=== PATIENT | male | born 1935 | race Caucasian/White ===

== ENCOUNTER 2017-01-19 09:19 | Inpatient (IN) | payer OTHER, BC ==
[~2017-01-19] VITALS: Ht 185.4 cm; Wt 99.3 kg
[~2017-01-19 09:19] MED LIST: ASPEC81 PO; DPKSR500 PO; LATA0.009 OPB; LISI40TA PO; MULT-506 PO; OLAN-111 PO; POLY335019 PO; PSYL55.43 PO; SIMV20TA2 PO; SYN100 PO; [UNRECOGNIZED DRUG - OTHER] NAE
[2017-01-19 10:05] LABS: BASO % 0.1 %; BASO ABS # 0.01 K/uL (0-0.2); COMPLETE YES; EOS % 0.6 %; HEMATOCRIT 53.7 % (42-52); IG% 0.1 %; LYMPH ABS # 1.62 K/uL (1.2-3.4); MEAN CELL VOLUME 95.7 fL (80-100); MEAN CORPUSCULAR HEMOGLOBIN 34.2 pg (25-34); MEAN CORPUSCULAR HGB CONC 35.8 g/dl (32-36); MEAN PLATELET VOLUME 9.9 fL (7.4-10.4); MONO % 9.6 %; NEUT % 71.6 %; PLATELET COUNT 142 K/uL (130-400); RED BLOOD COUNT 5.61 M/uL (4.7-6.1)
[2017-01-19 10:14] LABS: BUN/CREATININE RATIO 12.7 (10-20); CALCIUM 10.1 mg/dl (8.5-10.1); POTASSIUM 4.6 mmol/L (3.5-5.1)
[2017-01-19] MEDS ORDERED: SODIUM CHLORIDE 0.9% 500ML 500 ML IV STA (10:22)
--- NOTE | 2017-01-19 10:26 | DIAGNOSTIC IMAGING REPORT ---
HEAD CT NONCONTRAST CT DOSE: 1285.03 mGy.cm HISTORY: Headache. TECHNIQUE: Multiaxial CT images of the head were performed without the use of intravenous contrast. Automated exposure control was utilized for this study. Comparison: Head CT 04/23/2007. Findings: Mild motion artifact. The calvarium and skull base are intact. There is no mass, hematoma, midline shift, acute infarct. White matter hypodensity is nonspecific but suggestive of microvascular ischemic change. The ventricles and sulci demonstrate mild age-related involutional changes. Impression: No acute intracranial abnormality. Atrophy and microvascular ischemic changes. Electronically signed by: Erik Juares M.D. 01/19/2017 10:25 AM Dictated Date/Time: 01/19/2017 10:21 AM
--- NOTE | 2017-01-19 10:31 | DIAGNOSTIC IMAGING REPORT ---
SINUS CT CT DOSE: HISTORY: Headache. eval for sinusitis TECHNIQUE: Multiaxial CT images of the paranasal sinuses were performed and reformatted in the coronal plane without the use of contrast. COMPARISON: Head CT 04/23/2007. FINDINGS: Mild mucosal thickening within the right frontal sinus and ethmoid air cells. The sphenoid sinuses, maxillary sinuses, and mastoid air cells are clear. There is S-shaped deviation of the nasal septum. No fluid levels within the paranasal sinuses. The bilateral ostiomeatal units are patent. The orbits are unremarkable. IMPRESSION: Mild chronic sinus disease as described above. No fluid levels within the paranasal sinuses. Electronically signed by: Erik Juares M.D. 01/19/2017 10:30 AM Dictated Date/Time: 01/19/2017 10:21 AM
[2017-01-19 10:46] LABS: THYROID STIMULATING HORMONE 1.33 uIu/ml (0.300-4.500)
[2017-01-19 10:49] LABS: PARTIAL THROMBOPLASTIN RATIO 1.1; PROTHROMBIN TIME (PATIENT) 10.7 SECONDS (9.0-12.0)
[2017-01-19 10:57] LABS: URINE APPEARANCE CLEAR (CLEAR); URINE BILIRUBIN NEG (NEG); URINE COLOR YELLOW; URINE EPITHELIAL CELL AUTO 0-5 /lpf (0-5); URINE NITRITE NEG (NEG); URINE PH 8.5 (4.5-7.5); URINE SPECIFIC GRAVITY 1.012 (1.000-1.030); UROBILINOGEN NEG (NEG)
[2017-01-19 11:03] LABS: MANUAL MICROSCOPIC REQUIRED? NO; REVIEW REQ? NO
[2017-01-19 11:04] LABS: SULFASALICYLIC ACID POS (NEG)
[2017-01-19] MEDS ORDERED: ONDANSETRON INJ 2 MG/ML 2 ML VIAL IV STA (11:08)
[2017-01-19] MEDS ORDERED: MoRPHine SULFATE 2 MG/ML CARP IV STA (11:08)
[2017-01-19] MEDS ORDERED: ASPI81TA28 PO (11:10)
--- NOTE | 2017-01-19 11:33 | DIAGNOSTIC IMAGING REPORT ---
CHEST ONE VIEW PORTABLE CLINICAL HISTORY: Shortness of breath. COMPARISON STUDY: Chest radiograph July 30, 2014. FINDINGS: The patient is rotated. There is no pneumothorax. Hazy left basilar opacity is again noted. There are old left rib fractures. Mild cardiomegaly is noted without evidence of pulmonary edema. IMPRESSION: 1. Mild left basilar opacity which is likely chronic. Pneumonia would be difficult to exclude but is considered less likely. 2. Mild right lower lung opacity which favors atelectasis. Electronically signed by: Deng Ayala M.D. 01/19/2017 11:32 AM Dictated Date/Time: 01/19/2017 11:30 AM
[2017-01-19] MEDS ORDERED: DIVA500T3 PO (11:56)
[2017-01-19] MEDS ORDERED: FLUT0.15 NAE (11:58)
[2017-01-19] MEDS ORDERED: LATA0.009 OPB (12:00)
[2017-01-19] MEDS ORDERED: PSYL58.611 PO (12:02)
[2017-01-19] MEDS ORDERED: METR0.7527 TOP (12:08)
[2017-01-19] MEDS ORDERED: LEVO100T7 PO (12:11)
[2017-01-19] MEDS ORDERED: KETOROLAC TROMETHAMINE 15 MG/ML VIAL IM PRN (12:15)
[2017-01-19] MEDS ORDERED: ONDANSETRON INJ 2 MG/ML 2 ML VIAL IV PRN (12:15)
[2017-01-19] MEDS ORDERED: ASPCH81X PO (12:16)
[2017-01-19] MEDS ORDERED: POLYETHYLENE (MIRALAX) 17 GM PACK PO PRN (12:30)
[2017-01-19] MEDS ORDERED: LISINOPRIL 40 MG TAB PO STA (12:35)
--- NOTE | 2017-01-19 12:59 | History and Physical ---
History & Physical Date & Time of Service: January 19, 2017 at 12:17 Chief Complaint: headache Primary Care Physician: Anthony Ace D.O. History of Present Illness Source: patient, spouse, clinic records, hospital records This is an 81 year old male with PMH of HTN, HL, chronic bifascicular block, hypothyroidism, bipolar disorder, and other problems listed below who presents to the ED for headache. Patient states 2-3 days ago he started having tooth pain in left lower molar where he had a prior root canal. Pain was exacerbated with chewing so PO intake has been limited to liquids. Then yesterday afternoon he developed headache described as severe sinus pressure in the left temporal and left maxillary regions. He states Tylenol initially helped but overnight Tylenol was no longer controlling the pain and he was unable to sleep. He rates headache 8/10 despite 2 mg IV morphine given 30 minutes prior to exam. Overnight patient was subjectively warm and cold, "on edge", and shaky. Pt reports "not much" SOB, only that he cannot catch his breath at times due to pain. Patient admits to pollen allergy and states over past 1 week has rhinorrhea, postnasal drip, increased throat clearing. He states urine was more frequent than usual overnight but denies dysuria. Pt has been generally weak and tired. states patient has chronic shuffling gait and ambulates unassisted. Patient denies vision change, itchy watery eyes, focal weakness or numbness, sore throat, ear ache, change in chronic left ear hearing loss, cough , chest pain, abdominal pain, nausea, vomiting, diarrhea, edema, abnormal bleeding. 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 (10) RBBB Status: Chronic (11) Secondary polycythemia Status: Chronic Surgical Problems: (1) S/P TURP (status post transurethral resection of prostate) Status: Chronic Family History Diabetes mellitus Heart disease Hypertension Lung disease Social History Smoking Status: Never Smoker Alcohol Use: none Marital Status: Housing status: lives with significant other Occupational Status: retired Immunizations History of Influenza Vaccine: Yes Influenza Vaccine Date: Jun 23, 2006 History of Tetanus Vaccine?: Unknown History of Pneumococcal: Unknown History of Hepatitis B Vaccine: No Multi-Drug Resistant Organisms History of MDRO: No Allergies Coded Allergies: Rofecoxib (Verified Allergy, Mild, ITCHING, 01/19/17) Clonazepam (Verified Allergy, Unknown, 01/19/17) Ethanol (Verified Allergy, Unknown, 01/19/17) Imipramine (Verified Allergy, Unknown, 01/19/17) Risperidone (Verified Allergy, Unknown, 01/19/17) Thioridazine (Verified Allergy, Unknown, 01/19/17) Valproic Acid (Verified Adverse Reaction, Severe, unknown, 01/19/17) Home Medications Scheduled Aspirin (Aspirin Chewable), 81 MG PO DAILY Divalproex Sodium (Depakote Er), 1 TAB PO BID Fluticasone Propionate (Nasal) (Flonase Allergy Relief), 2 SPRAYS HEYDI DAILY Latanoprost (Xalatan 0.005% Oph Nel), 1 DROPS OPB DAILY Levothyroxine Sodium (Levothyroxine Sodium), 1 TAB PO DAILY Lisinopril (Zestril), 40 MG PO DAILY Multivitamin (Multivitamin), 1 TAB PO DAILY Olanzapine (Zyprexa), 5 MG PO HS Psyllium (Metamucil Smooth Texture), 1 DOSE PO HS Simvastatin (Zocor), 20 MG PO HS Scheduled PRN Polyethylene Glycol 3350 (Miralax), 17 GM PO QPM PRN for Constipation Review of Systems Ten systems reviewed and negative except as listed in HPI. Physical Exam Vital Signs Date Time Temp Pulse Resp B/P Pulse Ox O2 Delivery O2 Flow Rate FiO2 01/19/17 10:49 72 22 187/92 95 Room Air 01/19/17 10:42 79 01/19/17 09:21 36.8 94 20 184/102 96 Room Air General Appearance: WD/WN, + pertinent finding (alert cooperative 81 year old male, lying in bed, appears mildly uncomfortable due to headache, at bedside) Head: normocephalic, atraumatic Eyes: normal inspection, PERRL, EOMI ENT: TMs normal, pharynx normal, + pertinent finding (chronic decreased hearing on the left. no nasal drainage. +left maxillary sinus tenderness. + left posterior mandibular molar tender with mild periodontal inflammation. no fluctuant area. ) Neck: supple, trachea midline Respiratory/Chest: lungs clear, normal breath sounds, no respiratory distress, no accessory muscle use Cardiovascular: regular rate, rhythm, no murmur Abdomen/GI: normal bowel sounds, non tender, soft Extremities/Musculoskelatal: no calf tenderness, no pedal edema Neurologic/Psych: alert, normal mood/affect, oriented x 3, + pertinent finding (mild tremor of upper extremities. strength 5/5 all extremities) Skin: normal color, warm/dry Diagnostics Laboratory Results Results Past 24 Hours Test 01/19/17 09:40 01/19/17 10:31 01/19/17 10:40 Range/Units White Blood Count 9.00 4.8-10.8 K/uL Red Blood Count 5.61 4.7-6.1 M/uL Hemoglobin 19.2 14.0-18.0 g/dL Hematocrit 53.7 42-52 % Mean Corpuscular Volume 95.7 80-100 fL Mean Corpuscular Hemoglobin 34.2 25-34 pg Mean Corpuscular Hemoglobin Concent 35.8 32-36 g/dl Platelet Count 142 130-400 K/uL Mean Platelet Volume 9.9 7.4-10.4 fL Neutrophils (%) (Auto) 71.6 % Lymphocytes (%) (Auto) 18.0 % Monocytes (%) (Auto) 9.6 % Eosinophils (%) (Auto) 0.6 % Basophils (%) (Auto) 0.1 % Neutrophils # (Auto) 6.45 1.4-6.5 K/uL Lymphocytes # (Auto) 1.62 1.2-3.4 K/uL Monocytes # (Auto) 0.86 0.11-0.59 K/uL Eosinophils # (Auto) 0.05 0-0.5 K/uL Basophils # (Auto) 0.01 0-0.2 K/uL RDW Standard Deviation 44.2 36.4-46.3 fL RDW Coefficient of Variation 12.7 11.5-14.5 % Immature Granulocyte % (Auto) 0.1 % Immature Granulocyte # (Auto) 0.01 0.00-0.02 K/uL Sodium Level 131 136-145 mmol/L Potassium Level 4.6 3.5-5.1 mmol/L Chloride Level 94 98-107 mmol/L Carbon Dioxide Level 32 21-32 mmol/L Anion Gap 5.0 3-11 mmol/L Blood Urea Nitrogen 13 7-18 mg/dl Creatinine 1.00 0.60-1.40 mg/dl Est Creatinine Clear Calc Drug Dose 71.8 ml/min Estimated GFR () 80.9 Estimated GFR (Non- 69.8 BUN/Creatinine Ratio 12.7 10-20 Random Glucose 203 70-99 mg/dl Calcium Level 10.1 8.5-10.1 mg/dl Total Bilirubin 0.6 0.2-1 mg/dl Direct Bilirubin 0.2 0-0.2 mg/dl Aspartate Amino Transf (AST/SGOT) 17 15-37 U/L Alanine Aminotransferase (ALT/SGPT) 37 12-78 U/L Alkaline Phosphatase 58 45-117 U/L Troponin I 0.063 0-0.045 ng/ml Total Protein 8.4 6.4-8.2 gm/dl Albumin 4.3 3.4-5.0 gm/dl Amylase Level 90 25-115 U/L Thyroid Stimulating Hormone (TSH) 1.330 0.300-4.500 uIu/ml Free Thyroxine 0.96 0.80-1.60 ng/dl Valproic Acid (Depakene) Level 52 50-100 mcg/ml Prothrombin Time 10.7 9.0-12.0 SECONDS Prothromb Time International Ratio 1.0 0.9-1.1 Activated Partial Thromboplast Time 28.1 21.0-31.0 SECONDS Partial Thromboplastin Ratio 1.1 Urine Color YELLOW Urine Appearance CLEAR CLEAR Urine pH 8.5 4.5-7.5 Urine Specific [place] 1.012 1.000-1.030 Urine Protein 1+ NEG Urine Glucose (UA) 1+ NEG Urine Ketones NEG NEG Urine Occult Blood TRACE NEG Urine Nitrite NEG NEG Urine Bilirubin NEG NEG Urine Urobilinogen NEG NEG Urine Leukocyte Esterase TRACE NEG Urine WBC (Auto) 1-5 0-5 /hpf Urine RBC (Auto) 0-4 0-4 /hpf Urine Hyaline Casts (Auto) 1-5 0-5 /lpf Urine Epithelial Cells (Auto) 0-5 0-5 /lpf Urine Bacteria (Auto) NEG NEG Diagnostic Radiology SINUS CT CT DOSE: HISTORY: Headache. eval for sinusitis TECHNIQUE: Multiaxial CT images of the paranasal sinuses were performed and reformatted in the coronal plane without the use of contrast. COMPARISON: Head CT 04/23/2007. FINDINGS: Mild mucosal thickening within the right frontal sinus and ethmoid air cells. The sphenoid sinuses, maxillary sinuses, and mastoid air cells are clear. There is S-shaped deviation of the nasal septum. No fluid levels within the paranasal sinuses. The bilateral ostiomeatal units are patent. The orbits are unremarkable. IMPRESSION: Mild chronic sinus disease as described above. No fluid levels within the paranasal sinuses. HEAD CT NONCONTRAST CT DOSE: 1285.03 mGy.cm HISTORY: Headache. TECHNIQUE: Multiaxial CT images of the head were performed without the use of intravenous contrast. Automated exposure control was utilized for this study. Comparison: Head CT 04/23/2007. Findings: Mild motion artifact. The calvarium and skull base are intact. There is no mass, hematoma, midline shift, acute infarct. White matter hypodensity is nonspecific but suggestive of microvascular ischemic change. The ventricles and sulci demonstrate mild age-related involutional changes. Impression: No acute intracranial abnormality. Atrophy and microvascular ischemic changes. CHEST ONE VIEW PORTABLE CLINICAL HISTORY: Shortness of breath. COMPARISON STUDY: Chest radiograph July 30, 2014. FINDINGS: The patient is rotated. There is no pneumothorax. Hazy left basilar opacity is again noted. There are old left rib fractures. Mild cardiomegaly is noted without evidence of pulmonary edema. IMPRESSION: 1. Mild left basilar opacity which is likely chronic. Pneumonia would be difficult to exclude but is considered less likely. 2. Mild right lower lung opacity which favors atelectasis. EKG sinus rhythm with sinus arrhythmia and 1st degree AV block, rate 69 bpm, RBBB, LAFB, bifascicular block, possible LVH. no significant change from prior EKG in [facility] from May 06 2016. Impression Assessment and Plan HEADACHE Likely due to dental infection CT head- no acute findings CT sinuses- chronic sinusitis No sign of sepsis Start IV Unasyn Pain control with PRN Toradol Mechanical soft diet to advance as tolerated F/u with dentist after discharge MILDLY ABNORMAL TROPONIN Denies chest pain EKG shows chronic RBBB, LAFB, bifascicular block Likely due to elevated BP Recheck troponin at 1500 HYPERTENSION BP elevated in ER Likely due to missed lisinopril this morning, pain, and anxiety Give missed dose of lisinopril 40 mg now Continue home lisinopril 40 mg daily MILD HYPONATREMIA Na is 131; no recent labs for comparison; was 134 in 2013 Likely hypovolemic Gentle NSS Recheck PRP in am HYPERGLYCEMIA Random glucose 200 in ER Check A1c Monitor BSG AC HS DYSLIPIDEMIA Continue statin HYPOTHYROIDISM TSH is WNL Continue levothyroxine BIPOLAR DISORDER Stable, continue home medications CODE STATUS Full code per my discussion with the patient DVT PROPHYLAXIS Lovenox SQ DISPOSITION care services manager consulted for discharge planning PT and OT evaluations Lives at home with Patient seen in collaboration with Dr. Peraza. Please see his addendum. Attending Addendum; The patient was seen and examined Complains of Headache and left facial pain No Chest pain,palpitation or SOB No abdominal pain,nausea and or vomiting O/E Hemodynamically stable HEENT -unremarkable ,some sinus tenderness on left Chest-clear Heart-regular Abdomen-benign Labs and Imaging studies were reviewed Agree with the assessment and plan Troponin went up to 0.06 to 0.1-transferred to Tele ,may need Heparin IV if goes up further Dr Clement Peraza VTE Prophylaxis VTE Risk Assessment Done? Y/N: Yes Risk Level: Moderate
[2017-01-19 13:09] LABS: ESTIMATED AVERAGE GLUCOSE 126 mg/dl; HA1C FLAG Normal (Normal)
[2017-01-19 13:30] VITALS: BP 172/58; PULSE 89; TEMP 36.7; Ht 185.4 cm; Wt 99.3 kg
[2017-01-19 13:37] VITALS: BP 172/58; PULSE 89; TEMP 36.7; O2SAT 94
[2017-01-19] MEDS ORDERED: IV FLUIDS COMPLETED PRN (13:45)
[2017-01-19] MEDS: SODIUM CHLORIDE 0.9% 1000ML 1,000 ML IV SCH (13:50)
[2017-01-19] MEDS: AMPICILLIN/SULBACTAM SOD INJ 1,500 MG in SODIUM CHLORIDE 0.9% 100ML 100 ML IV SCH ×2 (14:00→20:25)
[2017-01-19] MEDS ORDERED: NURSING VERBAL MED ORDER ONE (14:45)
[2017-01-19] MEDS ORDERED: KETOROLAC TROMETHAMINE 15 MG/ML VIAL IV. PRN (15:00)
[2017-01-19 15:33] VITALS: BP 169/76; PULSE 80; TEMP 37; O2SAT 95
[2017-01-19] MEDS: MoRPHine SULFATE 2 MG/ML CARP IV PRN ×2 (16:51→21:06)
--- NOTE | 2017-01-19 16:59 | EMERGENCY ROOM VISIT NOTE ---
History Report prepared by Tg: Markel Hall Under the Supervision of: Dr. Juan C Johnson M.D. First contact with patient: 09:37 Chief Complaint: HEADACHE Stated Complaint: SEVERE HEADACHE,STROKE SYMPTOMS History of Present Illness The patient is a 81 year old male who presents to the Emergency Room with complaints of a headache starting yesterday evening around 4-5 pm. He reports the pain to be located on the left side of the head, frontal area, and facial. He describes it as a sharp pain which is relieved with a Tylenol but the pressure has been persistent. He feels like it is a sinus headache. He has had similar headaches in the past but not for a number of years. He does have environmental allergies that generally give him sinus symptoms. He took 500 mg Tylenol 3 times. The first 2 times he had some relief but did not have any relief this morning. He had nausea after taking the Tylenol but denies vomiting. He also complains of sinus congestion and shortness of breath. He reports feeling hot and cold yesterday but denies any fevers. He normally has a slight tremor which worsened this morning. He reports some generalized weakness. He denies chest pain, numbness or tingling, focal weakness, or any other complaints. As per patient and his , the patient had a similar headache about 10 years ago. The patient's is unsure if he was diagnosed with a stroke or not at the time. He started having tooth pain 2 days ago. The patient reports one molar with a root canal that has been more tender than normal. He feels like it might be giving him pain in his face. He has seasonal allergies. He takes baby aspirin but denies any other blood thinners. The patient is no longer on lithium. He is on Depakote and olanzapine. Source of History: patient, spouse/significant other Onset: yesterday evening around 4-5 pm Position: head Quality: pressure, sharp Timing: constant Modifying Factors (Relieving): tylenol Associated Symptoms: + SOB, + nausea, + weakness, No chest pain, No fevers, No numbness, No vomiting Review of Systems See HPI for pertinent positives & negatives. A total of 10 systems reviewed and were otherwise negative. 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 Surgical Problems: (1) S/P TURP (status post transurethral resection of prostate) Family History Diabetes mellitus Heart disease Hypertension Lung disease Social History Smoking Status: Never Smoker Marital Status: Housing Status: lives with significant other Occupation Status: retired Current/Historical Medications Scheduled Aspirin (Aspirin Chewable), 81 MG PO DAILY Divalproex Sodium (Depakote Er), 1 TAB PO BID Fluticasone Propionate (Nasal) (Flonase Allergy Relief), 2 SPRAYS HEYDI DAILY Latanoprost (Xalatan 0.005% Oph Nel), 1 DROPS OPB DAILY Levothyroxine Sodium (Levothyroxine Sodium), 1 TAB PO DAILY Lisinopril (Zestril), 40 MG PO DAILY Multivitamin (Multivitamin), 1 TAB PO DAILY Olanzapine (Zyprexa), 5 MG PO HS Psyllium (Metamucil Smooth Texture), 1 DOSE PO HS Simvastatin (Zocor), 20 MG PO HS Scheduled PRN Polyethylene Glycol 3350 (Miralax), 17 GM PO QPM PRN for Constipation Allergies Coded Allergies: Rofecoxib (Verified Allergy, Mild, ITCHING, 01/19/17) Clonazepam (Verified Allergy, Unknown, 01/19/17) Ethanol (Verified Allergy, Unknown, 01/19/17) Imipramine (Verified Allergy, Unknown, 01/19/17) Risperidone (Verified Allergy, Unknown, 01/19/17) Thioridazine (Verified Allergy, Unknown, 01/19/17) Valproic Acid (Verified Adverse Reaction, Severe, unknown, 01/19/17) Physical Exam Vital Signs Date Time Temp Pulse Resp B/P Pulse Ox O2 Delivery O2 Flow Rate FiO2 01/19/17 12:10 81 18 173/92 95 Room Air 01/19/17 10:49 72 22 187/92 95 Room Air 01/19/17 10:42 79 01/19/17 09:21 36.8 94 20 184/102 96 Room Air Physical Exam Constitutional: Vital signs reviewed. Eyes: Pupils are equal round reactive to light. Conjunctiva are noninjected. ENT: Pharynx is clear without erythema or exudate. Mucous membranes are moist. Neck supple without meningeal signs. Some maxillary sinus tenderness with inflammation of the nasal turbinates, no percussion tenderness to the maxillary teeth. Respiratory: Clear to auscultation bilaterally. Breath sounds are equal bilaterally. Cardiovascular: Regular rate and rhythm. No rubs or gallops. GI: Soft, nondistended and nontender. Bowel sounds are present. Musculoskeletal: No peripheral edema. No lower extremity tenderness. Integumentary: No cyanosis. Neurological: The patient is awake and alert. Cranial nerves II-XII are intact. Hard of hearing. Motor is 5 out of 5 all extremities. Sensation is intact to light touch all extremities. Normal speech. No pronator drift. No limb ataxia. Resting tremor. Psychiatric: Normal affect. Medical Decision & Procedures ER Provider Diagnostic Interpretation: X-ray results as stated below per interpretation by me and the radiologist: CHEST ONE VIEW PORTABLE CLINICAL HISTORY: Shortness of breath. COMPARISON STUDY: Chest radiograph July 30, 2014. FINDINGS: The patient is rotated. There is no pneumothorax. Hazy left basilar opacity is again noted. There are old left rib fractures. Mild cardiomegaly is noted without evidence of pulmonary edema. IMPRESSION: 1. Mild left basilar opacity which is likely chronic. Pneumonia would be difficult to exclude but is considered less likely. 2. Mild right lower lung opacity which favors atelectasis. Electronically signed by: Deng Ayala M.D. 01/19/2017 11:32 AM Dictated Date/Time: 01/19/2017 11:[address] results as stated below per my review and radiologist interpretation. HEAD CT NONCONTRAST CT DOSE: 1285.03 mGy.cm HISTORY: Headache. TECHNIQUE: Multiaxial CT images of the head were performed without the use of intravenous contrast. Automated exposure control was utilized for this study. Comparison: Head CT 04/23/2007. Findings: Mild motion artifact. The calvarium and skull base are intact. There is no mass, hematoma, midline shift, acute infarct. White matter hypodensity is nonspecific but suggestive of microvascular ischemic change. The ventricles and sulci demonstrate mild age-related involutional changes. Impression: No acute intracranial abnormality. Atrophy and microvascular ischemic changes. Electronically signed by: Erik Juares M.D. 01/19/2017 10:25 AM Dictated Date/Time: 01/19/2017 10:[address] DOSE: HISTORY: Headache. eval for sinusitis TECHNIQUE: Multiaxial CT images of the paranasal sinuses were performed and reformatted in the coronal plane without the use of contrast. COMPARISON: Head CT 04/23/2007. FINDINGS: Mild mucosal thickening within the right frontal sinus and ethmoid air cells. The sphenoid sinuses, maxillary sinuses, and mastoid air cells are clear. There is S-shaped deviation of the nasal septum. No fluid levels within the paranasal sinuses. The bilateral ostiomeatal units are patent. The orbits are unremarkable. IMPRESSION: Mild chronic sinus disease as described above. No fluid levels within the paranasal sinuses. Electronically signed by: Erik Jaures M.D. 01/19/2017 10:30 AM Dictated Date/Time: 01/19/2017 10:21 AM Laboratory Results 01/19/17 09:40 Red Blood Count 5.61, Mean Corpuscular Volume 95.7, Mean Corpuscular Hemoglobin 34.2, Mean Corpuscular Hemoglobin Concent 35.8, Mean Platelet Volume 9.9, Neutrophils (%) (Auto) 71.6, Lymphocytes (%) (Auto) 18.0, Monocytes (%) (Auto) 9.6, Eosinophils (%) (Auto) 0.6, Basophils (%) (Auto) 0.1, Neutrophils # (Auto) 6.45, Lymphocytes # (Auto) 1.62, Monocytes # (Auto) 0.86, Eosinophils # (Auto) 0.05, Basophils # (Auto) 0.01 01/19/17 09:40 Test 01/19/17 09:40 01/19/17 10:31 01/19/17 10:40 White Blood Count 9.00 K/uL (4.8-10.8) Red Blood Count 5.61 M/uL (4.7-6.1) Hemoglobin 19.2 g/dL (14.0-18.0) Hematocrit 53.7 % (42-52) Mean Corpuscular Volume 95.7 fL (80-100) Mean Corpuscular Hemoglobin 34.2 pg (25-34) Mean Corpuscular Hemoglobin Concent 35.8 g/dl (32-36) Platelet Count 142 K/uL (130-400) Mean Platelet Volume 9.9 fL (7.4-10.4) Neutrophils (%) (Auto) 71.6 % Lymphocytes (%) (Auto) 18.0 % Monocytes (%) (Auto) 9.6 % Eosinophils (%) (Auto) 0.6 % Basophils (%) (Auto) 0.1 % Neutrophils # (Auto) 6.45 K/uL (1.4-6.5) Lymphocytes # (Auto) 1.62 K/uL (1.2-3.4) Monocytes # (Auto) 0.86 K/uL (0.11-0.59) Eosinophils # (Auto) 0.05 K/uL (0-0.5) Basophils # (Auto) 0.01 K/uL (0-0.2) RDW Standard Deviation 44.2 fL (36.4-46.3) RDW Coefficient of Variation 12.7 % (11.5-14.5) Immature Granulocyte % (Auto) 0.1 % Immature Granulocyte # (Auto) 0.01 K/uL (0.00-0.02) Anion Gap 5.0 mmol/L (3-11) Est Creatinine Clear Calc Drug Dose 71.8 ml/min Estimated GFR () 80.9 Estimated GFR (Non- 69.8 BUN/Creatinine Ratio 12.7 (10-20) Estimated Average Glucose 126 mg/dl Hemoglobin A1c 6.0 % (4.5-5.6) Calcium Level 10.1 mg/dl (8.5-10.1) Total Bilirubin 0.6 mg/dl (0.2-1) Direct Bilirubin 0.2 mg/dl (0-0.2) Aspartate Amino Transf (AST/SGOT) 17 U/L (15-37) Alanine Aminotransferase (ALT/SGPT) 37 U/L (12-78) Alkaline Phosphatase 58 U/L (45-117) Total Protein 8.4 gm/dl (6.4-8.2) Albumin 4.3 gm/dl (3.4-5.0) Amylase Level 90 U/L (25-115) Thyroid Stimulating Hormone (TSH) 1.330 uIu/ml (0.300-4.500) Free Thyroxine 0.96 ng/dl (0.80-1.60) Valproic Acid (Depakene) Level 52 mcg/ml (50-100) Prothrombin Time 10.7 SECONDS (9.0-12.0) Prothromb Time International Ratio 1.0 (0.9-1.1) Activated Partial Thromboplast Time 28.1 SECONDS (21.0-31.0) Partial Thromboplastin Ratio 1.1 Urine Color YELLOW Urine Appearance CLEAR (CLEAR) Urine pH 8.5 (4.5-7.5) Urine Specific [place] 1.012 (1.000-1.030) Urine Protein 1+ (NEG) Urine Glucose (UA) 1+ (NEG) Urine Ketones NEG (NEG) Urine Occult Blood TRACE (NEG) Urine Nitrite NEG (NEG) Urine Bilirubin NEG (NEG) Urine Urobilinogen NEG (NEG) Urine Leukocyte Esterase TRACE (NEG) Urine WBC (Auto) 1-5 /hpf (0-5) Urine RBC (Auto) 0-4 /hpf (0-4) Urine Hyaline Casts (Auto) 1-5 /lpf (0-5) Urine Epithelial Cells (Auto) 0-5 /lpf (0-5) Urine Bacteria (Auto) NEG (NEG) Laboratory results as reviewed by me. Medications Administered Medications (Trade) Dose Ordered Sig/Arjun Route Start Time Stop Time Status Last Admin Dose Admin Morphine Sulfate (MoRPHine SULFATE INJ) 2 mg NOW STAT IV 01/19/17 11:08 01/19/17 11:10 DC 01/19/17 11:15 2 MG Ondansetron HCl (Zofran Inj) 2 mg NOW STAT IV 01/19/17 11:08 01/19/17 11:10 DC 01/19/17 11:15 2 MG ECG Indication: SOB/dyspnea Rate (beats per minute): 69 Rhythm: sinus rhythm Findings: 1st degree AV block, RBBB, other (left anterior fascicular block; no ST elevations) Comparison ECG Date: July 30, 2014 Change: no significant change ED Course 0937: The patient was evaluated in room B04B. A complete history and physical exam was performed. 1108: Zofran Inj 2 mg IV, Morphine Sulfate 2 mg IV 1110: I discussed test results with the patient and his . Upon further questioning, the patient reports that he noticed some tenseness in his chest overnight but currently denies any chest discomfort. The patient and his verbalized agreement of the treatment plan. He will be evaluated for further management and care. 1115: I discussed the patient's case with Dr. Perzaa, from [facility]. Medical Decision This is an 81-year-old male who presents with a headache. Differential diagnosis includes sinusitis, allergic rhinitis, dental abscess, intracranial mass, intracranial hemorrhage.I did perform a limited focused review of portions of the patient's old chart on the electronic medical record. The patient has had no recent pertinent visits to this hospital. I did evaluate the patient as noted above. The patient is presenting with sinus symptoms and his states he has been shaky and generally weak today. He has a history of sinus issues but has not had a sinus headache for 10 years. He is neurologically intact. IV access was established. The patient was placed on a continuous director of cardiac cath lab. I did order a CT of the head and sinuses. I did review the images myself as well as the radiology report as described above. There there is no evidence of acute sinusitis or abscess or intracranial hemorrhage. I did order and personally review the patient's 12- lead EKG and chest x-ray as described above. I did order and review the patient 's blood work as noted in the electronic medical record. His troponin is slightly elevated. I did reevaluate the patient. He is still having a headache. He does state that he has noticed some twinges in his chest recently but he didn't really think much of it because his headache was bothering him more. I did discuss the test results with the patient. I did recommend hospitalization for repeat cardiac enzymes and further evaluation of his headache. I did treat him with morphine and Zofran IV for his pain. I did discuss the case with the hospitalist and case sealer. Consults Time Called: 1114 Consulting Physician: Dr. Peraza, from [facility] Returned Call: 1115 I discussed the patient's case with Dr. Peraza, from [facility]. Impression Primary Impression: Acute headache Additional Impressions: Hyponatremia Elevated troponin Generalized weakness Hyperglycemia Scribe Attestation The scribe's documentation has been prepared under my direct and personally reviewed by me in its entirety. I confirm that the note above accurately reflects all work, treatment, procedures, and medical decision making performed by me. Departure Information Dispostion Being Evaluated By Hospitalist Referrals Anthony Ace D.O. (PCP) Patient Instructions [facility] Problem Qualifiers Primary Impression: Acute headache Headache type: unspecified
[2017-01-19 19:15] VITALS: BP 178/91; PULSE 80; TEMP 36.9; O2SAT 94
[2017-01-19] MEDS: CLONIDINE HCL 0.1 MG TAB PO PRN (20:25)
[2017-01-19] MEDS: ENOXAPARIN 40 MG/0.4 ML SYR SQ SCH (20:27)
[2017-01-19] MEDS: SIMVASTATIN 20 MG TAB PO SCH (20:27)
[2017-01-19] MEDS: OLANZAPINE 5 MG TAB PO SCH (20:27)
[2017-01-19] MEDS: DIVALPROEX 500 MG EXTENDED RELEASE TAB PO SCH (20:28)
[2017-01-19] MEDS: PSYLLIUM 58.6% PWD PACK S\\F PO SCH (21:07)
[2017-01-19 23:59] VITALS: BP 171/91; PULSE 92; TEMP 36.8; O2SAT 97
[2017-01-20] MEDS: SODIUM CHLORIDE 0.9% 1000ML 1,000 ML IV SCH ×2 (01:03→12:28)
[2017-01-20] MEDS: MoRPHine SULFATE 2 MG/ML CARP IV PRN ×2 (01:04→21:17)
[2017-01-20] MEDS: AMPICILLIN/SULBACTAM SOD INJ 1,500 MG in SODIUM CHLORIDE 0.9% 100ML 100 ML IV SCH ×4 (02:24→19:41)
[2017-01-20 05:14] VITALS: BP 164/77; PULSE 86; TEMP 36.6; O2SAT 92
[2017-01-20] MEDS: CLONIDINE HCL 0.1 MG TAB PO PRN ×2 (05:25→23:41)
[2017-01-20] MEDS: LEVOTHYROXINE 100 MCG TAB PO SCH (05:25)
[2017-01-20 06:43] LABS: BUN/CREATININE RATIO 14.9 (10-20); CALCIUM 8.9 mg/dl (8.5-10.1); CREATININE 0.83 mg/dl (0.60-1.40); POTASSIUM 4.6 mmol/L (3.5-5.1)
[2017-01-20] MEDS: MULTIVITAMIN TAB PO SCH (07:32)
[2017-01-20] MEDS: FLUTICASONE PROPIONATE NA SPR 16 GM BTL NAE SCH (07:32)
[2017-01-20] MEDS: LATANOPROST 0.005% OP SOLN 2.5 ML BTL OPB SCH (07:32)
[2017-01-20] MEDS: DIVALPROEX 500 MG EXTENDED RELEASE TAB PO SCH ×2 (07:33→20:42)
[2017-01-20] MEDS: ASPIRIN 81 MG ECTAB PO SCH (07:33)
[2017-01-20] MEDS: LISINOPRIL 40 MG TAB PO SCH (07:33)
[2017-01-20] MEDS: ACETAMINOPHEN 325 MG TAB PO PRN (07:37)
[2017-01-20 08:05] VITALS: BP 144/86; PULSE 92; TEMP 36.8; O2SAT 92
[2017-01-20 11:39] VITALS: BP 140/61; PULSE 65; TEMP 36.8; O2SAT 91
--- NOTE | 2017-01-20 11:41 | CARDIOLOGY CONSULTATION ---
DATE OF CONSULTATION: 01/20/2017 REFERRING PHYSICIAN: Dr. Pratibha Brown. REASON FOR CONSULTATION: Elevated troponin. CHIEF COMPLAINT ON ADMISSION: Headache. HISTORY OF PRESENT ILLNESS: Mr. Ferreira is an 81-year-old gentleman presented to the Emergency Department with 2-3 days of left-sided tooth pain in the area where he had a prior root canal. The pain became quite severe, limiting his p.o. intake. On the day prior to admission the pain radiated up to his head and frontal sinus region. He described a left temporal as well as left frontal pressure. Tylenol initially helped, however, was no longer controlling the pain. He came to the Emergency Department where he received intravenous morphine. He rested comfortably last night. This morning he notes mild pressure in his head and dental region. Denies chest pain or unusual shortness of breath. Blood pressure elevated on presentation associated with significant discomfort. Denies orthopnea, PND, lower extremity edema. No falls or injuries recently. Offers no other complaints at this time. REVIEW OF SYSTEMS: The pertinent positive noted above, a comprehensive 10-system review is otherwise negative. PAST MEDICAL HISTORY: 1. Chronic conduction disease with bifascicular block. 2. History of atypical chest discomfort normal stress testing. 3. Dyslipidemia. 4. Hypertension. 5. Secondary polycythemia. 6. BPH. 7. Bipolar disorder. 8. Allergic rhinitis. 9. Hypothyroidism. PAST SURGICAL HISTORY: 1. TURP. 2. Root canal. FAMILY HISTORY: Negative for premature CAD or sudden cardiac . SOCIAL HISTORY: Lifelong nonsmoker, denies alcohol or illicit drug use. He is and lives with his . ALLERGIES: 1. CLONAZEPAM. 2. DEPAKOTE. 3. MELLARIL. 4. PSEUDOEPHEDRINE 5. ALL ANTIHISTAMINES. 6. RISPERDAL 7. ROFECOXIB. 8. THIORIDAZINE. CURRENT OUTPATIENT MEDICATIONS: 1. Aspirin 81 mg daily. 2. Depakote ER 500 mg in the morning, 500 in the evening. 3. Flonase 2 sprays daily. 4. Xalatan daily. 5. Synthroid 100 mcg daily. 6. Lisinopril 40 mg daily. 7. Multivitamin daily. 8. Simvastatin 20 mg daily. 9. Metamucil daily. 10. Zyprexa 5 mg at bedtime. ECG ON ADMISSION: Sinus rhythm, first-degree AV block, right bundle-branch block, left anterior fascicular block. CHEST X-RAY: Atelectasis, no congestive heart failure. LABORATORY DATA: White blood cell count 9.00, hemoglobin is 19.2, platelet count is 142. Sodium 131, potassium 4.6, CO2 is 25, BUN is 12, creatinine is 0.83. INR is 1.0. Valproic acid 52. Initial troponin 0.063, peak troponin 0.125 with a repeat troponin of 0.106. Telemetry demonstrates sinus rhythm, right bundle-branch block. CT of the head: No acute intracranial abnormality. CT of the sinuses: Chronic disease, no fluid levels. PHYSICAL EXAMINATION: VITAL SIGNS: Temperature is 36 centigrade, pulse 86 beats per minute and regular, respiratory rate is 22, blood pressure is 144/86, SaO2 of 92% on 2 liters. GENERAL: NAD, awake, alert and oriented x3, mild slurred speech. THROAT: His mucous membranes are moist. No scleral icterus. Conjunctivae pink. NECK: Supple. There is no JVD. No HJR. HEART: Regular with a normal S1 and S2, no murmur, rub, or gallop. LUNGS: Clear without rales, rhonchi or wheeze. ABDOMEN: Soft, nontender. No rebound or guarding. Normal bowel sounds. EXTREMITIES: Warm and dry without clubbing, cyanosis, or edema. Posterior tibial pulses are 2/4 bilaterally. NEUROLOGIC: Demonstrates mild slurred speech, no facial asymmetry, the patient moves all extremities freely. FINAL IMPRESSION: 1. An 81-year-old male admitted with headache and dental pain. Mildly elevated troponin is not indicative of acute coronary syndrome. There are no ischemic ECG changes nor anginal symptoms. 2. Accelerated hypertension -- improved with pain control. 3. Dyslipidemia. 4. Bifascicular block without evidence of significant bradycardia or dysrhythmia on telemetry, previous Holter monitors unremarkable. 5. Polycythemia with elevated hemoglobin. PLAN AND RECOMMENDATIONS: Resting 2D transthoracic echo will be reviewed when available. If there are no regional wall motion abnormalities, no further cardiac testing will be indicated at this time. We will continue to follow blood pressure on current antihypertensive medication including lisinopril. Pain control as per internal medicine. Consider adding low dose diuretic therapy, HCTZ 12.5 mg daily. Other medications including aspirin and simvastatin will be continued as previously ordered. Thank you for allowing me to take part in the care of your patient. ANTHONY
[2017-01-20 16:10] VITALS: BP_SYST 131; BP_SYST 142; BP_DIAS 51; BP_DIAS 83; PULSE 67; PULSE 83; TEMP 37; O2SAT 92; O2SAT 93
--- NOTE | 2017-01-20 16:25 | ECHOCARDIOGRAM REPORT ---
*NOTICE TO RECEIVING CONSTITUTION PARTY AGENCY This information is strictly Confidential and protected under [place] law. [place] law prohibits you from making any further disclosure of this information unless further disclosure is expressly permitted by the written consent of the person to whom it pertains or is authorized by law. A general authorization for the release of medical or other information is not sufficient for this purpose. Hospital accepts no responsibility if the information is made available to any other person, INCLUDING THE PATIENT. Interpretation Summary * Name: TAI COHEN Study Date: 01/20/2017 09:19 AM BP: 144/86 mmHg * Patient Location: C.2E\S\E204\S\1 HR: 73 * : 1935 (M/d/yyy) Gender: Male Height: 73 in * Age: 81 yrs Ethnicity: [place] Weight: 227 lb * Ordering Physician: Kendy Arreaga * Referring Physician: Self, Referred * Performed By: Josefa Banuelos RCS * * Reason For Study: ELEVATED TROPONIN / STROKE SYMPTIONS / HEADACHE * BSA: 2.3 m2 * The study was technically adequate. * There is no comparison study available. * -- Conclusions -- * Left ventricular systolic function is normal. * Ejection Fraction = 60-65%. * There is mild concentric left ventricular hypertrophy. * Grade I diastolic dysfunction, (abnormal relaxation pattern). * Focal calcification of the anterior mitral valve leaflet. * Significant mitral regurgitation is absent. * There is no mitral valve stenosis. Procedure Details * A complete two-dimensional transthoracic echocardiogram was performed (2D, M-mode, Doppler and color flow Doppler). * The study was technically difficult. * There were technical limitations due to patient'spoor positioning * A saline contrast injection was performed to assess for cardiac shunting. * The injection was performed through an intravenous line in the right arm. * The attending nurse who injected the saline contrast was MENDY WALKER RN. * A total of 10 cc of agitated saline was given. * A contrast injection of Definity was performed to improve assessment of LV function. * Contrast was injected into an intravenous site in the right arm. * One vial of Definity ultrasound contrast was diluted in normal saline to a total volume of 10 ml. A total of '2' ml of solution was administered during imaging. * Lot # [id number] of Definity utilized for procedure. * Expiration date DEC 28. Left Ventricle * The left ventricle is normal in size. * There is no thrombus. * There is mild concentric left ventricular hypertrophy. * The basal septum is thickened and angulated consistent with sigmoid septum. * Ejection Fraction = 60-65%. * Left ventricular systolic function is normal. * The left ventricular wall motion is normal. Right Ventricle * The right ventricle is normal size. * The right ventricular systolic function is normal as assessed by tricuspid annular plane systolic excursion (TAPSE) (normal >1.5 cm). Atria * The left atrial size is normal. * Right atrial size is normal. * There is no evidence of atrial septal defect, but resolution does not allow assessment for a patent foramen ovale. Mitral Valve * The mitral valve is normal. * Focal calcification of the anterior mitral valve leaflet. * There is no mitral valve stenosis. * Significant mitral regurgitation is absent. Tricuspid Valve * The tricuspid valve is normal. * There is no tricuspid stenosis. * There is trace tricuspid regurgitation. Aortic Valve * The aortic valve is trileaflet. * Aortic stenosis is absent. * There is no significant aortic regurgitation. Pulmonic Valve * The pulmonary valve is not well seen, but the Doppler examination is normal without significant regurgitation or stenosis. Great Vessels * The aortic root is normal size. Pericardium/Pleural * There is no pericardial effusion. Great Vessels * Normal inferior vena cava diameter and respiratory variation suggests normal central venous pressure. Left Ventricular Diastolic Function * Grade I diastolic dysfunction, (abnormal relaxation pattern). MMode 2D Measurements and Calculations IVSd 1.3 cm IVSs 2.1 cm LVIDd 5.0 cm LVIDs 3.0 cm LVPWd 1.3 cm LVPWs 1.7 cm IVS/LVPW 1.0 FS 40.6 % EDV(Teich) 120.4 ml ESV(Teich) 34.8 ml EF(Teich) 71.1 % EDV(cubed) 128.0 ml ESV(cubed) 26.8 ml EF(cubed) 79.1 % % IVS thick 62.0 % % LVPW thick 34.8 % LV mass(C)d 264.8 grams LV mass(C)dI 116.6 grams/m\S\2 LV mass(C)s 246.2 grams LV mass(C)sI 108.4 grams/m\S\2 SV(Teich) 85.7 ml SI(Teich) 37.7 ml/m\S\2 SV(cubed) 101.2 ml SI(cubed) 44.6 ml/m\S\2 Ao root diam 3.8 cm Ao root area 11.0 cm\S\2 ACS 2.0 cm LA dimension 3.4 cm LA/Ao 0.90 LVOT diam 1.8 cm LVOT area 2.5 cm\S\2 LVAd ap4 31.8 cm\S\2 LVLd ap4 8.8 cm EDV(MOD-sp4) 93.5 ml EDV(sp4-el) 97.0 ml LVAs ap4 18.3 cm\S\2 LVLs ap4 7.5 cm ESV(MOD-sp4) 37.1 ml ESV(sp4-el) 37.6 ml EF(MOD-sp4) 60.4 % EF(sp4-el) 61.2 % LVAd ap2 34.5 cm\S\2 LVLd ap2 8.6 cm EDV(MOD-sp2) 114.8 ml EDV(sp2-el) 118.3 ml LVAs ap2 19.8 cm\S\2 LVLs ap2 7.3 cm ESV(MOD-sp2) 44.2 ml ESV(sp2-el) 46.0 ml EF(MOD-sp2) 61.5 % EF(sp2-el) 61.1 % LVLd %diff -3.17 % EDV(MOD-bp) 102.2 ml LVLs %diff -3.72 % ESV(MOD-bp) 39.5 ml EF(MOD-bp) 61.3 % SV(MOD-sp4) 56.5 ml SI(MOD-sp4) 24.9 ml/m\S\2 SV(MOD-sp2) 70.6 ml SI(MOD-sp2) 31.1 ml/m\S\2 SV(MOD-bp) 62.6 ml SI(MOD-bp) 27.6 ml/m\S\2 SV(sp4-el) 59.4 ml SI(sp4-el) 26.2 ml/m\S\2 SV(sp2-el) 72.3 ml SI(sp2-el) 31.8 ml/m\S\2 Doppler Measurements and Calculations MV E max yuridia 82.0 cm/sec MV A max yuridia 119.7 cm/sec MV E/A 0.68 MV P1/2t max yuridia 83.7 cm/sec MV P1/2t 86.3 msec MVA(P1/2t) 2.5 cm\S\2 MV dec slope 284.0 cm/sec\S\2 Ao V2 max 131.0 cm/sec Ao max PG 6.9 mmHg Ao max PG (full) 0.53 mmHg SYLWIA(V,A) 2.4 cm\S\2 SYLWIA(V,D) 2.4 cm\S\2 LV V1 max PG 6.3 mmHg LV V1 max 125.8 cm/sec PA V2 max 104.8 cm/sec PA max PG 4.4 mmHg TR max yuridia 256.6 cm/sec
--- NOTE | 2017-01-20 18:08 | Progress Note ---
Medicine Progress Note Date & Time of Visit: January 20, 2017 at 17:54. Subjective Pt was seen and examined sitting in chair with no distress with in the room Pt said that his toothache improved he still having the sinus headache denies any chest pain, palpitation and sob Objective Last 8 Hrs Date Time Temp Pulse Resp B/P Pulse Ox O2 Delivery O2 Flow Rate FiO2 01/20/17 16:10 37.0 67 20 131/51 92 Room Air 01/20/17 16:10 83 93 01/20/17 16:00 Room Air 01/20/17 12:00 Room Air 01/20/17 11:39 36.8 65 16 140/61 91 Room Air Physical Exam: General- No acute distress Head- atraumatic Eyes- PERRL, EOMI ENT- oropharynx clear Neck- supple, no JVD Lungs- clear to auscultation, no wheezing Heart- regular rhythm; no murmur Abdomen- normal bowel sounds, soft Extremities-no calf tenderness Neuro- alert, oriented x 3; PERRL, EOMI; Skin- warm & dry Laboratory Results: Last 24 Hours Test 01/19/17 18:07 01/19/17 20:01 01/19/17 21:05 01/20/17 05:30 Bedside Glucose 110 mg/dl 170 mg/dl Troponin I 0.106 ng/ml Sodium Level 131 mmol/L Potassium Level 4.6 mmol/L Chloride Level 98 mmol/L Carbon Dioxide Level 25 mmol/L Anion Gap 8.0 mmol/L Blood Urea Nitrogen 12 mg/dl Creatinine 0.83 mg/dl Est Creatinine Clear Calc Drug Dose 86.5 ml/min Estimated GFR () 95.0 Estimated GFR (Non- 81.9 BUN/Creatinine Ratio 14.9 Random Glucose 135 mg/dl Calcium Level 8.9 mg/dl Test 01/20/17 06:29 01/20/17 11:33 01/20/17 16:06 Bedside Glucose 140 mg/dl 108 mg/dl 128 mg/dl Assessment & Plan HEADACHE CT head- no acute findings CT sinuses- chronic sinusitis No focal neuro deficits No sign of sepsis Pain control with PRN Toradol Mechanical soft diet to advance as tolerated DENTAL INFECTION symptoms improved continue Unasyn Pain control F/u with dentist after discharge MILDLY ABNORMAL TROPONIN Denies chest pain EKG shows chronic RBBB, LAFB, bifascicular block continue monitor in telemetry Cardiology on board Echo done * Left ventricular systolic function is normal. * Ejection Fraction = 60-65%. * There is mild concentric left ventricular hypertrophy. * Grade I diastolic dysfunction, (abnormal relaxation pattern). * Focal calcification of the anterior mitral valve leaflet. * Significant mitral regurgitation is absent. * There is no mitral valve stenosis. HYPERTENSION BP stable Continue lisinopril 40mg if BP increases, will add a low dose of HCTZ continue monitor BP MILD HYPONATREMIA Na is 131; no recent labs for comparison; was 134 in 2013 stable HYPERGLYCEMIA Hba1c 6 Advised pt to limit intake concentrated sugar DYSLIPIDEMIA Continue statin HYPOTHYROIDISM TSH is WNL Continue levothyroxine BIPOLAR DISORDER Stable, continue home medications CODE STATUS Full code per my discussion with the patient DVT PROPHYLAXIS Lovenox SQ DISPOSITION PT and OT Consultants: cardio Current Inpatient Medications: Current Inpatient Medications Medications (Trade) Dose Ordered Sig/Arjun Route Start Time Stop Time Status Last Admin Dose Admin Enoxaparin Sodium (Lovenox Inj) 40 mg Q24H SQ 01/19/17 21:00 02/18/17 20:59 01/19/17 20:27 40 MG Acetaminophen (Tylenol Tab) 650 mg Q4H PRN PO 01/19/17 12:15 02/18/17 12:14 01/20/17 07:37 650 MG Ondansetron HCl 4 mg 4 mg Q6H PRN IV 01/19/17 12:15 02/18/17 12:14 01/19/17 20:33 4 MG Ampicillin Sodium/ Sulbactam Sodium/ Sodium Chloride (Unasyn Inj/Nss 100ml) 104 ml @ 200 mls/hr Q6H IV 01/19/17 14:00 01/29/17 12:14 01/20/17 14:43 200 MLS/HR Aspirin (Ecotrin Tab) 81 mg QAM PO 01/20/17 08:00 02/19/17 07:59 01/20/17 07:33 81 MG Divalproex Sodium (Depakote Extended Rel Tab) 500 mg BID PO 01/19/17 20:00 02/18/17 20:59 01/20/17 07:33 500 MG Fluticasone Propionate (Flonase Nasal [place]) 2 sprays DAILY HEYDI 01/20/17 08:00 02/19/17 08:59 01/20/17 07:32 2 SPRAYS Latanoprost (Xalatan Oph Soln) 1 drops DAILY OPB 01/20/17 08:00 02/19/17 08:59 01/20/17 07:32 1 DROPS Levothyroxine Sodium (Synthroid Tab) 100 mcg DAILYBB PO 01/20/17 06:00 02/19/17 06:29 01/20/17 05:25 100 MCG Lisinopril (Zestril Tab) 40 mg DAILY PO 01/20/17 08:00 02/19/17 08:59 01/20/17 07:33 40 MG Multivitamins (Multivitamin Tab) 1 tab DAILY PO 01/20/17 08:00 02/19/17 08:59 01/20/17 07:32 1 TAB Olanzapine (Zyprexa Tab) 5 mg HS PO 01/19/17 21:00 02/18/17 20:59 01/19/17 20:27 5 MG Simvastatin (Zocor Tab) 20 mg HS PO 01/19/17 21:00 02/18/17 20:59 01/19/17 20:27 20 MG Polyethylene (Miralax Powder Packet) 17 gm QPM PRN PO 01/19/17 12:30 02/18/17 12:29 01/19/17 20:33 17 GM Psyllium Hydrophilic Mucilloid 1 pkt 1 pkt HS PO 01/19/17 21:00 02/18/17 20:59 01/19/17 21:07 1 PKT Sodium Chloride (Nss 1000ml) 1,000 ml @ 80 mls/hr [id number] IV 01/19/17 12:45 02/18/17 12:44 01/20/17 12:28 80 MLS/HR Miscellaneous (Iv Fluids Completed) 1 ea PRN PRN N/A 01/19/17 13:45 01/19/18 13:44 Morphine Sulfate (MoRPHine SULFATE INJ) 2 mg Q4H PRN IV 01/19/17 16:45 02/02/17 16:44 01/20/17 01:04 2 MG Clonidine HCl (Catapres Tab) 0.1 mg Q6 PRN PO 01/19/17 17:45 02/18/17 17:44 01/20/17 05:25 0.1 MG
[2017-01-20 20:00] VITALS: BP 157/90; PULSE 63; TEMP 36.7; O2SAT 93
[2017-01-20] MEDS: ENOXAPARIN 40 MG/0.4 ML SYR SQ SCH (20:41)
[2017-01-20] MEDS: PSYLLIUM 58.6% PWD PACK S\\F PO SCH (20:41)
[2017-01-20] MEDS: OLANZAPINE 5 MG TAB PO SCH (20:42)
[2017-01-20] MEDS: SIMVASTATIN 20 MG TAB PO SCH (20:42)
[2017-01-20 23:39] VITALS: BP 171/91; PULSE 103; TEMP 36.9; O2SAT 95
[2017-01-21] VITALS (10 sets, daily range): BP systolic 96–154; BP diastolic 60–81; PULSE 60–86; TEMP 36.5–36.9; O2SAT 90–94
[2017-01-21] MEDS: SODIUM CHLORIDE 0.9% 1000ML 1,000 ML IV SCH (01:43)
[2017-01-21] MEDS: AMPICILLIN/SULBACTAM SOD INJ 1,500 MG in SODIUM CHLORIDE 0.9% 100ML 100 ML IV SCH ×4 (01:43→19:27)
[2017-01-21] MEDS: MoRPHine SULFATE 2 MG/ML CARP IV PRN ×2 (03:42→14:43)
[2017-01-21] MEDS: LEVOTHYROXINE 100 MCG TAB PO SCH (05:51)
[2017-01-21 07:35] LABS: HEMATOCRIT 47.2 % (42-52); MEAN CELL VOLUME 94.8 fL (80-100); MEAN CORPUSCULAR HEMOGLOBIN 33.5 pg (25-34); MEAN CORPUSCULAR HGB CONC 35.4 g/dl (32-36); MEAN PLATELET VOLUME 9.6 fL (7.4-10.4); PLATELET COUNT 126 K/uL (130-400); RED BLOOD COUNT 4.98 M/uL (4.7-6.1); WHITE BLOOD COUNT 9.11 K/uL (4.8-10.8)
[2017-01-21 07:52] LABS: BUN/CREATININE RATIO 14.4 (10-20); CALCIUM 8.8 mg/dl (8.5-10.1); CREATININE 0.72 mg/dl (0.60-1.40); POTASSIUM 4.4 mmol/L (3.5-5.1)
[2017-01-21] MEDS: LATANOPROST 0.005% OP SOLN 2.5 ML BTL OPB SCH (09:08)
[2017-01-21] MEDS: FLUTICASONE PROPIONATE NA SPR 16 GM BTL NAE SCH (09:08)
[2017-01-21] MEDS: LISINOPRIL 40 MG TAB PO SCH (09:09)
[2017-01-21] MEDS: ASPIRIN 81 MG ECTAB PO SCH (09:09)
[2017-01-21] MEDS: DIVALPROEX 500 MG EXTENDED RELEASE TAB PO SCH ×2 (09:09→20:44)
[2017-01-21] MEDS: MULTIVITAMIN TAB PO SCH (09:09)
--- NOTE | 2017-01-21 19:28 | Progress Note ---
Medicine Progress Note Date & Time of Visit: January 21, 2017 at 18:18. Subjective Pt was seen and examined Sitting in chair with no distress Pt said that continue to tooth pain Morphine helps with the pain Denies any fever, palpitation and SOB Objective Last 8 Hrs Date Time Temp Pulse Resp B/P Pulse Ox O2 Delivery O2 Flow Rate FiO2 01/21/17 16:00 91 Room Air 01/21/17 15:04 36.5 75 20 96/60 92 01/21/17 14:23 68 90 01/21/17 12:00 91 Room Air 01/21/17 11:54 36.7 60 20 102/60 91 Physical Exam: General- No acute distress Head- atraumatic Eyes- PERRL, EOMI ENT- oropharynx clear, toothache (left side) Neck- supple, no JVD Lungs- No crackles, no wheezing Heart- regular rhythm; no murmur Abdomen- normal bowel sounds, soft Extremities-no calf tenderness Neuro- alert, oriented x 3; PERRL, EOMI; Skin- warm & dry Laboratory Results: Last 24 Hours Test 01/21/17 07:10 01/21/17 07:25 01/21/17 11:54 01/21/17 12:13 White Blood Count 9.11 K/uL Red Blood Count 4.98 M/uL Hemoglobin 16.7 g/dL Hematocrit 47.2 % Mean Corpuscular Volume 94.8 fL Mean Corpuscular Hemoglobin 33.5 pg Mean Corpuscular Hemoglobin Concent 35.4 g/dl RDW Standard Deviation 44.4 fL RDW Coefficient of Variation 12.9 % Platelet Count 126 K/uL Mean Platelet Volume 9.6 fL Sodium Level 133 mmol/L Potassium Level 4.4 mmol/L Chloride Level 100 mmol/L Carbon Dioxide Level 28 mmol/L Anion Gap 5.0 mmol/L Blood Urea Nitrogen 10 mg/dl Creatinine 0.72 mg/dl Est Creatinine Clear Calc Drug Dose 99.1 ml/min Estimated GFR () 100.7 Estimated GFR (Non- 86.9 BUN/Creatinine Ratio 14.4 Random Glucose 107 mg/dl Calcium Level 8.8 mg/dl Bedside Glucose 106 mg/dl 67 mg/dl 102 mg/dl Test 01/21/17 16:10 Bedside Glucose 97 mg/dl Assessment & Plan HEADACHE CT head- no acute findings CT sinuses- chronic sinusitis No focal neuro deficits No sign of sepsis Morphine help with the headache DENTAL INFECTION symptoms improved continue Unasyn Will change abx to po tomorrow will change morphine to PO narco Mechanical soft diet to advance as tolerated F/u with dentist after discharge MILDLY ABNORMAL TROPONIN Denies chest pain EKG shows chronic RBBB, LAFB, bifascicular block continue monitor in telemetry Cardiology on board Echo done * Left ventricular systolic function is normal. * Ejection Fraction = 60-65%. * There is mild concentric left ventricular hypertrophy. * Grade I diastolic dysfunction, (abnormal relaxation pattern). * Focal calcification of the anterior mitral valve leaflet. * Significant mitral regurgitation is absent. * There is no mitral valve stenosis. HYPERTENSION BP stable Continue lisinopril 40mg if BP increases, will add a low dose of HCTZ continue monitor BP Stable MILD HYPONATREMIA Na is 133 today; no recent labs for comparison; was 134 in 2013 stable UNSTEADY GAIT PT/OT eval will go to rehab for PT HYPERGLYCEMIA Hba1c 6 Advised pt to limit intake concentrated sugar DYSLIPIDEMIA Continue statin HYPOTHYROIDISM TSH is WNL Continue levothyroxine BIPOLAR DISORDER Stable, continue home medications CODE STATUS Full code per my discussion with the patient DVT PROPHYLAXIS Lovenox SQ DISPOSITION Will discharge tomorrow to rehab Consultants: cardio Current Inpatient Medications: Current Inpatient Medications Medications (Trade) Dose Ordered Sig/Arjun Route Start Time Stop Time Status Last Admin Dose Admin Enoxaparin Sodium (Lovenox Inj) 40 mg Q24H SQ 01/19/17 21:00 02/18/17 20:59 01/20/17 20:41 40 MG Acetaminophen (Tylenol Tab) 650 mg Q4H PRN PO 01/19/17 12:15 02/18/17 12:14 01/20/17 07:37 650 MG Ondansetron HCl 4 mg 4 mg Q6H PRN IV 01/19/17 12:15 02/18/17 12:14 01/19/17 20:33 4 MG Ampicillin Sodium/ Sulbactam Sodium/ Sodium Chloride (Unasyn Inj/Nss 100ml) 104 ml @ 200 mls/hr Q6H IV 01/19/17 14:00 01/29/17 12:14 01/21/17 13:48 200 MLS/HR Aspirin (Ecotrin Tab) 81 mg QAM PO 01/20/17 08:00 02/19/17 07:59 01/21/17 09:09 81 MG Divalproex Sodium (Depakote Extended Rel Tab) 500 mg BID PO 01/19/17 20:00 02/18/17 20:59 01/21/17 09:09 500 MG Fluticasone Propionate (Flonase Nasal [place]) 2 sprays DAILY HEYDI 01/20/17 08:00 02/19/17 08:59 01/21/17 09:08 2 SPRAYS Latanoprost (Xalatan Oph Soln) 1 drops DAILY OPB 01/20/17 08:00 02/19/17 08:59 01/21/17 09:08 1 DROPS Levothyroxine Sodium (Synthroid Tab) 100 mcg DAILYBB PO 01/20/17 06:00 02/19/17 06:29 01/21/17 05:51 100 MCG Lisinopril (Zestril Tab) 40 mg DAILY PO 01/20/17 08:00 02/19/17 08:59 01/21/17 09:09 40 MG Multivitamins (Multivitamin Tab) 1 tab DAILY PO 01/20/17 08:00 02/19/17 08:59 01/21/17 09:09 1 TAB Olanzapine (Zyprexa Tab) 5 mg HS PO 01/19/17 21:00 02/18/17 20:59 01/20/17 20:42 5 MG Simvastatin (Zocor Tab) 20 mg HS PO 01/19/17 21:00 02/18/17 20:59 01/20/17 20:42 20 MG Polyethylene (Miralax Powder Packet) 17 gm QPM PRN PO 01/19/17 12:30 02/18/17 12:29 01/19/17 20:33 17 GM Psyllium Hydrophilic Mucilloid (Metamucil Powder) 1 pkt HS PO 01/19/17 21:00 02/18/17 20:59 01/20/17 20:41 1 PKT Miscellaneous (Iv Fluids Completed) 1 ea PRN PRN N/A 01/19/17 13:45 01/19/18 13:44 Morphine Sulfate (MoRPHine SULFATE INJ) 2 mg Q4H PRN IV 01/19/17 16:45 02/02/17 16:44 01/21/17 14:43 2 MG Clonidine HCl (Catapres Tab) 0.1 mg Q6 PRN PO 01/19/17 17:45 02/18/17 17:44 01/20/17 23:41 0.1 MG
[2017-01-21] MEDS: OLANZAPINE 5 MG TAB PO SCH (20:44)
[2017-01-21] MEDS: ENOXAPARIN 40 MG/0.4 ML SYR SQ SCH (20:44)
[2017-01-21] MEDS: SIMVASTATIN 20 MG TAB PO SCH (20:44)
[2017-01-21] MEDS: PSYLLIUM 58.6% PWD PACK S\\F PO SCH (20:45)
[2017-01-21] MEDS: HYDROCODONE/ACETAMOPHEN 5/325MG TAB PO PRN (20:46)
[2017-01-22] VITALS (9 sets, daily range): BP systolic 113–166; BP diastolic 68–85; PULSE 64–87; TEMP 36.5–36.9; O2SAT 90–95
[2017-01-22] MEDS: ACETAMINOPHEN 325 MG TAB PO PRN (00:19)
[2017-01-22] MEDS: AMPICILLIN/SULBACTAM SOD INJ 1,500 MG in SODIUM CHLORIDE 0.9% 100ML 100 ML IV SCH ×4 (01:15→19:27)
[2017-01-22] MEDS: HYDROCODONE/ACETAMOPHEN 5/325MG TAB PO PRN ×2 (03:24→20:28)
[2017-01-22] MEDS: LEVOTHYROXINE 100 MCG TAB PO SCH (05:47)
[2017-01-22 07:41] LABS: HEMATOCRIT 51.8 % (42-52); MEAN CELL VOLUME 96.1 fL (80-100); MEAN CORPUSCULAR HEMOGLOBIN 33.8 pg (25-34); MEAN CORPUSCULAR HGB CONC 35.1 g/dl (32-36); MEAN PLATELET VOLUME 10.1 fL (7.4-10.4); PLATELET COUNT 136 K/uL (130-400); RED BLOOD COUNT 5.39 M/uL (4.7-6.1); WHITE BLOOD COUNT 7.75 K/uL (4.8-10.8)
[2017-01-22] MEDS: LATANOPROST 0.005% OP SOLN 2.5 ML BTL OPB SCH (07:46)
[2017-01-22] MEDS: LISINOPRIL 40 MG TAB PO SCH (07:47)
[2017-01-22] MEDS: DIVALPROEX 500 MG EXTENDED RELEASE TAB PO SCH ×2 (07:47→20:20)
[2017-01-22] MEDS: ASPIRIN 81 MG ECTAB PO SCH (07:47)
[2017-01-22] MEDS: MULTIVITAMIN TAB PO SCH (07:47)
[2017-01-22] MEDS: FLUTICASONE PROPIONATE NA SPR 16 GM BTL NAE SCH (07:47)
[2017-01-22 08:07] LABS: BUN/CREATININE RATIO 14.8 (10-20); CREATININE 0.8 mg/dl (0.60-1.40)
[2017-01-22 08:30] LABS: CALCIUM 10.2 mg/dl (8.5-10.1)
--- NOTE | 2017-01-22 15:43 | Progress Note ---
Medicine Progress Note Date & Time of Visit: January 22, 2017 at 15:22. Subjective Pt was seen and examined Lying in bed with no distress Pt said that he continue to have tenderness below the right TMJ area He said that the pain med help with it denies any chest pain, palpitation, dizziness and SOB Objective Last 8 Hrs Date Time Temp Pulse Resp B/P Pulse Ox O2 Delivery O2 Flow Rate FiO2 01/22/17 15:00 36.9 70 20 113/71 90 01/22/17 12:00 95 Room Air 01/22/17 11:29 36.5 77 20 123/68 92 01/22/17 08:00 95 Room Air 01/22/17 07:33 36.6 75 20 134/83 95 Room Air Physical Exam: General- No acute distress Head- atraumatic Eyes- PERRL, EOMI ENT- oropharynx clear, toothache (left side) Neck- supple, no JVD Lungs- No crackles, no wheezing Heart- regular rhythm; no murmur Abdomen- normal bowel sounds, soft Extremities-no calf tenderness Neuro- alert, oriented x 3; PERRL, EOMI; Skin- warm & dry Laboratory Results: Last 24 Hours Test 01/21/17 16:10 01/21/17 20:28 01/22/17 07:19 01/22/17 07:24 Bedside Glucose 97 mg/dl 109 mg/dl 85 mg/dl White Blood Count 7.75 K/uL Red Blood Count 5.39 M/uL Hemoglobin 18.2 g/dL Hematocrit 51.8 % Mean Corpuscular Volume 96.1 fL Mean Corpuscular Hemoglobin 33.8 pg Mean Corpuscular Hemoglobin Concent 35.1 g/dl RDW Standard Deviation 45.8 fL RDW Coefficient of Variation 13.1 % Platelet Count 136 K/uL Mean Platelet Volume 10.1 fL Sodium Level 139 mmol/L Potassium Level 4.0 mmol/L Chloride Level 102 mmol/L Carbon Dioxide Level 32 mmol/L Anion Gap 5.0 mmol/L Blood Urea Nitrogen 12 mg/dl Creatinine 0.80 mg/dl Est Creatinine Clear Calc Drug Dose 88.7 ml/min Estimated GFR () 96.4 Estimated GFR (Non- 83.2 BUN/Creatinine Ratio 14.8 Random Glucose 89 mg/dl Calcium Level 10.2 mg/dl Test 01/22/17 11:21 Bedside Glucose 96 mg/dl Assessment & Plan HEADACHE CT head- no acute findings CT sinuses- chronic sinusitis No focal neuro deficits Improved DENTAL INFECTION symptoms improved Received IV Unasyn Will change abx to amoxicillin 500mg Continue hydrocodone prn Mechanical soft diet to advance as tolerated F/u with Dr. Milton as an outpatient MILDLY ABNORMAL TROPONIN Denies chest pain EKG shows chronic RBBB, LAFB, bifascicular block case discussed with cardiology Stable Cardiology on board Echo done * Left ventricular systolic function is normal. * Ejection Fraction = 60-65%. * There is mild concentric left ventricular hypertrophy. * Grade I diastolic dysfunction, (abnormal relaxation pattern). * Focal calcification of the anterior mitral valve leaflet. * Significant mitral regurgitation is absent. * There is no mitral valve stenosis. HYPERTENSION BP stable Continue lisinopril 40mg if BP increases, will add a low dose of HCTZ continue monitor BP Stable MILD HYPONATREMIA Na is 139 today stable UNSTEADY GAIT PT/OT eval will go to rehab for PT HYPERGLYCEMIA Hba1c 6 Advised pt to limit intake concentrated sugar DYSLIPIDEMIA Continue statin HYPOTHYROIDISM TSH is WNL Continue levothyroxine BIPOLAR DISORDER Stable, continue home medications CODE STATUS Full code per my discussion with the patient DVT PROPHYLAXIS Lovenox SQ DISPOSITION Will discharge today to rehab Follow up with primary care physician once discharge to rehab Will need to schedule an appointment to see the dentist Dr. Milton [employer] manager will try to arrange for transport to [facility] Case discussed with Pt's and she was updated on pt care Consultants: cardio Current Inpatient Medications: Current Inpatient Medications Medications (Trade) Dose Ordered Sig/Arjun Route Start Time Stop Time Status Last Admin Dose Admin Enoxaparin Sodium (Lovenox Inj) 40 mg Q24H SQ 01/19/17 21:00 02/18/17 20:59 01/21/17 20:44 40 MG Acetaminophen (Tylenol Tab) 650 mg Q4H PRN PO 01/19/17 12:15 02/18/17 12:14 01/22/17 00:19 650 MG Ondansetron HCl 4 mg 4 mg Q6H PRN IV 01/19/17 12:15 02/18/17 12:14 01/19/17 20:33 4 MG Ampicillin Sodium/ Sulbactam Sodium/ Sodium Chloride (Unasyn Inj/Nss 100ml) 104 ml @ 200 mls/hr Q6H IV 01/19/17 14:00 01/29/17 12:14 01/22/17 14:34 200 MLS/HR Aspirin (Ecotrin Tab) 81 mg QAM PO 01/20/17 08:00 02/19/17 07:59 01/22/17 07:47 81 MG Divalproex Sodium (Depakote Extended Rel Tab) 500 mg BID PO 01/19/17 20:00 02/18/17 20:59 01/22/17 07:47 500 MG Fluticasone Propionate (Flonase Nasal [place]) 2 sprays DAILY HEYDI 01/20/17 08:00 02/19/17 08:59 01/22/17 07:47 2 SPRAYS Latanoprost (Xalatan Oph Soln) 1 drops DAILY OPB 01/20/17 08:00 02/19/17 08:59 01/22/17 07:46 1 DROPS Levothyroxine Sodium (Synthroid Tab) 100 mcg DAILYBB PO 01/20/17 06:00 02/19/17 06:29 01/22/17 05:47 100 MCG Lisinopril (Zestril Tab) 40 mg DAILY PO 01/20/17 08:00 02/19/17 08:59 01/22/17 07:47 40 MG Multivitamins (Multivitamin Tab) 1 tab DAILY PO 01/20/17 08:00 02/19/17 08:59 01/22/17 07:47 1 TAB Olanzapine (Zyprexa Tab) 5 mg HS PO 01/19/17 21:00 02/18/17 20:59 01/21/17 20:44 5 MG Simvastatin (Zocor Tab) 20 mg HS PO 01/19/17 21:00 02/18/17 20:59 01/21/17 20:44 20 MG Polyethylene (Miralax Powder Packet) 17 gm QPM PRN PO 01/19/17 12:30 02/18/17 12:29 01/19/17 20:33 17 GM Psyllium Hydrophilic Mucilloid (Metamucil Powder) 1 pkt HS PO 01/19/17 21:00 02/18/17 20:59 01/21/17 20:45 1 PKT Miscellaneous (Iv Fluids Completed) 1 ea PRN PRN N/A 01/19/17 13:45 01/19/18 13:44 Clonidine HCl (Catapres Tab) 0.1 mg Q6 PRN PO 01/19/17 17:45 02/18/17 17:44 01/20/17 23:41 0.1 MG Acetaminophen/ Hydrocodone Bitart ([place] 5/325 Tab) 1 tab Q6 PRN PO 01/21/17 19:30 02/04/17 19:29 01/22/17 03:24 1 TAB
[2017-01-22] MEDS ORDERED: AMX500 PO (15:54)
[2017-01-22] MEDS ORDERED: HYDR-5688 PO (15:54)
[2017-01-22] MEDS: SIMVASTATIN 20 MG TAB PO SCH (20:20)
[2017-01-22] MEDS: OLANZAPINE 5 MG TAB PO SCH (20:20)
[2017-01-22] MEDS: PSYLLIUM 58.6% PWD PACK S\\F PO SCH (20:20)
[2017-01-22] MEDS: ENOXAPARIN 40 MG/0.4 ML SYR SQ SCH (20:21)
[2017-01-23] MEDS: AMPICILLIN/SULBACTAM SOD INJ 1,500 MG in SODIUM CHLORIDE 0.9% 100ML 100 ML IV SCH ×2 (01:24→08:40)
[2017-01-23] MEDS: HYDROCODONE/ACETAMOPHEN 5/325MG TAB PO PRN (01:27)
[2017-01-23 02:56] VITALS: BP 150/71; PULSE 75; TEMP 36.9; O2SAT 91
[2017-01-23] MEDS: LEVOTHYROXINE 100 MCG TAB PO SCH (05:46)
[2017-01-23 07:32] VITALS: BP 162/83; PULSE 63; TEMP 36.5; O2SAT 93
[2017-01-23 08:00] VITALS: O2SAT 93
[2017-01-23] MEDS: DIVALPROEX 500 MG EXTENDED RELEASE TAB PO SCH (08:41)
[2017-01-23] MEDS: MULTIVITAMIN TAB PO SCH (08:41)
[2017-01-23] MEDS: LISINOPRIL 40 MG TAB PO SCH (08:41)
[2017-01-23] MEDS: FLUTICASONE PROPIONATE NA SPR 16 GM BTL NAE SCH (08:41)
[2017-01-23] MEDS: ASPIRIN 81 MG ECTAB PO SCH (08:41)
[2017-01-23] MEDS: LATANOPROST 0.005% OP SOLN 2.5 ML BTL OPB SCH (08:41)
--- NOTE | 2017-01-23 11:14 | Discharge Instructions ---
Discharge Instructions Date of Service January 22, 2017. Admission Reason for Admission: Headache, Stroke Symptoms Discharge Discharge Diagnosis / Problem: Headache, Elevated troponin, Dental infection, Unsteady gait Discharge Goals Goal(s): Decrease discomfort, Improve function, Improve disease control Activity Recommendations Activity Limitations: resume your previous activity (as tolerated) . Instructions / Follow-Up Instructions / Follow-Up Please schedule follow up appointment with your physician once discharge from rehab Please schedule an appointment to see the dentist Dr. Milton Complete the antibiotic course Fall precaution Continue PT/OT Current Hospital Diet Patient's current hospital diet: AHA Diet (Heart Healthy) Discharge Diet Recommended Diet: AHA Diet (Heart Healthy) Pending Studies Studies pending at discharge: no Laboratory Results Hemoglobin A1c Test 01/19/17 09:40 Range/Units Estimated Average Glucose 126 mg/dl Hemoglobin A1c 6.0 H 4.5-5.6 % Medical Emergencies . Who to Call and When: Medical Emergencies: If at any time you feel your situation is an emergency, please call 911 immediately. . Non-Emergent Contact Non-Emergency issues call your: Primary Care Provider Call Non-Emergent contact if: you have a fever, your pain is worsening, you have any medication questions . . "Provider Documentation" section prepared by Pratibha Brown. . VTE Core Measure Inpt VTE Proph given/why not?: Enoxaparin (Lovenox) [place] Drug Monitoring Program Search Results: patient reviewed within database
[2017-01-23] MEDS ORDERED: HYDR-5688 PO (11:16)
[2017-01-23 11:18] VITALS: BP 162/83; PULSE 63; TEMP 36.5; O2SAT 93
[2017-01-23] MEDS ORDERED: AMOX875T PO (11:25)
--- NOTE | 2017-01-23 11:40 | Progress Note ---
Medicine Progress Note Date & Time of Visit: January 23, 2017 at 11:33. Subjective Pt was seen and examined Sitting in bed comfortable with no distress eating his breakfast Pt said that he feels much better today He said that the dental pain is improved significantly denies any fever, palpitation, dizziness and SOB Objective Last 8 Hrs Date Time Temp Pulse Resp B/P Pulse Ox O2 Delivery O2 Flow Rate FiO2 01/23/17 11:18 36.5 63 16 93 Room Air 01/23/17 08:00 93 Room Air 01/23/17 07:32 36.5 63 16 162/83 93 01/23/17 04:12 Room Air Physical Exam: General- No acute distress Head- atraumatic Eyes- PERRL, EOMI ENT- oropharynx clear, toothache improved (left side) Neck- supple, no JVD Lungs- No crackles, no wheezing Heart- regular rhythm; no murmur Abdomen- normal bowel sounds, soft Extremities-no calf tenderness Neuro- alert, oriented x 3; PERRL, EOMI; Skin- warm & dry Laboratory Results: Last 24 Hours Test 01/22/17 16:10 01/22/17 20:34 01/23/17 07:50 Bedside Glucose 84 mg/dl 96 mg/dl 89 mg/dl Assessment & Plan HEADACHE CT head- no acute findings CT sinuses- chronic sinusitis No focal neuro deficits Improved DENTAL INFECTION symptoms improved Received IV Unasyn Will discharge on Augmentin 875mg BID for 5 days Continue hydrocodone prn Mechanical soft diet to advance as tolerated F/u with Dr. Milton as an outpatient MILDLY ABNORMAL TROPONIN Denies chest pain EKG shows chronic RBBB, LAFB, bifascicular block case discussed with cardiology Stable Cardiology on board Echo done * Left ventricular systolic function is normal. * Ejection Fraction = 60-65%. * There is mild concentric left ventricular hypertrophy. * Grade I diastolic dysfunction, (abnormal relaxation pattern). * Focal calcification of the anterior mitral valve leaflet. * Significant mitral regurgitation is absent. * There is no mitral valve stenosis. HYPERTENSION BP stable Continue lisinopril 40mg if BP increases, will add a low dose of HCTZ continue monitor BP Stable MILD HYPONATREMIA Na is 139 today stable UNSTEADY GAIT PT/OT eval will go to rehab for PT HYPERGLYCEMIA Hba1c 6 Advised pt to limit intake concentrated sugar DYSLIPIDEMIA Continue statin HYPOTHYROIDISM TSH is WNL Continue levothyroxine BIPOLAR DISORDER Stable, continue home medications CODE STATUS Full code per my discussion with the patient DVT PROPHYLAXIS Lovenox SQ DISPOSITION Will discharge today to rehab Follow up with primary care physician once discharge to rehab Will need to schedule an appointment to see the dentist Dr. Milton Consultants: cardio Current Inpatient Medications: Current Inpatient Medications Medications (Trade) Dose Ordered Sig/Arjun Route Start Time Stop Time Status Last Admin Dose Admin Enoxaparin Sodium (Lovenox Inj) 40 mg Q24H SQ 01/19/17 21:00 02/18/17 20:59 01/22/17 20:21 40 MG Acetaminophen (Tylenol Tab) 650 mg Q4H PRN PO 01/19/17 12:15 02/18/17 12:14 01/22/17 00:19 650 MG Ondansetron HCl 4 mg 4 mg Q6H PRN IV 01/19/17 12:15 02/18/17 12:14 01/19/17 20:33 4 MG Ampicillin Sodium/ Sulbactam Sodium/ Sodium Chloride (Unasyn Inj/Nss 100ml) 104 ml @ 200 mls/hr Q6H IV 01/19/17 14:00 01/29/17 12:14 01/23/17 08:40 200 MLS/HR Aspirin (Ecotrin Tab) 81 mg QAM PO 01/20/17 08:00 02/19/17 07:59 01/23/17 08:41 81 MG Divalproex Sodium (Depakote Extended Rel Tab) 500 mg BID PO 01/19/17 20:00 02/18/17 20:59 01/23/17 08:41 500 MG Fluticasone Propionate (Flonase Nasal [place]) 2 sprays DAILY HEYDI 01/20/17 08:00 02/19/17 08:59 01/23/17 08:41 2 SPRAYS Latanoprost (Xalatan Oph Soln) 1 drops DAILY OPB 01/20/17 08:00 02/19/17 08:59 01/23/17 08:41 1 DROPS Levothyroxine Sodium (Synthroid Tab) 100 mcg DAILYBB PO 01/20/17 06:00 02/19/17 06:29 01/23/17 05:46 100 MCG Lisinopril (Zestril Tab) 40 mg DAILY PO 01/20/17 08:00 02/19/17 08:59 01/23/17 08:41 40 MG Multivitamins (Multivitamin Tab) 1 tab DAILY PO 01/20/17 08:00 02/19/17 08:59 01/23/17 08:41 1 TAB Olanzapine (Zyprexa Tab) 5 mg HS PO 01/19/17 21:00 02/18/17 20:59 01/22/17 20:20 5 MG Simvastatin (Zocor Tab) 20 mg HS PO 01/19/17 21:00 02/18/17 20:59 01/22/17 20:20 20 MG Polyethylene (Miralax Powder Packet) 17 gm QPM PRN PO 01/19/17 12:30 02/18/17 12:29 01/19/17 20:33 17 GM Psyllium Hydrophilic Mucilloid (Metamucil Powder) 1 pkt HS PO 01/19/17 21:00 02/18/17 20:59 01/22/17 20:20 1 PKT Miscellaneous (Iv Fluids Completed) 1 ea PRN PRN N/A 01/19/17 13:45 01/19/18 13:44 Clonidine HCl (Catapres Tab) 0.1 mg Q6 PRN PO 01/19/17 17:45 02/18/17 17:44 01/20/17 23:41 0.1 MG Acetaminophen/ Hydrocodone Bitart ([place] 5/325 Tab) 1 tab Q6 PRN PO 01/21/17 19:30 02/04/17 19:29 01/23/17 01:27 1 TAB
[2017-01-23 12:45] VITALS: BP 135/76; PULSE 69; TEMP 36.4; O2SAT 94
--- NOTE | 2017-01-23 23:32 | Discharge Summary ---
Discharge Summary Date of Service January 23, 2017. Discharge Summary Admission Date: January 20, 2017 at 17:54 Discharge Date: January 23, 2017 Discharge Disposition: Rehab Principal Diagnosis: Dental Infection Secondary Diagnoses/Problems: Headache Elevated troponin Dental infection Unsteady gait Hyponatremia Hyperglycemia Hypertension Dyslipidemia Bipolar disorder Hypothyroidism Procedures: SINUS CT CT DOSE: HISTORY: Headache. eval for sinusitis TECHNIQUE: Multiaxial CT images of the paranasal sinuses were performed and reformatted in the coronal plane without the use of contrast. COMPARISON: Head CT 04/23/2007. FINDINGS: Mild mucosal thickening within the right frontal sinus and ethmoid air cells. The sphenoid sinuses, maxillary sinuses, and mastoid air cells are clear. There is S-shaped deviation of the nasal septum. No fluid levels within the paranasal sinuses. The bilateral ostiomeatal units are patent. The orbits are unremarkable. IMPRESSION: Mild chronic sinus disease as described above. No fluid levels within the paranasal sinuses. Electronically signed by: Erik Juares M.D. 01/19/2017 10:[address]AST CT DOSE: 1285.03 mGy.cm HISTORY: Headache. TECHNIQUE: Multiaxial CT images of the head were performed without the use of intravenous contrast. Automated exposure control was utilized for this study. Comparison: Head CT 04/23/2007. Findings: Mild motion artifact. The calvarium and skull base are intact. There is no mass, hematoma, midline shift, acute infarct. White matter hypodensity is nonspecific but suggestive of microvascular ischemic change. The ventricles and sulci demonstrate mild age-related involutional changes. Impression: No acute intracranial abnormality. Atrophy and microvascular ischemic changes. Electronically signed by: Erik Juares M.D. 01/19/2017 10:25 AM Dictated Date/Time: 01/19/2017 10:21 AM CHEST ONE VIEW PORTABLE CLINICAL HISTORY: Shortness of breath. COMPARISON STUDY: Chest radiograph July 30, 2014. FINDINGS: The patient is rotated. There is no pneumothorax. Hazy left basilar opacity is again noted. There are old left rib fractures. Mild cardiomegaly is noted without evidence of pulmonary edema. IMPRESSION: 1. Mild left basilar opacity which is likely chronic. Pneumonia would be difficult to exclude but is considered less likely. 2. Mild right lower lung opacity which favors atelectasis. Electronically signed by: Deng Ayala M.D. 01/19/2017 11:32 AM Dictated Date/Time: 01/19/2017 11:30 AM ECHO Interpretation Summary * Name: TAI COHEN Study Date: 01/20/2017 09:19 AM BP: 144/86 mmHg * Patient Location: [id number]\\[id number]\\E204\\S\\1 HR: 73 * : 1935 (M/d/yyyy) Gender: Male Height: 73 in * Age: 81 yrs Ethnicity: [place] Weight: 227 lb * Ordering Physician: Kendy Arreaga * Referring Physician: Self, Referred * Performed By: Josefa Banuelos RCS * * Reason For Study: ELEVATED TROPONIN / STROKE SYMPTIONS / HEADACHE * BSA: 2.3 m2 * The study was technically adequate. * There is no comparison study available. * -- Conclusions -- * Left ventricular systolic function is normal. * Ejection Fraction = 60-65%. * There is mild concentric left ventricular hypertrophy. * Grade I diastolic dysfunction, (abnormal relaxation pattern). * Focal calcification of the anterior mitral valve leaflet. * Significant mitral regurgitation is absent. * There is no mitral valve stenosis. Procedure Details * A complete two-dimensional transthoracic echocardiogram was performed (2D, M- mode, Doppler and color flow Doppler). * The study was technically difficult. * There were technical limitations due to patient'spoor positioning * A saline contrast injection was performed to assess for cardiac shunting. * The injection was performed through an intravenous line in the right arm. * The attending nurse who injected the saline contrast was MENDY WALKER RN. * A total of 10 cc of agitated saline was given. * A contrast injection of Definity was performed to improve assessment of LV function. * Contrast was injected into an intravenous site in the right arm. * One vial of Definity ultrasound contrast was diluted in normal saline to a total volume of 10 ml. A total of '2' ml of solution was administered during imaging. * Lot # [id number] of Definity utilized for procedure. * Expiration date DEC 28. Left Ventricle * The left ventricle is normal in size. * There is no thrombus. * There is mild concentric left ventricular hypertrophy. * The basal septum is thickened and angulated consistent with sigmoid septum. * Ejection Fraction = 60-65%. * Left ventricular systolic function is normal. * The left ventricular wall motion is normal. Right Ventricle * The right ventricle is normal size. * The right ventricular systolic function is normal as assessed by tricuspid annular plane systolic excursion (TAPSE) (normal >1.5 cm). Atria * The left atrial size is normal. * Right atrial size is normal. * There is no evidence of atrial septal defect, but resolution does not allow assessment for a patent foramen ovale. Mitral Valve * The mitral valve is normal. * Focal calcification of the anterior mitral valve leaflet. * There is no mitral valve stenosis. * Significant mitral regurgitation is absent. Tricuspid Valve * The tricuspid valve is normal. * There is no tricuspid stenosis. * There is trace tricuspid regurgitation. Aortic Valve * The aortic valve is trileaflet. * Aortic stenosis is absent. * There is no significant aortic regurgitation. Pulmonic Valve * The pulmonary valve is not well seen, but the Doppler examination is normal without significant regurgitation or stenosis. Great Vessels * The aortic root is normal size. Pericardium/Pleural * There is no pericardial effusion. Great Vessels * Normal inferior vena cava diameter and respiratory variation suggests normal central venous pressure. Left Ventricular Diastolic Function * Grade I diastolic dysfunction, (abnormal relaxation pattern). Consultations: cardio Medication Reconciliation New Medications: Hydrocodone/Acetaminophen 5MG/325MG ([place] 5MG/325MG) Tab 1 TAB PO Q12 PRN for moderate to severe pain for 4 Days, #8 TAB PRN PAIN. Please hold for drowsiness Changed Medications: Amoxicillin & Pot Clavulanate (Augmentin 875-125 mg) 1 Tab Tab 1 TAB PO BID for 5 Days, #10 TAB (Changed from: Amoxicillin 500 Mg Cap 1 Tab PO TID 5 Days #15 ) Continued Medications: Aspirin (Aspirin Chewable) 81 Mg Chew 81 MG PO DAILY, TAB Divalproex Sodium (Depakote Er) 500 Mg Tab 1 TAB PO BID for 30 Days, #60 TAB 2 Refills Fluticasone Propionate (Nasal) (Flonase Allergy Relief) 50 Mcg/Act Spr 2 SPRAYS HEYDI DAILY Latanoprost (Xalatan 0.005% Oph Nel) 0.005 % Nel 1 DROPS OPB DAILY for 90 Days, #7.5 ML 3 Refills Levothyroxine Sodium (Levothyroxine Sodium) 100 Mcg Tab 1 TAB PO DAILY for 90 Days, #90 TAB 3 Refills Lisinopril (Zestril) 40 Mg Tab 40 MG PO DAILY Take 40 mg by mouth daily at noon. Multivitamin (Multivitamin) Tab 1 TAB PO DAILY Olanzapine (Zyprexa) 5 Mg Tab 5 MG PO HS Polyethylene Glycol 3350 (Miralax) 1 Pow Pow 17 GM PO QPM PRN for Constipation DISSOLVE 1 HEAPING TABLESPOON IN 8 OUNCES OF WATER OR JUICE - ONE DOSE PER DAY NEEDED FOR SEVERE CONSTIPATION Psyllium (Metamucil Smooth Texture) 58.6 % Pow 1 DOSE PO HS TAKE 1 SCOOP MIXED IN 8 OUNCES OF WATER Simvastatin (Zocor) 20 Mg Tab 20 MG PO HS, 0 Refills Admission Information HPI (per Admitting provider): This is an 81 year old male with PMH of HTN, HL, chronic bifascicular block, hypothyroidism, bipolar disorder, and other problems listed below who presents to the ED for headache. Patient states 2-3 days ago he started having tooth pain in left lower molar where he had a prior root canal. Pain was exacerbated with chewing so PO intake has been limited to liquids. Then yesterday afternoon he developed headache described as severe sinus pressure in the left temporal and left maxillary regions. He states Tylenol initially helped but overnight Tylenol was no longer controlling the pain and he was unable to sleep. He rates headache 8/10 despite 2 mg IV morphine given 30 minutes prior to exam. Overnight patient was subjectively warm and cold, "on edge", and shaky. Pt reports "not much" SOB, only that he cannot catch his breath at times due to pain. Patient admits to pollen allergy and states over past 1 week has rhinorrhea, postnasal drip, increased throat clearing. He states urine was more frequent than usual overnight but denies dysuria. Pt has been generally weak and tired. states patient has chronic shuffling gait and ambulates unassisted. Patient denies vision change, itchy watery eyes, focal weakness or numbness, sore throat, ear ache, change in chronic left ear hearing loss, cough , chest pain, abdominal pain, nausea, vomiting, diarrhea, edema, abnormal bleeding. Physical Exam (per Admitting): General Appearance: WD/WN, + pertinent finding (alert cooperative 81 year old male, lying in bed, appears mildly uncomfortable due to headache, at bedside) Head: normocephalic, atraumatic Eyes: normal inspection, PERRL, EOMI ENT: TMs normal, pharynx normal, + pertinent finding (chronic decreased hearing on the left. no nasal drainage. +left maxillary sinus tenderness. + left posterior mandibular molar tender with mild periodontal inflammation. no fluctuant area. ) Neck: supple, trachea midline Respiratory/Chest: lungs clear, normal breath sounds, no respiratory distress, no accessory muscle use Cardiovascular: regular rate, rhythm, no murmur Abdomen/GI: normal bowel sounds, non tender, soft Extremities/Musculoskelatal: no calf tenderness, no pedal edema Neurologic/Psych: alert, normal mood/affect, oriented x 3, + pertinent finding (mild tremor of upper extremities. strength 5/5 all extremities) Skin: normal color, warm/dry Hospital Course HEADACHE CT head- no acute findings CT sinuses- chronic sinusitis No focal neuro deficits Improved DENTAL INFECTION symptoms improved Received IV Unasyn Will discharge on Augmentin 875mg BID for 5 days Continue hydrocodone prn Mechanical soft diet to advance as tolerated F/u with Dr. Milton as an outpatient MILDLY ABNORMAL TROPONIN Denies chest pain EKG shows chronic RBBB, LAFB, bifascicular block case discussed with cardiology Stable Cardiology on board Echo done * Left ventricular systolic function is normal. * Ejection Fraction = 60-65%. * There is mild concentric left ventricular hypertrophy. * Grade I diastolic dysfunction, (abnormal relaxation pattern). * Focal calcification of the anterior mitral valve leaflet. * Significant mitral regurgitation is absent. * There is no mitral valve stenosis. HYPERTENSION BP stable Continue lisinopril 40mg if BP increases, will add a low dose of HCTZ continue monitor BP Stable MILD HYPONATREMIA Na is 139 today stable UNSTEADY GAIT PT/OT eval will go to rehab for PT HYPERGLYCEMIA Hba1c 6 Advised pt to limit intake concentrated sugar DYSLIPIDEMIA Continue statin HYPOTHYROIDISM TSH is WNL Continue levothyroxine BIPOLAR DISORDER Stable, continue home medications CODE STATUS Full code per my discussion with the patient DVT PROPHYLAXIS Lovenox SQ DISPOSITION Will discharge today to rehab Follow up with primary care physician once discharge to rehab Will need to schedule an appointment to see the dentist Dr. Milton Case discussed with pt's over phone to update her about pt care Total time spent on discharge = 35 minutes This includes examination of the patient, discharge planning, medication reconciliation, and communication with other providers. Discharge Instructions DI: Medical v4 Discharge Instructions Date of Service January 22, 2017. Admission Reason for Admission: Headache, Stroke Symptoms Discharge Discharge Diagnosis / Problem: Headache, Elevated troponin, Dental infection, Unsteady gait Discharge Goals Goal(s): Decrease discomfort, Improve function, Improve disease control Activity Recommendations Activity Limitations: resume your previous activity (as tolerated) . Instructions / Follow-Up Instructions / Follow-Up Please schedule follow up appointment with your physician once discharge from rehab Please schedule an appointment to see the dentist Dr. Milton Complete the antibiotic course Fall precaution Continue PT/OT Current Hospital Diet Patient's current hospital diet: AHA Diet (Heart Healthy) Discharge Diet Recommended Diet: AHA Diet (Heart Healthy) Pending Studies Studies pending at discharge: no Laboratory Results Hemoglobin A1c Test 01/19/17 09:40 Range/Units Estimated Average Glucose 126 mg/dl Hemoglobin A1c 6.0 H 4.5-5.6 % Medical Emergencies . Who to Call and When: Medical Emergencies: If at any time you feel your situation is an emergency, please call 911 immediately. . Non-Emergent Contact Non-Emergency issues call your: Primary Care Provider Call Non-Emergent contact if: you have a fever, your pain is worsening, you have any medication questions . . "Provider Documentation" section prepared by Pratibha Brown. . VTE Core Measure Inpt VTE Proph given/why not?: Enoxaparin (Lovenox) [place] Drug Monitoring Program Search Results: patient reviewed within database Additional Copies To Delfina Dacosta
--- NOTE | 2017-01-31 07:29 | Medical Consult ---
Consultation Note Date of Service January 31, 2017. Consultation Note I received a notification to provide a consult. To my knowledge I was never consulted. I did however learn from Mr. Ferreira's that he was admitted, had a toothache, and on the Tuesday morning that she called me, he was being discharged to [facility]. I informed her, and her medical staff working that morning, that I was very happy to see him in the office the coming week or soon thereafter, for any oral surgery needs. It is my understanding that he did not have a fever, swelling or a white count. Thank you.
== END 2017-01-23 13:04 | DRG 158 ==
LOC: ENRESERVDT → ENRESERVTM → C.EDB 09:20 → C.4E 12:11 → C.2E 16:30 → C.4E 16:30 → C.2E 17:31 → OBSVTOIN 01-20 17:54 → C.MED 01-20 20:32
PROVIDERS: ADMIT Internal Medicine; ATTEND Internal Medicine
DX: K04.7 Periapical abscess without sinus (principal); E87.1 Hypo-osmolality and hyponatremia; D75.1 Secondary polycythemia; I44.0 Atrioventricular block, first degree; F31.9 Bipolar disorder, unspecified; N40.0 Benign prostatic hyperplasia without lower urinary tract symptoms; E78.5 Hyperlipidemia, unspecified; I10 Essential (primary) hypertension; E03.9 Hypothyroidism, unspecified; R73.9 Hyperglycemia, unspecified; I44.4 Left anterior fascicular block; Z79.82 Long term (current) use of aspirin

== ENCOUNTER → 2017-05-30 | Outpatient (CLI) | payer OTHER, BC ==
[~2017-05-30] MED LIST changes: +ASPCH81X PO; -ASPEC81 PO; +DIVA500T3 PO; -DPKSR500 PO; +FLUT0.15 NAE; +HYDR-5688 PO; +LEVO100T7 PO; -PSYL55.43 PO; +PSYL58.611 PO; -SYN100 PO; -[UNRECOGNIZED DRUG - OTHER] NAE
[2017-05-30 13:50] LABS: BLOOD UREA NITROGEN 15 mg/dl (7-18); BUN/CREATININE RATIO 16.1 (10-20); CALCIUM 10.1 mg/dl (8.5-10.1); CARBON DIOXIDE 29 mmol/L (21-32); CHLORIDE 98 mmol/L (98-107); GLUCOSE 121 mg/dl (70-99); POTASSIUM 4.3 mmol/L (3.5-5.1); SODIUM 133 mmol/L (136-145)
[2017-05-30 18:06] LABS: ESTIMATED AVERAGE GLUCOSE 123 mg/dl; HA1C FLAG Normal (Normal)
[2017-06-04 00:36] LABS: NORMETANEPHRINE PLASMA 146 pg/mL (<=148); TOTAL METANEPHRINE PLASMA 223 pg/mL (<=205)
== END | disposition home or self-care (01) ==
LOC: C.LAB1850 11:26
PROVIDERS: ATTEND Internal Medicine Endocrinology, Diabetes & Metabolism
DX: E03.9 Hypothyroidism, unspecified (principal); E83.52 Hypercalcemia; R73.03 Prediabetes; R61 Generalized hyperhidrosis; R41.3 Other amnesia

== ENCOUNTER → 2017-09-07 | Outpatient (CLI) | payer OTHER, BC ==
[2017-09-07 16:16] LABS: FOLLICLE STIMULAT HORMONE 3.37 IU/L; LUTEINIZING HORMONE 2.62 IU/L
== END | disposition home or self-care (01) ==
LOC: C.LAB1850 14:08
PROVIDERS: ATTEND Internal Medicine Endocrinology, Diabetes & Metabolism
DX: R61 Generalized hyperhidrosis (principal); E03.9 Hypothyroidism, unspecified

== ENCOUNTER 2018-09-11 11:08 | Inpatient (IN) ==
[2018-09-11] MEDS ORDERED: ACETAMINOPHEN 325 MG TAB PO STA (11:32)
[2018-09-11] MEDS ORDERED: TRAMADOL HCL 50 MG TABLET PO STA (11:32)
--- NOTE | 2018-09-11 12:24 | XRay Report ---
RIGHT HIP 2 VIEWS CLINICAL HISTORY: Right hip pain. FINDINGS: AP and frog-leg views of the right hip are compared to study dated 11/28/2011. The skeletal structures are osteopenic. No fracture is identified involving the right hip or the visualized right hemipelvis. Mild arthritic change and joint space narrowing is seen in the hip. Enthesophytes arise f rom the right anterior superior iliac spine. The overlying soft tissues are normal in appearance. The re is atherosclerotic calcification of the right femoral artery. Mild sclerotic change is noted in th e sacroiliac joints. IMPRESSION: No acute bony abnormality is identified in the right hip. Electronically signed by: Jose Alvarado M.D. 09/11/2018 12:22 PM
--- NOTE | 2018-09-11 12:27 | XRay Report ---
XR lumbar spine min 4V routine HISTORY: Pain right hip pain COMPARISON: None. FINDINGS: No evidence for compression deformity. No subluxation. Considerable degenerative disc bautista e throughout. Degenerative change of vertebral endplates throughout with considerable anterior osteop hytic change from L1 through L3. IMPRESSION: Significant degenerative change. No acute process. The above report was generated using voice recognition software. It may contain grammatical, syntax or spelling errors. Electronically signed by: Brandan Nunez M.D. 09/11/2018 12:26 PM
[2018-09-11] MEDS: LIDOCAINE 5% 1 PATCH TD SCH (14:01)
[2018-09-11 15:06] LABS: Albumin Level 3.4 gm/dl (3.4-5.0); BUN Creatinine Ratio 15.8 (10-20); Calcium 9.8 mg/dl (8.5-10.1); Creatinine Clr Calc Pharmacy 59.2 ml/min; Est GFR (Non-African American) 56.9; Potassium 4.4 mmol/L (3.5-5.1)
[2018-09-11 15:09] LABS: Albumin Globulin Ratio 0.8 (0.9-2); Basophils # (auto) 0.01 K/uL (0-0.2); Basophils % (auto) 0.1 %; Bilirubin,Total 0.8 mg/dl (0.2-1); Eosinophils # (auto) 0.05 K/uL (0-0.5); Eosinophils % (auto) 0.7 %; Globulin 4.3 gm/dl (2.5-4.0); Hematocrit (blood only) 50.2 % (42-52); Hemoglobin 17.4 g/dL (14.0-18.0); Immature Granulocytes # (auto) 0.02 K/uL (0.00-0.02); Immature Granulocytes % (auto) 0.3 %; Lymphocytes # (auto) 1.91 K/uL (1.2-3.4); Lymphocytes % (auto) 25.8 %; Mean Corpuscular Hgb Conc 34.7 g/dL (32-36); Mean Corpuscular Volume 96.2 fL (80-100); Mean Platelet Volume 10.2 fL (7.4-10.4); Monocytes # (auto) 0.89 K/uL (0.11-0.59); Neutrophils # (auto) 4.51 K/uL (1.4-6.5); Neutrophils % (auto) 61.1 %; Platelet Count 139 K/uL (130-400); Red Blood Count 5.22 M/uL (4.7-6.1); Total Protein 7.7 gm/dl (6.4-8.2); White Blood Count 7.39 K/uL (4.8-10.8)
--- NOTE | 2018-09-11 16:02 | History & Physical Report ---
Date of Service September 11, 2018 Assessment & Plan (1) Pain in right hip: (2) Ambulatory dysfunction: This is an 83-year-old male with a PMH of Parkinson's disease, bipolar disorder, HTN, HLD, hypothyroidism and other medical problems listed below who presents with right hip pain and difficulty ambulating x 2 weeks. -Hemodynamically stable -R hip XR without acute abnormalities -In setting of Parkinson's Disease, deconditioning -PT/OT evaluation -Possible discharge to [facility] -Pain control (3) Hyponatremia: Sodium of 129 initially in setting of dehydration -May be contributing to generalized weakness -No history of hyponatremia, per chart review -Gentle IV resuscitation, recheck BMP this evening at 2000 (4) HTN (hypertension): Normotensive -Continue home dose lisinopril (5) Parkinson's disease: Continue Sinemet TID (6) Bipolar disorder: Stable. Continue Depakote, Zyprexa (7) HLD (hyperlipidemia): Continue statin DVT Ppx: SQ heparin Code status: FULL pre discussion with patient, at bedside PCP: Malka Dispo: Admitted to [facility]. Discharge planning ordered for possible rehab placement. Patient seen in collaboration with . Please see addendum. History of Present Illness Chief Complaint: Difficulty ambulating, generalized weakness Primary Care Provider: Anthony Ace, This is an 83-year-old male with a PMH of Parkinson's disease, bipolar disorder , HTN, HLD, hypothyroidism and other medical problems listed below who presents with right hip pain and difficulty ambulating x 2 weeks. At baseline, patient ambulates with a walker and has some dysfunction due to Parkinson's disease. Per , patient has seemed generally weak and fatigued over the past few weeks , and sleep has been compromised in the setting of right hip pain. PO intake has decreased since patient is not able to easily ambulate. Denies any weakness or paresthesias in right lower extremity. No recent falls. does not feel like she can care for patient at home with current state of generalized weakness. Patient has required acute inpatient rehab at [facility] in the past which has significantly helped patient's ambulatory status. Hip pain has resolved with lidocaine patch on affected area. Denies any fever, chills, lightheadedness, headache, chest pain, palpitations, shortness of breath , abdominal pain, nausea, vomiting, dysuria, diarrhea or constipation. Takes all medications as scheduled. Follows with neurology for Parkinson's disease. Allergies Allergy/AdvReac Type Severity Reaction Status Date / Time rofecoxib Allergy Mild ITCHING Verified 09/11/18 11:12 clonazepam Allergy Unknown Verified 09/11/18 11:12 imipramine Allergy Unknown Verified 09/11/18 11:12 risperidone Allergy Unknown Verified 09/11/18 11:12 thioridazine Allergy Unknown Verified 09/11/18 11:12 valproic acid AdvReac Severe unknown Verified 09/11/18 11:12 Ethanol Allergy Unknown unk Uncoded 09/11/18 11:12 Home Medications Home Medications Medication Instructions Recorded Confirmed Type aspirin 81 mg PO QAM 09/11/18 09/11/18 History carbidopa-levodopa 1 tab PO TID 09/11/18 09/11/18 History clobetasol 1 applic TOPICAL DIRECTED PRN 09/11/18 09/11/18 History divalproex 500 mg PO AMPM 09/11/18 09/11/18 History fluticasone [Flonase Allergy 2 spray INTRANASAL DAILY 09/11/18 09/11/18 History Relief] latanoprost (PF) 1 drp OPHTHALMIC (EYE) HS 09/11/18 09/11/18 History levothyroxine 75 mcg PO QAM 09/11/18 09/11/18 History lisinopril 40 mg PO DAILY 09/11/18 09/11/18 History multivitamin with minerals 1 tab PO DAILY 09/11/18 09/11/18 History olanzapine 5 mg PO HS 09/11/18 09/11/18 History psyllium husk [Metamucil] 1 dose PO HS PRN 09/11/18 09/11/18 History simvastatin 20 mg PO PM 09/11/18 09/11/18 History Past Med/Surg History Medical History HLD (hyperlipidemia) (Chronic) HTN (hypertension) (Chronic) Bipolar disorder (Chronic) Parkinson's disease (Chronic) Allergic rhinitis (Chronic) BPH (benign prostatic hyperplasia) (Chronic) Secondary polycythemia (Chronic) RBBB (Chronic) 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) Dyslipidemia (Chronic) Incomplete bladder emptying (Chronic) Epilepsy Surgical History S/P TURP (status post transurethral resection of prostate) (Chronic) Family History Other CVA (cerebral vascular accident) Social History marital status: Current Living Situation: Spouse current occupational status: retired Other Information That Helps Us Care for You: No Feels Safe at Home: Yes Safety Concerns: Feels Safe At This Time Smoking Status: Never smoker Do You Dip or Chew Tobacco: No Second Hand Exposure: No Tobacco Cessation Education Requested by Patient: No Hx Alcohol Use: No Hx Substance Use: No Beliefs That Will Affect Care: None Preferred Language: Indonesian Communication Ability: Effective Reticle Printer Required: No Review of Systems All systems reviewed & are unremarkable except as noted in HPI & below Physical Exam 2 Vital Signs (Past 24 Hours): Last Vital Signs Temp 36.9 C 09/11/18 11:17 Pulse 61 09/11/18 12:50 Resp 20 09/11/18 12:50 BP 138/76 09/11/18 12:50 Pulse Ox 93 09/11/18 12:50 Physical Exam: General Appearance: WD/WN, no apparent distress, resting comfortably Head: normocephalic, atraumatic Eyes: normal inspection, PERRL, EOMI ENT: hearing grossly normal, pharynx normal (moist mucous membranes) Neck: supple, no JVD, no adenopathy Respiratory/Chest: lungs clear to auscultation. No wheezes, rales or rhonci. No respiratory distress or accessory muscle use Cardiovascular: regular rate, rhythm, no murmur, normal peripheral pulses Abdomen/GI: normal bowel sounds, soft, non-tender to palpation Extremities/Musculoskelatal: normal inspection, no calf tenderness, normal capillary refill, no pedal edema Neurologic/Psych: alert, normal mood/affect, oriented x 3 Skin: normal color, warm/dry Results & Data Laboratory Results Short CBC 09/11/18 Range/Units 11:20 WBC 7.39 (4.8-10.8) K/uL Hgb 17.4 (14.0-18.0) g/dL Hct 50.2 (42-52) % Plt Count 139 (130-400) K/uL BMP 09/11/18 11:20 Sodium 129 L Potassium 4.4 Chloride 93 L Carbon Dioxide 31 BUN 19 H Creatinine 1.17 Glucose 150 H Calcium 9.8 Liver Function 09/11/18 Range/Units 11:20 Total Bilirubin 0.8 (0.2-1) mg/dl AST 12 L (15-37) U/L ALT 22 (12-78) U/L Alkaline Phosphatase 51 (45-117) U/L Albumin 3.4 (3.4-5.0) gm/dl Diagnostic Findings R hip XR: IMPRESSION: No acute bony abnormality is identified in the right hip. Lumbar spine XR: IMPRESSION: Significant degenerative change. No acute process. Code Status & VTE Plan Code Status FULL VTE Prophylaxis Plan VTE Prophylaxis will be ordered: Yes Supervising Physician Co-Signing Physician Notes Attending addendum Patient was seen and examined in emergency room Has been complaining of right hip/flank pain for the last few days Patient complaining of ambulatory dysfunction secondary to pain He denies any chest pain, shortness of breath or palpitation On examination; No acute distress at rest Seems to be controlled with the lidocaine patch Hemodynamically stable Chest-decreased breath sounds both sides without any wheezing and or crackles Heart--S1-S2 regular Abdomen-benign, bowel sounds present Extremities-no edema Local examination of the right hip area-tender to palpate, no lump noted, movement of the right hip is painful TRANSPLANT COORDINATOR-alert and awake Labs and imaging studies noted As sodium of 129-likely secondary to low intake Will give intravenous fluid PT and OT evaluation for possible placement The pain in the right hip seems to be due to trochanteric bursitis I agree with assessment and plan as outlined above by Eliz Peraza
[2018-09-11] MEDS: CARBIDOPA/LEVODOPA 25/100MG TAB PO SCH ×2 (16:20→20:30)
[2018-09-11] MEDS: SODIUM CHLORIDE 0.9% 1000ML 1,000 ML IV SCH (16:23)
[2018-09-11] MEDS ORDERED: ONDANSETRON INJ 2 MG/ML 2 ML VIAL IV PRN (17:27)
[2018-09-11] MEDS ORDERED: CLOBETASOL PROPIONATE 0.05% OINT 15 GM TUBE EXT PRN (17:59)
[2018-09-11 18:02] LABS: Prothrombin Time 10.3 Seconds (9.0-12.0)
--- NOTE | 2018-09-11 19:38 | Emergency Department Note ---
Entered by Yolanda Charles acting as a scribe for History of Present Illness General Chief complaint: Hip Pain Stated complaint: TROUBLE AMBULATING Source: patient and family () Mode of arrival: EMS Limitations: no limitations History of Present Illness Provider complaint: Hip pain Onset (ago): week(s) 2 Location: pelvis (hip) and right Radiation: other (front of right leg) Pain Consistency: + intermittent Maximum Pain Intensity: 4 Quality: + other (pain) Relieved By: + other (heat therapy) Exacerbated By: + movement Associated symptoms: + other (Additional symptoms: difficulty sleeping secondary to pain. Denies: bowel/bladder incontinence); no cough The patient is an 83 year old male with a history of Parkinson's disease and bipolar disorder who presents to the Emergency Room with complaints of intermittent right hip pain starting 2 weeks ago. The patient reports that his pain radiates down the front of his right leg but not down the back of his leg, fluctuates between a 3 to 8/10 intensity, and worsens with movement. He states that his pain may be related to exercise because notes that he has been doing repetitive exercises since he was admitted to and discharged recently from [facility]. He notes that he believes he did too many repetitions one day and is worried that he may have pulled a muscle. The patient reports that he has taken Tylenol with no relief and tried heat therapy with some relief. He states that heat therapy last night, however, was ineffective. The patient denies bowel /bladder incontinence, in addition to any recent falls or a history of bone fractures. Per , the patient has not been sleeping secondary to his pain. She also claims that he has had trouble with his right hip in the past, although he has never had right hip surgery. She states the patient's PCP is Dr. Ace. Home Medications Home Medications Medication Instructions Recorded Confirmed Type aspirin 81 mg PO QAM 09/11/18 09/11/18 History carbidopa-levodopa 1 tab PO TID 09/11/18 09/11/18 History clobetasol 1 applic TOPICAL DIRECTED PRN 09/11/18 09/11/18 History divalproex 500 mg PO AMPM 09/11/18 09/11/18 History fluticasone [Flonase Allergy 2 spray INTRANASAL DAILY 09/11/18 09/11/18 History Relief] latanoprost (PF) 1 drp OPHTHALMIC (EYE) HS 09/11/18 09/11/18 History levothyroxine 75 mcg PO QAM 09/11/18 09/11/18 History lisinopril 40 mg PO DAILY 09/11/18 09/11/18 History multivitamin with minerals 1 tab PO DAILY 09/11/18 09/11/18 History olanzapine 5 mg PO HS 09/11/18 09/11/18 History psyllium husk [Metamucil] 1 dose PO HS PRN 09/11/18 09/11/18 History simvastatin 20 mg PO PM 09/11/18 09/11/18 History Allergies Allergy/AdvReac Type Severity Reaction Status Date / Time rofecoxib Allergy Mild ITCHING Verified 09/11/18 11:12 clonazepam Allergy Unknown Verified 09/11/18 11:12 imipramine Allergy Unknown Verified 09/11/18 11:12 risperidone Allergy Unknown Verified 09/11/18 11:12 thioridazine Allergy Unknown Verified 09/11/18 11:12 valproic acid AdvReac Severe unknown Verified 09/11/18 11:12 Ethanol Allergy Unknown unk Uncoded 09/11/18 11:12 Past Med/Surg History Medical History HLD (hyperlipidemia) (Chronic) HTN (hypertension) (Chronic) Bipolar disorder (Chronic) Parkinson's disease (Chronic) Allergic rhinitis (Chronic) BPH (benign prostatic hyperplasia) (Chronic) Secondary polycythemia (Chronic) RBBB (Chronic) 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) Dyslipidemia (Chronic) Incomplete bladder emptying (Chronic) Epilepsy Surgical History S/P TURP (status post transurethral resection of prostate) (Chronic) Family History Other CVA (cerebral vascular accident) Social History marital status: Current Living Situation: Spouse current occupational status: retired Other Information That Helps Us Care for You: No Feels Safe at Home: Yes Safety Concerns: Feels Safe At This Time Smoking Status: Never smoker Do You Dip or Chew Tobacco: No Second Hand Exposure: No Tobacco Cessation Education Requested by Patient: No Hx Alcohol Use: No Hx Substance Use: No Beliefs That Will Affect Care: None Communication Ability: Effective Review of Systems See HPI for pertinent positives & negatives. and A total of 10 systems reviewed and were otherwise negative Physical Exam Vital Signs Vital Signs - 24 hr 09/12/18 07:26 09/12/18 11:14 09/12/18 14:37 Temperature 36.3 C L 36.4 C L 36.3 C L Temperature Source Oral Oral Oral Pulse Rate [Right Finger] 65 65 67 Respiratory Rate 18 20 18 Blood Pressure [Left Arm] Blood Pressure [Right Arm] 157/81 H 153/78 H 174/91 H Blood Pressure Mean [Left Arm] Blood Pressure Mean [Right Arm] 106 103 118 Blood Pressure Position [Left Arm] Sitting Blood Pressure Position [Right Arm] Lying Lying Pulse Oximetry 94 93 94 Oxygen Delivery Method Room Air Room Air 09/12/18 16:10 09/13/18 00:00 Temperature 36.3 C L 36.5 C Temperature Source Oral Oral Pulse Rate [Right Finger] 61 76 Respiratory Rate 20 20 Blood Pressure [Left Arm] 159/96 H Blood Pressure [Right Arm] 149/75 H Blood Pressure Mean [Left Arm] 117 Blood Pressure Mean [Right Arm] 99 Blood Pressure Position [Left Arm] Blood Pressure Position [Right Arm] Pulse Oximetry 98 92 Oxygen Delivery Method Room Air Vital signs reviewed. General: elderly, generally well-appearing male, in no significant distress, hard of hearing. HEENT: No scleral icterus, PERRLA, neck supple. Atraumatic. Seborrheic to the face. Cardiovascular: Regular rate and rhythm, no extra sounds. Pulmonary: Clear to auscultation bilaterally, normal work of breathing. Abdomen: Soft, nontender, nondistended, positive bowel sounds. Musculoskeletal: Atraumatic, no peripheral edema. Tender over the bursa of the greater trochanter of the right hip, full range of motion of the right hip with no pain. Neurologic: Patient awake alert and oriented x 3, full strength in all 4 extremities. Parkinsonian-like flat affect. Answers most questions appropriately. Skin: Warm, dry, no rash Course 1127: Past medical records reviewed. The patient was evaluated in room C9, and a complete history and physical examination were performed. 1324: I checked on the patient and updated him on his results. I ordered an ambulatory for the patient and if that goes well, he will be discharged. 1449: I reviewed the patient's case with Renzo Martinez PA-C to Dr. Peraza [facility]. Peraza will evaluate the patient for further management. Consultations Consultation #1: I reviewed the patient's case with Renzo Martinez PA-C to Dr. Peraza - Renzo Seymour. Dr. Peraza will evaluate the patient for further management. Time: 14:49 Administered Medications Acetaminophen (Tylenol) 650 mg PO Q4H PRN PRN Reason: Pain or Fever Stop: 10/11/18 17:26 Last Admin: 09/12/18 06:01 Dose: 650 mg Admin: 09/11/18 20:37 Dose: 650 mg Aspirin (Ecotrin) 81 mg PO QAM [facility] Stop: 10/12/18 08:59 Last Admin: 09/12/18 07:39 Dose: 81 mg Carbidopa/Levodopa (Sinemet 25/100 Mg) 1 tab PO TID [facility] Stop: 10/11/18 15:59 Last Admin: 09/12/18 20:17 Dose: 1 tab Admin: 09/12/18 13:39 Dose: 1 tab Admin: 09/12/18 07:38 Dose: 1 tab Admin: 09/11/18 20:30 Dose: 1 tab Admin: 09/11/18 16:20 Dose: 1 tab Divalproex Sodium (Depakote Extended Release) 500 mg PO BID [facility] Stop: 10/11/18 20:59 Last Admin: 09/12/18 20:17 Dose: 500 mg Admin: 09/12/18 07:37 Dose: 500 mg Admin: 09/11/18 20:29 Dose: 500 mg Fluticasone Propionate (Flonase) 2 sprays HEYDI DAILY [facility] Stop: 10/12/18 08:59 Last Admin: 09/12/18 07:36 Dose: 2 sprays Heparin Sodium (Porcine) (Heparin Sodium (Porcine)) 5,000 units SQ Q8 [facility] Stop: 10/11/18 21:59 Last Admin: 09/13/18 05:59 Dose: 5,000 units Admin: 09/12/18 20:53 Dose: 5,000 units Admin: 09/12/18 13:39 Dose: 5,000 units Admin: 09/12/18 06:01 Dose: 5,000 units Admin: 09/11/18 20:37 Dose: 5,000 units Levothyroxine Sodium (Synthroid) 75 mcg PO DAILYBB [facility] Stop: 10/12/18 06:29 Last Admin: 09/13/18 05:59 Dose: 75 mcg Admin: 09/12/18 06:02 Dose: 75 mcg Lidocaine (Lidoderm 5%) 1 patch TD QAM [facility] Stop: 10/11/18 13:59 Last Admin: 09/12/18 07:40 Dose: 1 patch Admin: 09/11/18 14:01 Dose: 1 patch Lisinopril (Zestril) 40 mg PO DAILY [facility] Stop: 10/12/18 08:59 Last Admin: 09/12/18 07:38 Dose: 40 mg Menthol (Nice) 1 isai BUCCAL Q1H PRN PRN Reason: Cough Stop: 10/11/18 21:05 Last Admin: 09/11/18 21:43 Dose: 1 isai Miscellaneous (Remove Lidoderm Patch) 1 ea N/A DAILY@2100 [facility] Stop: 10/11/18 20:59 Last Admin: 09/12/18 20:16 Dose: 1 ea Admin: 09/11/18 20:30 Dose: 1 ea Miscellaneous (Order Awaiting Action) 1 ea N/A QS [facility] Stop: 10/12/18 00:00 Last Admin: 09/13/18 00:28 Dose: Not Given Admin: 09/12/18 17:45 Dose: Not Given Admin: 09/12/18 06:59 Dose: Not Given Admin: 09/11/18 22:11 Dose: Not Given Multivitamins/Minerals (Multivitamin W/ Minerals) 1 tab PO DAILY [facility] Stop: 10/12/18 08:59 Last Admin: 09/12/18 07:38 Dose: 1 tab Olanzapine (Zyprexa) 5 mg PO HS [facility] Stop: 10/11/18 20:59 Last Admin: 09/12/18 20:17 Dose: 5 mg Admin: 09/11/18 20:30 Dose: 5 mg Polyethylene Glycol (Miralax Powder Packet) 17 gm PO DAILY PRN PRN Reason: Constipation Stop: 10/11/18 17:26 Last Admin: 09/12/18 14:28 Dose: 17 gm Psyllium Hydrophilic Mucilloid (Metamucil) 1 pkt PO DAILY PRN PRN Reason: Constipation Stop: 10/11/18 17:44 Last Admin: 09/12/18 14:28 Dose: 1 pkt Simvastatin (Zocor) 20 mg PO PM [facility] Stop: 10/11/18 20:59 Last Admin: 09/12/18 20:17 Dose: 20 mg Admin: 09/11/18 20:29 Dose: 20 mg Tramadol HCl (Ultram) 50 mg PO Q6H PRN PRN Reason: Pain Stop: 10/11/18 20:58 Last Admin: 09/13/18 01:11 Dose: 50 mg Admin: 09/12/18 18:33 Dose: 50 mg Admin: 09/12/18 12:47 Dose: 50 mg Admin: 09/12/18 00:19 Dose: 50 mg Discontinued Medications Acetaminophen (Tylenol) 650 mg PO NOW STA Stop: 09/11/18 11:33 Last Admin: 09/11/18 11:43 Dose: 650 mg Sodium Chloride (Nss 1000ml) 1,000 mls @ 100 mls/hr IV .Q10H [facility] Stop: 09/12/18 12:01 Last Infusion: 09/12/18 11:51 Dose: 0 mls/hr Admin: 09/12/18 02:57 Dose: 100 mls/hr Infusion: 09/12/18 02:23 Dose: 100 mls/hr Admin: 09/11/18 16:23 Dose: 100 mls/hr Tramadol HCl (Ultram) 50 mg PO NOW STA Stop: 09/11/18 11:33 Last Admin: 09/11/18 11:42 Dose: 50 mg Medical Decision Making Differential Diagnosis Differential diagnosis: Etiologies such as fracture, dislocation, neurovascular compromise, compartment syndrome, soft tissue injury, as well as others were entertained. Medical Records Attestation: I reviewed the patient's medical records. Home Medications Current Medication List: was personally reviewed by me Laboratory Data Attestation: I reviewed the patient's lab results. Result diagrams: 09/12/18 05:43 09/12/18 05:43 Lab Results 09/11/18 09/11/18 09/11/18 Range/Units 11:20 11:20 11:20 WBC 7.39 (4.8-10.8) K/uL RBC 5.22 (4.7-6.1) M/uL Hgb 17.4 (14.0-18.0) g/dL Hct 50.2 (42-52) % MCV 96.2 (80-100) fL MCH 33.3 (25-34) pg MCHC 34.7 (32-36) g/dL RDW Std Deviation 45.0 (36.4-46.3) fL RDW Coeff of Dada 13.0 (11.5-14.5) % Plt Count 139 (130-400) K/uL MPV 10.2 (7.4-10.4) fL Immature Gran % (Auto) 0.3 % Neut % (Auto) 61.1 % Lymph % (Auto) 25.8 % Nelson % (Auto) 12.0 % Eos % (Auto) 0.7 % Baso % (Auto) 0.1 % Immature Gran # (Auto) 0.02 (0.00-0.02) K/uL Neut # (Auto) 4.51 (1.4-6.5) K/uL Lymph # (Auto) 1.91 (1.2-3.4) K/uL Nelson # (Auto) 0.89 H (0.11-0.59) K/uL Eos # (Auto) 0.05 (0-0.5) K/uL Baso # (Auto) 0.01 (0-0.2) K/uL PT 10.3 (9.0-12.0) Seconds INR 1.0 (0.9-1.1) Sodium 129 L (136-145) mmol/L Potassium 4.4 (3.5-5.1) mmol/L Chloride 93 L (98-107) mmol/L Carbon Dioxide 31 (21-32) mmol/L Anion Gap 5.0 (3-11) BUN 19 H (7-18) mg/dl Creatinine 1.17 (0.6-1.4) mg/dl Est Cr Clr Drug Dosing 59.2 ml/min Est GFR ( Amer) 66.0 Est GFR (Non-Af Amer) 56.9 BUN/Creatinine Ratio 15.8 (10-20) Glucose 150 H (70-99) mg/dl Calcium 9.8 (8.5-10.1) mg/dl Total Bilirubin 0.8 (0.2-1) mg/dl AST 12 L (15-37) U/L ALT 22 (12-78) U/L Alkaline Phosphatase 51 (45-117) U/L Total Protein 7.7 (6.4-8.2) gm/dl Albumin 3.4 (3.4-5.0) gm/dl Globulin 4.3 H (2.5-4.0) gm/dl Albumin/Globulin Ratio 0.8 L (0.9-2) 09/11/18 09/12/18 09/12/18 Range/Units 19:48 05:43 05:43 WBC 6.07 (4.8-10.8) K/uL RBC 5.31 (4.7-6.1) M/uL Hgb 17.8 (14.0-18.0) g/dL Hct 50.4 (42-52) % MCV 94.9 (80-100) fL MCH 33.5 (25-34) pg MCHC 35.3 (32-36) g/dL RDW Std Deviation 44.1 (36.4-46.3) fL RDW Coeff of Dada 12.7 (11.5-14.5) % Plt Count 149 (130-400) K/uL MPV 9.5 (7.4-10.4) fL Immature Gran % (Auto) % Neut % (Auto) % Lymph % (Auto) % Nelson % (Auto) % Eos % (Auto) % Baso % (Auto) % Immature Gran # (Auto) (0.00-0.02) K/uL Neut # (Auto) (1.4-6.5) K/uL Lymph # (Auto) (1.2-3.4) K/uL Nelson # (Auto) (0.11-0.59) K/uL Eos # (Auto) (0-0.5) K/uL Baso # (Auto) (0-0.2) K/uL PT (9.0-12.0) Seconds INR (0.9-1.1) Sodium 131 L 133 L (136-145) mmol/L Potassium 4.4 4.5 (3.5-5.1) mmol/L Chloride 96 L 99 (98-107) mmol/L Carbon Dioxide 29 30 (21-32) mmol/L Anion Gap 7.0 5.0 (3-11) BUN 19 H 17 (7-18) mg/dl Creatinine 1.16 0.94 (0.6-1.4) mg/dl Est Cr Clr Drug Dosing 59.7 72.8 ml/min Est GFR ( Amer) 66.7 85.9 Est GFR (Non-Af Amer) 57.5 74.2 BUN/Creatinine Ratio 16.4 17.6 (10-20) Glucose 137 H 97 (70-99) mg/dl Calcium 8.8 8.8 (8.5-10.1) mg/dl Total Bilirubin (0.2-1) mg/dl AST (15-37) U/L ALT (12-78) U/L Alkaline Phosphatase (45-117) U/L Total Protein (6.4-8.2) gm/dl Albumin (3.4-5.0) gm/dl Globulin (2.5-4.0) gm/dl Albumin/Globulin Ratio (0.9-2) Imaging Data Radiologist's Impression: Radiology results as stated below per my review and the radiologist's interpretation: XR lumbar spine min 4V routine HISTORY: Pain right hip pain COMPARISON: None. FINDINGS: No evidence for compression deformity. No subluxation. Considerable degenerative disc change throughout. Degenerative change of vertebral endplates throughout with considerable anterior osteophytic change from L1 through L3. IMPRESSION: Significant degenerative change. No acute process. The above report was generated using voice recognition software. It may contain grammatical, syntax or spelling errors. Electronically signed by: Brandan Nunez M.D. 09/11/2018 12:26 PM RIGHT HIP 2 VIEWS CLINICAL HISTORY: Right hip pain. FINDINGS: AP and frog-leg views of the right hip are compared to study dated . The skeletal structures are osteopenic. No fracture is identified involving the right hip or the visualized right hemipelvis. Mild arthritic change and joint space narrowing is seen in the hip. Enthesophytes arise from the right anterior superior iliac spine. The overlying soft tissues are normal in appearance. There is atherosclerotic calcification of the right femoral artery. Mild sclerotic change is noted in the sacroiliac joints. IMPRESSION: No acute bony abnormality is identified in the right hip. Electronically signed by: Jose Alvarado M.D. 09/11/2018 12:22 PM Blood Pressure Blood Pressure Findings: Normal blood pressure MDM Narrative This patient was evaluated and appeared to be in no significant distress. Physical examination is fairly unrevealing with the exception of the parkinsonian-like features. X-ray of the hip and lumbar spine were performed and reveal no evidence of acute fracture. Patient was reevaluated and appeared to require some assistance with position changes and ambulation. Patient's has expressed her concern with the safety at home as patient is not capable of caring for himself. She states they are extra support is out of town. Laboratory work was performed. There is no significant abnormality. Patient's case was discussed with the hospitalist service as the patient desires [facility] for inpatient rehabilitation however they do not have a bed currently. Patient's has reiterated the safety concerns for both she and her . Impression & Plan Pain in right hip, Parkinson's disease, Ambulatory dysfunction Discharge Plan Visit Data *Final* Discharge Date/Time: 09/11/18 17:09 Chief Complaint: Hip Pain Stated Complaint: TROUBLE AMBULATING ED Provider: Yahaira Gomes Discharge Problem: Pain in right hip, Parkinson's disease, Ambulatory dysfunction Patient Disposition: Admitted As Inpatient Discharge Instructions Interventions: ED Discharge Assessment Last Done: 09/11/18 17:09 The scribe's documentation has been prepared under my direction and personally reviewed by me in its entirety. I confirm that the note above accurately reflects all work, treatment, procedures, and medical decision making performed by me.
[2018-09-11 20:14] LABS: BUN Creatinine Ratio 16.4 (10-20); Calcium 8.8 mg/dl (8.5-10.1); Creatinine Clr Calc Pharmacy 59.7 ml/min; Est GFR (African American) 66.7; Est GFR (Non-African American) 57.5; Potassium 4.4 mmol/L (3.5-5.1)
[2018-09-11] MEDS: DIVALPROEX EXTENDED RELEASE 500 MG TAB PO SCH (20:29)
[2018-09-11] MEDS: SIMVASTATIN 20 MG TAB PO SCH (20:29)
[2018-09-11] MEDS: OLANZapine 5 MG TABLET PO SCH (20:30)
[2018-09-11] MEDS: ACETAMINOPHEN 325 MG TAB PO PRN (20:37)
[2018-09-11] MEDS: HEPARIN SOD 5,000 UNIT/0.5 ML VIAL SQ SCH (20:37)
[2018-09-11] MEDS ORDERED: NURSING DECISION MEDICATION ONE (20:59)
[2018-09-11] MEDS ORDERED: LATANOPROST 0.005% OP SOLN 2.5 ML BTL OP SCH (21:00)
[2018-09-11] MEDS ORDERED: COUGH DROP (SUGAR FREE) LOZ 24 LOZ/1 BOX BUCCAL PRN (21:06)
[2018-09-12] MEDS: TRAMADOL HCL 50 MG TABLET PO PRN ×3 (00:19→18:33)
[2018-09-12] MEDS: SODIUM CHLORIDE 0.9% 1000ML 1,000 ML IV SCH (02:57)
[2018-09-12] MEDS: ACETAMINOPHEN 325 MG TAB PO PRN (06:01)
[2018-09-12] MEDS: HEPARIN SOD 5,000 UNIT/0.5 ML VIAL SQ SCH ×3 (06:01→20:53)
[2018-09-12] MEDS: LEVOTHYROXINE SODIUM 75 MCG TABLET PO SCH (06:02)
[2018-09-12 06:06] LABS: Hematocrit (blood only) 50.4 % (42-52); Hemoglobin 17.8 g/dL (14.0-18.0); Mean Corpuscular Hgb Conc 35.3 g/dL (32-36); Mean Corpuscular Volume 94.9 fL (80-100); Mean Platelet Volume 9.5 fL (7.4-10.4); Platelet Count 149 K/uL (130-400); RDW Coefficient of Variation 12.7 % (11.5-14.5); RDW Standard Deviation 44.1 fL (36.4-46.3); Red Blood Count 5.31 M/uL (4.7-6.1); White Blood Count 6.07 K/uL (4.8-10.8)
[2018-09-12 06:37] LABS: BUN Creatinine Ratio 17.6 (10-20); Calcium 8.8 mg/dl (8.5-10.1); Creatinine Clr Calc Pharmacy 72.8 ml/min; Est GFR (African American) 85.9; Est GFR (Non-African American) 74.2; Potassium 4.5 mmol/L (3.5-5.1)
[2018-09-12] MEDS: FLUTICASONE PROPIONATE NA SPR 16 GM BTL NAE SCH (07:36)
[2018-09-12] MEDS: DIVALPROEX EXTENDED RELEASE 500 MG TAB PO SCH ×2 (07:37→20:17)
[2018-09-12] MEDS: CEROVITE ADV FORMULA TAB PO SCH (07:38)
[2018-09-12] MEDS: CARBIDOPA/LEVODOPA 25/100MG TAB PO SCH ×3 (07:38→20:17)
[2018-09-12] MEDS: LISINOPRIL 40 MG TAB PO SCH (07:38)
[2018-09-12] MEDS: ASPIRIN 81 MG ECTAB PO SCH (07:39)
[2018-09-12] MEDS: LIDOCAINE 5% 1 PATCH TD SCH (07:40)
--- NOTE | 2018-09-12 12:02 | Hospitalist Progress Note ---
Date of Service September 12, 2018 Assessment & Plan (1) Pain in right hip: Likely has right greater trochanteric bursitis (2) Ambulatory dysfunction: This is an 83-year-old male with a PMH of Parkinson's disease, bipolar disorder, HTN, HLD, hypothyroidism and other medical problems listed below who presents with right hip pain and difficulty ambulating x 2 weeks. -Hemodynamically stable -R hip XR without acute abnormalities -In setting of Parkinson's Disease, deconditioning -PT/OT evaluation -and will likely need rehab -Possible discharge to [facility] -Pain is not controlled with pain patch local -Likely has right greater trochanteric bursitis -We will consult Orth O for possible local steroid injection (3) Hyponatremia: Sodium of 129 initially in setting of dehydration -May be contributing to generalized weakness -No history of hyponatremia, per chart review -Gentle IV resuscitation, recheck BMP this evening at 2000 -Sodium level has increased to 133 today (4) HTN (hypertension): Normotensive -Continue home dose lisinopril (5) Parkinson's disease: Continue Sinemet TID Tremors seems to be controlled Ambulatory dysfunction is secondary to parkinsonism (6) Bipolar disorder: Stable. Continue Depakote, Zyprexa (7) HLD (hyperlipidemia): Continue statin DVT Ppx: SQ heparin Code status: FULL pre discussion with patient, at bedside PCP: Malka Dispo: Admitted to [facility]. Discharge planning ordered for possible rehab placement. Patient will be transferred to medical floor Continue PT and OT Will likely need placement Subjective He is an 83-year-old old male with significant past medical history including Parkinson's disease, bipolar disorder, hypertension, chronic hyponatremia and recent diagnosis of right greater trochanteric bursitis with ambulatory dysfunction was admitted yesterday with increasing pain and increasing problem with ambulation. 09/12 Patient was seen and examined in telemetry unit Pain seems to be not reasonably controlled with pain patch May be better with local injection Denies any other symptoms except bilateral leg weakness Will get physical therapy and likely to need rehab on discharge Physical Exam 2 Vital Signs (Past 24 Hours): Last Vital Signs Temp 36.4 C L 09/12/18 11:14 Pulse 65 09/12/18 11:14 Resp 20 09/12/18 11:14 BP 153/78 H 09/12/18 11:14 Pulse Ox 93 09/12/18 11:14 Physical Exam: Lying in bed comfortably Constitutional: WD/WN, vitals as above Denies any acute distress Eyes: PERRL, conjunctivae normal, anicteric sclerae ENMT: external ear and nose normal, oropharynx normal Respiratory: normal respiratory effort Auscultation: + diminished lung sounds (Especially at the bases) Cardiovascular: Rate/Rhythm: regular rate and regular rhythm Heart Sounds: normal S1 and normal S2 Gastrointestinal (Abdomen): normal bowel sounds, soft, nontender, no hepatosplenomegaly Inspection/Auscultation: abdomen normal to inspection and normal bowel sounds Musculoskeletal: Hip: + limited ROM of hip (Due to pain in the right hip) and + joint line tenderness (Tenderness over right greater trochanter and adjoining areas) Neurologic: Alert, awake and oriented. Minimal dysarthria. Has parkinsonian tremors involving mainly upper extremities Results & Data Laboratory Results Short CBC 09/11/18 09/12/18 Range/Units 11:20 05:43 WBC 7.39 6.07 (4.8-10.8) K/uL Hgb 17.4 17.8 (14.0-18.0) g/dL Hct 50.2 50.4 (42-52) % Plt Count 139 149 (130-400) K/uL BMP 09/11/18 09/11/18 09/12/18 11:20 19:48 05:43 Sodium 129 L 131 L 133 L Potassium 4.4 4.4 4.5 Chloride 93 L 96 L 99 Carbon Dioxide 31 29 30 BUN 19 H 19 H 17 Creatinine 1.17 1.16 0.94 Glucose 150 H 137 H 97 Calcium 9.8 8.8 8.8 Liver Function 09/11/18 Range/Units 11:20 Total Bilirubin 0.8 (0.2-1) mg/dl AST 12 L (15-37) U/L ALT 22 (12-78) U/L Alkaline Phosphatase 51 (45-117) U/L Albumin 3.4 (3.4-5.0) gm/dl Medications Administered Current Inpatient Medications Acetaminophen (Tylenol) 650 mg PO Q4H PRN PRN Reason: Pain or Fever Stop: 10/11/18 17:26 Last Admin: 09/12/18 06:01 Dose: 650 mg [facility]) [facility] Stop: 10/12/18 08:59 Last Admin: 09/12/18 07:39 Dose: 81 mg Carbidopa/Levodopa (Sinemet 25/100 Mg) 1 tab PO TID [facility] Stop: 10/11/18 15:59 Last Admin: 09/12/18 07:38 Dose: 1 tab Clobetasol Propionate (Clobetasol Propionate Oint) 1 appln EXT UD PRN PRN Reason: jock itch Stop: 10/11/18 17:58 Divalproex Sodium (Depakote Extended Release) 500 mg PO BID [facility] Stop: 10/11/18 20:59 Last Admin: 09/12/18 07:37 Dose: 500 mg Fluticasone Propionate (Flonase) 2 sprays HEYDI DAILY [facility] Stop: 10/12/18 08:59 Last Admin: 09/12/18 07:36 Dose: 2 sprays Heparin Sodium (Porcine) (Heparin Sodium (Porcine)) 5,000 units SQ Q8 [facility] Stop: 10/11/18 21:59 Last Admin: 09/12/18 06:01 Dose: 5,000 units Sodium Chloride (Nss 1000ml) 1,000 mls @ 100 mls/hr IV .Q10H [facility] Stop: 09/12/18 12:01 Last Infusion: 09/12/18 11:51 Dose: Infused Levothyroxine Sodium (Synthroid) 75 mcg PO DAILYBB [facility] Stop: 10/12/18 06:29 Last Admin: 09/12/18 06:02 Dose: 75 mcg Lidocaine (Lidoderm 5%) 1 patch TD QAM [facility] Stop: 10/11/18 13:59 Last Admin: 09/12/18 07:40 Dose: 1 patch Lisinopril (Zestril) 40 mg PO DAILY [facility] Stop: 10/12/18 08:59 Last Admin: 09/12/18 07:38 Dose: 40 mg Menthol (Nice) 1 isai BUCCAL Q1H PRN PRN Reason: Cough Stop: 10/11/18 21:05 Last Admin: 09/11/18 21:43 Dose: 1 isai Miscellaneous (Remove Lidoderm Patch) 1 ea N/A DAILY@2100 [facility] Stop: 10/11/18 20:59 Last Admin: 09/11/18 20:30 Dose: 1 ea Miscellaneous (Order Awaiting Action) 1 ea N/A QS [facility] Stop: 10/12/18 00:00 Last Admin: 09/12/18 06:59 Dose: Not Given Multivitamins/Minerals (Multivitamin W/ Minerals) 1 tab PO DAILY [facility] Stop: 10/12/18 08:59 Last Admin: 09/12/18 07:38 Dose: 1 tab Olanzapine (Zyprexa) 5 mg PO HS [facility] Stop: 10/11/18 20:59 Last Admin: 09/11/18 20:30 Dose: 5 mg Ondansetron HCl (Zofran) 4 mg IV Q6H PRN PRN Reason: Nausea Stop: 10/11/18 17:26 Polyethylene Glycol (Miralax Powder Packet) 17 gm PO DAILY PRN PRN Reason: Constipation Stop: 10/11/18 17:26 Psyllium Hydrophilic Mucilloid (Metamucil) 1 pkt PO DAILY PRN PRN Reason: Constipation Stop: 10/11/18 17:44 Simvastatin (Zocor) 20 mg PO PM [facility] Stop: 10/11/18 20:59 Last Admin: 09/11/18 20:29 Dose: 20 mg Tramadol HCl (Ultram) 50 mg PO Q6H PRN PRN Reason: Pain Stop: 10/11/18 20:58 Last Admin: 09/12/18 00:19 Dose: 50 mg
[2018-09-12] MEDS: POLYETHYLENE (MIRALAX) 17 GM PACK PO PRN (14:28)
[2018-09-12] MEDS: PSYLLIUM 58.6% POWDER PACKET PO PRN (14:28)
[2018-09-12] MEDS: OLANZapine 5 MG TABLET PO SCH (20:17)
[2018-09-12] MEDS: SIMVASTATIN 20 MG TAB PO SCH (20:17)
[2018-09-13] MEDS: TRAMADOL HCL 50 MG TABLET PO PRN ×2 (01:11→13:49)
[2018-09-13] MEDS: LEVOTHYROXINE SODIUM 75 MCG TABLET PO SCH (05:59)
[2018-09-13] MEDS: HEPARIN SOD 5,000 UNIT/0.5 ML VIAL SQ SCH ×2 (05:59→20:19)
[2018-09-13 06:26] LABS: Hematocrit (blood only) 50.7 % (42-52); Hemoglobin 17.8 g/dL (14.0-18.0); Mean Corpuscular Hgb Conc 35.1 g/dL (32-36); Mean Corpuscular Volume 93.7 fL (80-100); Mean Platelet Volume 9.4 fL (7.4-10.4); Platelet Count 144 K/uL (130-400); RDW Coefficient of Variation 12.8 % (11.5-14.5); RDW Standard Deviation 43.6 fL (36.4-46.3); Red Blood Count 5.41 M/uL (4.7-6.1)
[2018-09-13 06:53] LABS: BUN Creatinine Ratio 15.5 (10-20); Est GFR (African American) 84.9; Est GFR (Non-African American) 73.2; Potassium 4.7 mmol/L (3.5-5.1)
[2018-09-13] MEDS: LISINOPRIL 40 MG TAB PO SCH (08:22)
[2018-09-13] MEDS: FLUTICASONE PROPIONATE NA SPR 16 GM BTL NAE SCH (08:22)
[2018-09-13] MEDS: ASPIRIN 81 MG ECTAB PO SCH (08:22)
[2018-09-13] MEDS: CARBIDOPA/LEVODOPA 25/100MG TAB PO SCH ×3 (08:22→20:18)
[2018-09-13] MEDS: CEROVITE ADV FORMULA TAB PO SCH (08:22)
[2018-09-13] MEDS: DIVALPROEX EXTENDED RELEASE 500 MG TAB PO SCH ×2 (08:22→20:18)
[2018-09-13] MEDS: LIDOCAINE 5% 1 PATCH TD SCH ×2 (08:23→11:51)
[2018-09-13] MEDS ORDERED: MoRPHine SULFATE 4 MG/ML 1 ML CARP\\VIAL IV PRN (14:50)
--- NOTE | 2018-09-13 16:17 | Hospitalist Progress Note ---
Date of Service September 13, 2018 Assessment & Plan (1) Pain in right hip: (2) Ambulatory dysfunction: This is an 83-year-old male with a PMH of Parkinson's disease, bipolar disorder, HTN, HLD, hypothyroidism and other medical problems listed below who presents with right hip pain and difficulty ambulating x 2 weeks. Likely has right greater trochanteric bursitis -R hip XR without acute abnormalities Ortho consulted continue LIdoderm patch, PRN Tramadol PT/OT eval may need to transition to [facility] (3) Hyponatremia: Sodium of 129 initially in setting of dehydration given IV fluids Na 132 monitor (4) HTN (hypertension): slightly elevated likely due to pain -Continue home dose lisinopril (5) Parkinson's disease: Continue Sinemet TID Tremors seems to be controlled Ambulatory dysfunction is secondary to parkinsonism (6) Bipolar disorder: Stable. Continue Depakote, Zyprexa (7) HLD (hyperlipidemia): Continue statin DVT Ppx: SQ heparin Code status: FULL pre discussion with patient, at bedside PCP: Malka Dispo: Admitted to [facility]. Discharge planning ordered for possible rehab placement. PT OT eval in progress Subjective ff up for right hip pain seen sitting up in chair, comfortable states pain is improving, rates is at 2/10 denies radiation to the right leg, no numbness/paresthesias ambulated in the mims with PT today, denies worsening of pain no other symptoms Physical Exam 2 Vital Signs (Past 24 Hours): Last Vital Signs Temp 36.7 C 09/13/18 15:00 Pulse 72 09/13/18 15:00 Resp 20 09/13/18 15:00 BP 150/84 H 09/13/18 15:00 Pulse Ox 93 09/13/18 15:00 Physical Exam: General- oriented x 3, not in distress, speaks in sentences with no effort or accessory muscle use Eyes- anicteric Neck- no JVD Lungs- clear breath sounds bilaterally, no rales/wheezes Heart- normal rate, regular rhythm; no murmurs Abdomen- normal bowel sounds, nondistended, soft, nontender Extremities- right hip: no erythema/warmth/tenderness/edema back: no erythema/warmth/tenderness no pretibial edema, no calf tenderness Neuro- alert, oriented x 3; no gross focal neurologic deficits Skin- warm & dry Results & Data Laboratory Results Laboratory Results - last 24 hr 09/13/18 09/13/18 06:10 06:10 WBC 7.90 RBC 5.41 Hgb 17.8 Hct 50.7 MCV 93.7 MCH 32.9 MCHC 35.1 RDW Std Deviation 43.6 RDW Coeff of Dada 12.8 Plt Count 144 MPV 9.4 Sodium 132 L Potassium 4.7 Chloride 99 Carbon Dioxide 28 Anion Gap 5.0 BUN 15 Creatinine 0.95 Est Cr Clr Drug Dosing 72.0 Est GFR ( Amer) 84.9 Est GFR (Non-Af Amer) 73.2 BUN/Creatinine Ratio 15.5 Glucose 102 H Calcium 9.0
--- NOTE | 2018-09-13 17:05 | Consultation Report ---
DATE OF CONSULTATION: 09/13/2018 HISTORY: The patient is an 83-year-old white male with a several week history of right low back, hip pain radiating into his upper SI joint area. He denies having had a fall or particular injury to this area. X-rays revealed there to be evidence of some mild degenerative changes of his hip. No evidence of other abnormalities were noted. His clinical examination today is consistent with low-grade radiculopathy, SI joint dysfunction more than any type of hip bursitis. He has no pain or tenderness to his hip bursa. He has no pain with range of motion, internal and external rotation of his hip, hip flexion or extension. He is neurovascularly and neurologically intact to right lower extremity. His pain is really localized over sacroiliac joint. He relates his pain is better today than it has been in the last 2 days and he is doing better with it. At this point, I do not think any type of hip bursa injection is necessary as I think this is more consistent with a sacroiliac joint dysfunction. Would recommend to continue conservative management. If he does not have continued improvement, potentially the pain management, SI joint injection would be the next appropriate step. Agree with further assistance, please do not hesitate to let us know.
[2018-09-13] MEDS: SIMVASTATIN 20 MG TAB PO SCH (20:18)
[2018-09-13] MEDS: OLANZapine 5 MG TABLET PO SCH (20:18)
[2018-09-13] MEDS: POLYETHYLENE (MIRALAX) 17 GM PACK PO PRN (21:51)
[2018-09-13] MEDS: PSYLLIUM 58.6% POWDER PACKET PO PRN (22:19)
[2018-09-14] MEDS: TRAMADOL HCL 50 MG TABLET PO PRN ×3 (03:04→15:44)
[2018-09-14] MEDS: LEVOTHYROXINE SODIUM 75 MCG TABLET PO SCH (05:40)
[2018-09-14] MEDS: ACETAMINOPHEN 325 MG TAB PO PRN (07:18)
[2018-09-14] MEDS: DIVALPROEX EXTENDED RELEASE 500 MG TAB PO SCH ×2 (07:20→20:57)
[2018-09-14] MEDS: LISINOPRIL 40 MG TAB PO SCH (07:20)
[2018-09-14] MEDS: ASPIRIN 81 MG ECTAB PO SCH (07:20)
[2018-09-14] MEDS: CEROVITE ADV FORMULA TAB PO SCH (07:20)
[2018-09-14] MEDS: CARBIDOPA/LEVODOPA 25/100MG TAB PO SCH ×3 (07:21→20:56)
[2018-09-14] MEDS: FLUTICASONE PROPIONATE NA SPR 16 GM BTL NAE SCH (07:21)
[2018-09-14] MEDS: LIDOCAINE 5% 1 PATCH TD SCH (07:21)
[2018-09-14] MEDS: HEPARIN SOD 5,000 UNIT/0.5 ML VIAL SQ SCH ×2 (07:22→20:58)
--- NOTE | 2018-09-14 09:39 | Pain Management Consultation ---
Date of Consultation September 14, 2018 Assessment & Plan (1) Right lumbar radiculitis: * Recommending MRI of the lumbar spine to determine the etiology of the right lumbar radicular pain. Orders written. * Consider Medrol Dosepak. Will leave this up to the hospice discretion. * Recommend gabapentin 100 mg p.o. nightly today and if no side effects noted, recommend increasing to 10 mg p.o. 3 times daily. * Further recommendations based on findings in the MRI ordered. Patient may be a candidate for lumbar epidural steroid injections or lumbar transforaminal epidural injections based on findings on the MRI. These interventional procedures can be for performed as an outpatient and patient can be followed as outpatient [facility]. * In the meantime recommend continuing tramadol and Lidoderm patches. Present on Admission?: Yes (2) Ambulatory dysfunction: Present on Admission?: Yes (3) Parkinson's disease: Present on Admission?: Yes (4) BPH (benign prostatic hyperplasia): Present on Admission?: Yes History of Present Illness Attending Physician: Delia Peraza MD Mr. Juan C Ferreira is a 83-year-old male admitted to [facility] with amatory dysfunction and right-sided lateral flank/hip pain. He reports that without any known injury or inciting event, he started experiencing right lateral low back pain that radiates into the right lateral hip area and into anterior thigh up to the knee. He describes the pain is being constant aching sensation with sharp, stabbing and burning episodes. He rates his pain as being 4/10 when minimal and 10/10 when severe. Pain increases in intensity when he bears weight on the right lower extremity with attempts to ambulate more than several steps. When he is in supine position, or nonweightbearing position with the lower extremities, he appears to have less pain. He denies any bowel or bladder incontinence, leg weakness but reports feeling "unsteady" with his right leg over the last 2 weeks with ambulation. He denies any fevers, chills, night sweats, unexpected weight loss or constitutional symptoms associated with this pain. Denies any previous history of malignancy. He lives with his spouse and typically able to ambulate and navigate around the house without use of any assistive devices prior to recurrence of his pain. During this admission, he was treated with tramadol as needed for his pain and has used 2 doses yesterday. He also has Lidoderm patch placed over the right lateral hip/flank area with moderate efficacy. He has undergone x-ray imaging of his lumbar spine as well as his right hip. No acute pathology has been noted on imaging studies. Consultation was requested to consider SI joint injection. Allergies Allergy/AdvReac Type Severity Reaction Status Date / Time rofecoxib Allergy Mild ITCHING Verified 09/11/18 11:12 clonazepam Allergy Unknown Verified 09/11/18 11:12 imipramine Allergy Unknown Verified 09/11/18 11:12 risperidone Allergy Unknown Verified 09/11/18 11:12 thioridazine Allergy Unknown Verified 09/11/18 11:12 valproic acid AdvReac Severe unknown Verified 09/11/18 11:12 Ethanol Allergy Unknown unk Uncoded 09/11/18 11:12 Home Medications Home Medications Medication Instructions Recorded Confirmed Type aspirin 81 mg PO QAM 09/11/18 09/11/18 History carbidopa-levodopa 1 tab PO TID 09/11/18 09/11/18 History clobetasol 1 applic TOPICAL DIRECTED PRN 09/11/18 09/11/18 History divalproex 500 mg PO AMPM 09/11/18 09/11/18 History fluticasone [Flonase Allergy 2 spray INTRANASAL DAILY 09/11/18 09/11/18 History Relief] latanoprost (PF) 1 drp OPHTHALMIC (EYE) HS 09/11/18 09/11/18 History levothyroxine 75 mcg PO QAM 09/11/18 09/11/18 History lisinopril 40 mg PO DAILY 09/11/18 09/11/18 History multivitamin with minerals 1 tab PO DAILY 09/11/18 09/11/18 History olanzapine 5 mg PO HS 09/11/18 09/11/18 History psyllium husk [Metamucil] 1 dose PO HS PRN 09/11/18 09/11/18 History simvastatin 20 mg PO PM 09/11/18 09/11/18 History Patient History Medical History HLD (hyperlipidemia) (Chronic) HTN (hypertension) (Chronic) Bipolar disorder (Chronic) Parkinson's disease (Chronic) Allergic rhinitis (Chronic) BPH (benign prostatic hyperplasia) (Chronic) Secondary polycythemia (Chronic) RBBB (Chronic) 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) Dyslipidemia (Chronic) Incomplete bladder emptying (Chronic) Epilepsy Surgical History S/P TURP (status post transurethral resection of prostate) (Chronic) Family History Other CVA (cerebral vascular accident) Social History marital status: Current Living Situation: Spouse current occupational status: retired Other Information That Helps Us Care for You: No Feels Safe at Home: Yes Safety Concerns: Feels Safe At This Time Smoking Status: Never smoker Do You Dip or Chew Tobacco: No Second Hand Exposure: No Tobacco Cessation Education Requested by Patient: No Hx Alcohol Use: No Hx Substance Use: No Beliefs That Will Affect Care: None Communication Ability: Effective Review of Systems Constitutional: no fever, no chills, no sweats, no malaise and no weight loss Eyes: no photophobia Respiratory: no cough, no dyspnea, no pain on inspiration and no pain with cough Cardiovascular: no chest pain, no dyspnea and no orthopnea Gastrointestinal: no abdominal pain and no fecal incontinence Musculoskeletal: + back pain and + radicular pain Integumentary: no rash and no lesions Neurologic: as per Subjective / HPI; no gait abnormality, no localized weakness , no numbness and no paresthesia Psychiatric: no depression and no anxiety Hematologic / Lymphatic: no easy bleeding, no easy bruising, no coagulopathy, no night sweats and no unexplained weight loss Physical Exam 2 Vital Signs (Past 24 Hours): Last Vital Signs Temp 36.7 C 09/14/18 07:49 Pulse 90 09/14/18 09:15 Resp 20 09/14/18 07:49 BP 158/102 H 09/14/18 09:15 Pulse Ox 97 09/14/18 07:49 Constitutional: WD/WN, vitals as above healthy appearing; no acute distress Musculoskeletal: Spine: no lumbar spinal tenderness, no paraspinal tenderness , no pain with anterior-posterior compression, no pain with lateral compression , no sciatic notch tenderness, no sacroiliac joint abnormality (Provocative testing SI joints unremarkable.) and no sacral tenderness Extremities: strength 5/5 throughout (Patient emesis guarding in the right side due to right lateral flank pain) Straight leg raising associate with pretibial pain and right posterior thigh pain. Symptoms occur at 10 degrees elevation of the right lower extremity and worsened with Achilles stretch. Skin: no rashes, warm and dry no rashes and no ulcers Neurologic: deep tendon reflexes 2+ bilaterally and plantar reflexes intact bilaterally Hyperesthesia right pretibial region over the anterior medial aspect as well as right anterior thigh. Psychiatric: A+Ox3, euthymic affect Results & Data Diagnostic Findings L/S Spine Xray: IMPRESSION: Significant degenerative change. No acute process. Rt HipXray: No acute pathology.
[2018-09-14] MEDS ORDERED: GADOBUTROL 65ML VIAL IV PRN (15:21)
--- NOTE | 2018-09-14 15:36 | Magnetic Resonance Report ---
MRI OF THE LUMBAR SPINE WITH AND WITHOUT CONTRAST CLINICAL HISTORY: Right lumbar radiculopathy. COMPARISON STUDY: Lumbar spine radiographs September 11, 2018. TECHNIQUE: Utilizing a 1.5 Dary magnet and dedicated coil, multiplanar, multiecho imaging of the peter ar spine was performed before and after uneventful IV administration of 10 mL of Gadavist. FINDINGS: For purposes of numbering on this exam, the L5-S1 disc space is assigned to axial image 27 of 30. The re is 3 mm of anterolisthesis of L4 and L5. Vertebral body heights are maintained. A few Schmorl's no adam are noted. Minimal dextroscoliosis is noted. There is no intracanalicular mass, fluid collection or pathologic enhancement. Conus terminates at the mid L1 level. Paravertebral soft tissues are unrem arkable. L1-2: The central canal and neural foramen are patent. There is facet arthrosis. L2-3: There is mild disc bulge with facet arthrosis and ligamentous hypertrophy. There is mild narrow ing of the central canal and lateral recesses. L3-4: There is minimal disc bulge with ligamentous hypertrophy and facet arthrosis. Central canal is patent. There is mild narrowing of the left neural foramen. L4-5: There is mild anterolisthesis. Severe facet arthrosis with ligamentous hypertrophy is noted. Th ere is mild narrowing of the central canal and lateral recesses. There is moderate bilateral neural f oraminal stenosis. L5-S1: Central canal and neural foramen are patent. There is facet arthrosis. IMPRESSION: 1. Mild multilevel degenerative disc disease. Moderate to severe multilevel facet arthrosis most pron ounced at L4-L5. 2. Mild central canal narrowing at L4-L5. No severe central canal stenosis. 3. Moderate multilevel neural foraminal stenosis. 4. No compression fracture. Electronically signed by: Deng Ayala M.D. 09/14/2018 3:35 PM
[2018-09-14] MEDS ORDERED: AMLODIPINE BESYLATE 5 MG TAB PO PRN (16:27)
[2018-09-14] MEDS ORDERED: methylPREDNISolone 4 MG TAB, 6 DAY TAPER PO SCH (16:30)
[2018-09-14] MEDS: GABAPENTIN 100 MG CAP PO SCH (18:14)
[2018-09-14] MEDS: methylPREDNISolone 4 MG TAB PO SCH ×2 (18:15→20:52)
--- NOTE | 2018-09-14 18:26 | Hospitalist Progress Note ---
Date of Service September 14, 2018 Assessment & Plan (1) Pain in right hip: Likely secondary to lumbar radiculopathy (2) Ambulatory dysfunction: This is an 83-year-old male with a PMH of Parkinson's disease, bipolar disorder, HTN, HLD, hypothyroidism and other medical problems listed below who presents with right hip pain and difficulty ambulating x 2 weeks. Likely has right greater trochanteric bursitis -R hip XR without acute abnormalities Ortho consulted continue LIdoderm patch, PRN Tramadol PT/OT eval Pain management consulted Lumbar spine MRI showing: IMPRESSION: 1. Mild multilevel degenerative disc disease. Moderate to severe multilevel facet arthrosis most pronounced at L4-L5. 2. Mild central canal narrowing at L4-L5. No severe central canal stenosis. 3. Moderate multilevel neural foraminal stenosis. 4. No compression fracture. --We will start Medrol Dosepak and gabapentin Monitor for response Continue PT and OT (3) Hyponatremia: Sodium of 129 initially in setting of dehydration given IV fluids Na 132 monitor (4) HTN (hypertension): elevated likely due to pain Denies headache, dizziness, chest pain, shortness of breath -Add amlodipine as needed for now -Continue home dose lisinopril Monitor BP closely (5) Parkinson's disease: Continue Sinemet TID Tremors seems to be controlled Ambulatory dysfunction is secondary to parkinsonism (6) Bipolar disorder: Stable. Continue Depakote, Zyprexa (7) HLD (hyperlipidemia): Continue statin DVT Ppx: SQ heparin Code status: FULL pre discussion with patient, at bedside PCP: Malka Dispo: Admitted to [facility]. Discharge planning ordered for possible rehab placement. PT OT eval in progress Subjective Follow-up for back and right hip pain Patient just came back from MRI Seen resting in bed, sleeping but easily awakened States he has constant low back more on the right side radiating to his right anterior thigh today Denies paresthesias or numbness Denies dizziness, shortness of breath, chest pain, palpitations No other symptoms Physical Exam 2 Vital Signs (Past 24 Hours): Last Vital Signs Temp 36.5 C 09/14/18 15:00 Pulse 82 09/14/18 15:00 Resp 20 09/14/18 15:00 BP 164/96 H 09/14/18 15:00 Pulse Ox 93 09/14/18 15:00 Physical Exam: General- oriented x 3, not in distress, speaks in sentences with no effort or accessory muscle use Eyes- anicteric Neck- no JVD Lungs- clear breath sounds bilaterally Heart- normal rate, regular rhythm; no murmurs Abdomen- normal bowel sounds, nondistended, soft, nontender Extremities- no pretibial edema, no calf tenderness Neuro- alert, oriented x 3; no gross focal neurologic deficits Skin- warm & dry Results & Data Diagnostic Findings MRI OF THE LUMBAR SPINE WITH AND WITHOUT CONTRAST CLINICAL HISTORY: Right lumbar radiculopathy. COMPARISON STUDY: Lumbar spine radiographs September 11, 2018. TECHNIQUE: Utilizing a 1.5 Dary magnet and dedicated coil, multiplanar, multiecho imaging of the lumbar spine was performed before and after uneventful IV administration of 10 mL of Gadavist. FINDINGS: For purposes of numbering on this exam, the L5-S1 disc space is assigned to axial image 27 of 30. There is 3 mm of anterolisthesis of L4 and L5. Vertebral body heights are maintained. A few Schmorl's nodes are noted. Minimal dextroscoliosis is noted. There is no intracanalicular mass, fluid collection or pathologic enhancement. Conus terminates at the mid L1 level. Paravertebral soft tissues are unremarkable. L1-2: The central canal and neural foramen are patent. There is facet arthrosis. L2-3: There is mild disc bulge with facet arthrosis and ligamentous hypertrophy. There is mild narrowing of the central canal and lateral recesses. L3-4: There is minimal disc bulge with ligamentous hypertrophy and facet arthrosis. Central canal is patent. There is mild narrowing of the left neural foramen. L4-5: There is mild anterolisthesis. Severe facet arthrosis with ligamentous hypertrophy is noted. There is mild narrowing of the central canal and lateral recesses. There is moderate bilateral neural foraminal stenosis. L5-S1: Central canal and neural foramen are patent. There is facet arthrosis.
[2018-09-14] MEDS: SIMVASTATIN 20 MG TAB PO SCH (20:57)
[2018-09-14] MEDS: OLANZapine 5 MG TABLET PO SCH (20:57)
[2018-09-15] MEDS: TRAMADOL HCL 50 MG TABLET PO PRN (07:31)
[2018-09-15] MEDS: ASPIRIN 81 MG ECTAB PO SCH (07:31)
[2018-09-15] MEDS: CEROVITE ADV FORMULA TAB PO SCH (07:32)
[2018-09-15] MEDS: LISINOPRIL 40 MG TAB PO SCH (07:32)
[2018-09-15] MEDS: GABAPENTIN 100 MG CAP PO SCH (07:32)
[2018-09-15] MEDS: LEVOTHYROXINE SODIUM 75 MCG TABLET PO SCH (07:32)
[2018-09-15] MEDS: CARBIDOPA/LEVODOPA 25/100MG TAB PO SCH ×2 (07:32→12:57)
[2018-09-15] MEDS: LIDOCAINE 5% 1 PATCH TD SCH (07:33)
[2018-09-15] MEDS: DIVALPROEX EXTENDED RELEASE 500 MG TAB PO SCH (07:34)
[2018-09-15] MEDS: FLUTICASONE PROPIONATE NA SPR 16 GM BTL NAE SCH (07:34)
[2018-09-15] MEDS: HEPARIN SOD 5,000 UNIT/0.5 ML VIAL SQ SCH (07:40)
[2018-09-15] MEDS: methylPREDNISolone 4 MG TAB PO SCH ×2 (07:44→12:57)
--- NOTE | 2018-09-15 09:08 | Pain Management Progress Note ---
Date of Service September 15, 2018 Assessment & Plan (1) Right lumbar radiculitis: * Continue Medrol Dosepak, gabapentin current regimen of tramadol. * Patient may be discharged when appropriate will be follow-up at [facility] pain management clinic. Present on Admission?: Yes Subjective Mr. Ferreira reports improved pain this morning. Reports minimal pain at the present time but has not ambulated yet. Denies any new symptoms. Denies any side effects to the medications. Pain Assessment Pain Assessment Full Body Front + Back: 2 1. Right anterior thigh pain 2. Right proximal buttock/lateral buttock pain Physical Exam 2 Vital Signs (Past 24 Hours): Last Vital Signs Temp 36.5 C 09/15/18 07:52 Pulse 89 09/15/18 07:52 Resp 18 09/15/18 07:52 BP 125/88 09/15/18 07:52 Pulse Ox 90 09/15/18 07:52 Constitutional: no acute distress Musculoskeletal: Spine: no lumbar spinal tenderness, no paraspinal tenderness , no pain with anterior-posterior compression, no pain with lateral compression , no sciatic notch tenderness, no sacroiliac joint abnormality (Provocative testing SI joints unremarkable.) and no sacral tenderness Extremities: strength 5/5 throughout (Patient emesis guarding in the right side due to right lateral flank pain) Straight leg raising positive right side Skin: no rashes, warm and dry no rashes and no ulcers Neurologic: deep tendon reflexes 2+ bilaterally and plantar reflexes intact bilaterally Results & Data Diagnostic Findings MRI lumbar spine: FINDINGS: For purposes of numbering on this exam, the L5-S1 disc space is assigned to axial image 27 of 30. There is 3 mm of anterolisthesis of L4 and L5. Vertebral body heights are maintained. A few Schmorl's nodes are noted. Minimal dextroscoliosis is noted. There is no intracanalicular mass, fluid collection or pathologic enhancement. Conus terminates at the mid L1 level. Paravertebral soft tissues are unremarkable. L1-2: The central canal and neural foramen are patent. There is facet arthrosis. L2-3: There is mild disc bulge with facet arthrosis and ligamentous hypertrophy. There is mild narrowing of the central canal and lateral recesses. L3-4: There is minimal disc bulge with ligamentous hypertrophy and facet arthrosis. Central canal is patent. There is mild narrowing of the left neural foramen. L4-5: There is mild anterolisthesis. Severe facet arthrosis with ligamentous hypertrophy is noted. There is mild narrowing of the central canal and lateral recesses. There is moderate bilateral neural foraminal stenosis. L5-S1: Central canal and neural foramen are patent. There is facet arthrosis. IMPRESSION: 1. Mild multilevel degenerative disc disease. Moderate to severe multilevel facet arthrosis most pronounced at L4-L5. 2. Mild central canal narrowing at L4-L5. No severe central canal stenosis. 3. Moderate multilevel neural foraminal stenosis. 4. No compression fracture. Electronically signed by: Deng Ayala M.D. 09/14/2018 3:35 PM Dictated: 09/14/18 1527 Transcribed: 09/14/18 1527
--- NOTE | 2018-09-15 13:21 | Hospitalist Progress Note ---
Date of Service September 15, 2018 Assessment & Plan (1) Pain in right hip: Likely secondary to lumbar radiculopathy (2) Ambulatory dysfunction: This is an 83-year-old male with a PMH of Parkinson's disease, bipolar disorder, HTN, HLD, hypothyroidism and other medical problems listed below who presents with right hip pain and difficulty ambulating x 2 weeks. R hip XR without acute abnormalities Ortho consulted Dr. Lowe initially felt to be from SI joint dysfunction continued on Lidoderm patch, PRN Tramadol PT/OT eval recommend consult pain management for possible steroid injection Pain management consulted Dr. Mclean Lumbar spine MRI showing: IMPRESSION: 1. Mild multilevel degenerative disc disease. Moderate to severe multilevel facet arthrosis most pronounced at L4-L5. 2. Mild central canal narrowing at L4-L5. No severe central canal stenosis. 3. Moderate multilevel neural foraminal stenosis. 4. No compression fracture. -- pain felt to be from Lumbar Radiculopathy -- recommend Medrol Dosepak and gabapentin 100mg HS- uptitrate slowly as needed -- patient reports further improvement able to tolerate PT/OT -- plan: finish Medrol Dosepak continue Gabapentin 100mg HS Tramadol PRN PT/OT eval outpatient follow up with [facility] c/o Dr. Mclean in 1-2 weeks -- fall precautions (3) Hyponatremia: Sodium of 129 initially in setting of dehydration given IV fluids Na 132 monitor (4) HTN (hypertension): elevated likely due to pain Denies headache, dizziness, chest pain, shortness of breath given PRN Amlodipine improved -Continue home dose lisinopril Monitor BP closely (5) Parkinson's disease: Continue Sinemet TID (6) Bipolar disorder: Stable. Continue Depakote, Zyprexa (7) HLD (hyperlipidemia): Continue statin DVT Ppx: SQ heparin Code status: FULL pre discussion with patient, at bedside PCP: Malka Dispo: transfer to [facility] outpatient follow up with [facility] c/o Dr. Mclean in 1-2 weeks ff up with PCP 1 week after discharge from [facility] Subjective ff up for back/leg pain seen resting in bedside chair comfortable, in good spirits states he feels better overall able to sleep well last night pain is much better, mild to none no dizziness, chest pain, dyspnea, palpitations no other symptoms states he is ready for discharge to [facility] Physical Exam 2 Vital Signs (Past 24 Hours): Last Vital Signs Temp 36.5 C 09/15/18 07:52 Pulse 89 09/15/18 07:52 Resp 18 09/15/18 07:52 BP 125/88 09/15/18 07:52 Pulse Ox 99 09/15/18 13:00 Physical Exam: General- oriented x 3, not in distress, speaks in sentences with no effort or accessory muscle use Eyes- anicteric Neck- no JVD Lungs- clear breath sounds bilaterally Heart- normal rate, regular rhythm; no murmurs Abdomen- normal bowel sounds, nondistended, soft, nontender Extremities- Back/Hip/Leg- no edema/warmth/tenderness no pretibial edema, no calf tenderness Neuro- alert, oriented x 3; no gross focal neurologic deficits Skin- warm & dry
--- NOTE | 2018-09-15 13:46 | Discharge Summary ---
Date of Service September 15, 2018 Admission HPI Per Admitting Provider This is an 83-year-old male with a PMH of Parkinson's disease, bipolar disorder , HTN, HLD, hypothyroidism and other medical problems listed below who presents with right hip pain and difficulty ambulating x 2 weeks. At baseline, patient ambulates with a walker and has some dysfunction due to Parkinson's disease. Per , patient has seemed generally weak and fatigued over the past few weeks , and sleep has been compromised in the setting of right hip pain. PO intake has decreased since patient is not able to easily ambulate. Denies any weakness or paresthesias in right lower extremity. No recent falls. does not feel like she can care for patient at home with current state of generalized weakness. Patient has required acute inpatient rehab at [facility] in the past which has significantly helped patient's ambulatory status. Hip pain has resolved with lidocaine patch on affected area. Denies any fever, chills, lightheadedness, headache, chest pain, palpitations, shortness of breath , abdominal pain, nausea, vomiting, dysuria, diarrhea or constipation. Takes all medications as scheduled. Follows with neurology for Parkinson's disease. Admission Exam Per Admitting Provider Vital Signs (Past 24 Hours): Last Vital Signs Temp 36.9 C 09/11/18 11:17 Pulse 61 09/11/18 12:50 Resp 20 09/11/18 12:50 BP 138/76 09/11/18 12:50 Pulse Ox 93 09/11/18 12:50 Physical Exam: General Appearance: WD/WN, no apparent distress, resting comfortably Head: normocephalic, atraumatic Eyes: normal inspection, PERRL, EOMI ENT: hearing grossly normal, pharynx normal (moist mucous membranes) Neck: supple, no JVD, no adenopathy Respiratory/Chest: lungs clear to auscultation. No wheezes, rales or rhonci. No respiratory distress or accessory muscle use Cardiovascular: regular rate, rhythm, no murmur, normal peripheral pulses Abdomen/GI: normal bowel sounds, soft, non-tender to palpation Extremities/Musculoskelatal: normal inspection, no calf tenderness, normal capillary refill, no pedal edema Neurologic/Psych: alert, normal mood/affect, oriented x 3 Skin: normal color, warm/dry Principal Diagnosis LUMBAR RADICULOPATHY Discharge Exam Vital Signs (Past 24 Hours): Last Vital Signs Temp 36.5 C 09/15/18 07:52 Pulse 89 09/15/18 07:52 Resp 18 09/15/18 07:52 BP 125/88 09/15/18 07:52 Pulse Ox 99 09/15/18 13:00 Physical Exam: General- oriented x 3, not in distress, speaks in sentences with no effort or accessory muscle use Eyes- anicteric Neck- no JVD Lungs- clear breath sounds bilaterally Heart- normal rate, regular rhythm; no murmurs Abdomen- normal bowel sounds, nondistended, soft, nontender Extremities- Back/Hip/Leg- no edema/warmth/tenderness no pretibial edema, no calf tenderness Neuro- alert, oriented x 3; no gross focal neurologic deficits Skin- warm & dry Discharge Data Allergies Allergy/AdvReac Type Severity Reaction Status Date / Time rofecoxib Allergy Mild ITCHING Verified 09/11/18 11:12 clonazepam Allergy Unknown Verified 09/11/18 11:12 imipramine Allergy Unknown Verified 09/11/18 11:12 risperidone Allergy Unknown Verified 09/11/18 11:12 thioridazine Allergy Unknown Verified 09/11/18 11:12 valproic acid AdvReac Severe unknown Verified 09/11/18 11:12 Ethanol Allergy Unknown unk Uncoded 09/11/18 11:12 Consultations 09/12/18 11:51 Consult Orthopedic Surgery Routine 09/13/18 18:06 Consult Pain Management Routine 09/11/18 15:00 ED Decision to Admit Stat 09/11/18 17:27 Consult Case Management - Discharge Planning Routine Ordered Studies 09/14/18 10:13 MR lumbar spine wo/w con Routine MRI OF THE LUMBAR SPINE WITH AND WITHOUT CONTRAST CLINICAL HISTORY: Right lumbar radiculopathy. COMPARISON STUDY: Lumbar spine radiographs September 11, 2018. TECHNIQUE: Utilizing a 1.5 Dary magnet and dedicated coil, multiplanar, multiecho imaging of the lumbar spine was performed before and after uneventful IV administration of 10 mL of Gadavist. FINDINGS: For purposes of numbering on this exam, the L5-S1 disc space is assigned to axial image 27 of 30. There is 3 mm of anterolisthesis of L4 and L5. Vertebral body heights are maintained. A few Schmorl's nodes are noted. Minimal dextroscoliosis is noted. There is no intracanalicular mass, fluid collection or pathologic enhancement. Conus terminates at the mid L1 level. Paravertebral soft tissues are unremarkable. L1-2: The central canal and neural foramen are patent. There is facet arthrosis. L2-3: There is mild disc bulge with facet arthrosis and ligamentous hypertrophy. There is mild narrowing of the central canal and lateral recesses. L3-4: There is minimal disc bulge with ligamentous hypertrophy and facet arthrosis. Central canal is patent. There is mild narrowing of the left neural foramen. L4-5: There is mild anterolisthesis. Severe facet arthrosis with ligamentous hypertrophy is noted. There is mild narrowing of the central canal and lateral recesses. There is moderate bilateral neural foraminal stenosis. L5-S1: Central canal and neural foramen are patent. There is facet arthrosis. IMPRESSION: 1. Mild multilevel degenerative disc disease. Moderate to severe multilevel facet arthrosis most pronounced at L4-L5. 2. Mild central canal narrowing at L4-L5. No severe central canal stenosis. 3. Moderate multilevel neural foraminal stenosis. 4. No compression fracture. Electronically signed by: Deng Ayala M.D. 09/14/2018 3:35 PM RIGHT HIP 2 VIEWS CLINICAL HISTORY: Right hip pain. FINDINGS: AP and frog-leg views of the right hip are compared to study dated . The skeletal structures are osteopenic. No fracture is identified involving the right hip or the visualized right hemipelvis. Mild arthritic change and joint space narrowing is seen in the hip. Enthesophytes arise from the right anterior superior iliac spine. The overlying soft tissues are normal in appearance. There is atherosclerotic calcification of the right femoral artery. Mild sclerotic change is noted in the sacroiliac joints. IMPRESSION: No acute bony abnormality is identified in the right hip. Electronically signed by: Jose Alvarado M.D. 09/11/2018 12:22 PM XR lumbar spine min 4V routine HISTORY: Pain right hip pain COMPARISON: None. FINDINGS: No evidence for compression deformity. No subluxation. Considerable degenerative disc change throughout. Degenerative change of vertebral endplates throughout with considerable anterior osteophytic change from L1 through L3. IMPRESSION: Significant degenerative change. No acute process. The above report was generated using voice recognition software. It may contain grammatical, syntax or spelling errors. Electronically signed by: Brandan Nunez M.D. 09/11/2018 12:26 PM Hospital Course (1) Pain in right hip: Likely secondary to lumbar radiculopathy management noted below (2) Ambulatory dysfunction: This is an 83-year-old male with a PMH of Parkinson's disease, bipolar disorder, HTN, HLD, hypothyroidism and other medical problems listed below who presents with right hip pain and difficulty ambulating x 2 weeks. R hip XR without acute abnormalities Ortho consulted- Dr. Lowe initially felt to be from SI joint dysfunction continued on Lidoderm patch, PRN Tramadol PT/OT eval recommend consult pain management for possible steroid injection Pain management consulted- Dr. Bose Lumbar spine MRI showing: IMPRESSION: 1. Mild multilevel degenerative disc disease. Moderate to severe multilevel facet arthrosis most pronounced at L4-L5. 2. Mild central canal narrowing at L4-L5. No severe central canal stenosis. 3. Moderate multilevel neural foraminal stenosis. 4. No compression fracture. -- pain felt to be from Lumbar Radiculopathy -- recommend Medrol Dosepak and gabapentin 100mg HS- uptitrate slowly as needed -- patient reports further improvement able to tolerate PT/OT -- plan: finish Medrol Dosepak continue Gabapentin 100mg HS Tramadol PRN PT/OT eval outpatient follow up with [facility] c/o Dr. Bose in 1-2 weeks -- fall precautions (3) Hyponatremia: Sodium of 129 initially in setting of dehydration given IV fluids Na 132 monitor (4) HTN (hypertension): elevated likely due to pain Denies headache, dizziness, chest pain, shortness of breath given PRN Amlodipine improved -Continue home dose lisinopril Monitor BP closely (5) Parkinson's disease: Continue Sinemet TID (6) Bipolar disorder: Stable. Continue Depakote, Zyprexa (7) HLD (hyperlipidemia): Continue statin DVT Ppx: SQ heparin Code status: FULL pre discussion with patient, at bedside PCP: Malka Dispo: transfer to [facility] outpatient follow up with [facility] c/o Dr. Bose in 1-2 weeks ff up with PCP 1 week after discharge from [facility] Total Time Total Time Spent Total Time Spent (In Minutes): 40 minutes Discharge Plan Discharge Items Patient Disposition: Transfer Inpatient Rehab Fac Reason For Visit: R HIP PAIN,GENERALIZED WEAKNESS Discharge Diagnosis: LUMBAR RADICULOPATHY Discharge Goals: Decrease discomfort, Diagnostic testing and Therapeutic intervention Activity: As commented below Activity Comment: WITH ASSISTANCE, FALL PRECAUTIONS, ALWAYS USE ROLLING WALKER Lifting: Wait until after follow-up appointment Exercise/Sports: Wait until after follow-up appointment Driving/Machine Use Comment: NO DRIVING Non-emergency contact: Primary Care Provider Call non-emergency contact if: you have any medication questions, your symptoms worsen, your pain is not controlled, your pain is worsening, your pain is unusual for you, your pain is concerning for you and you have a fever Follow-up/Referrals: Fer Bose MD, FIPP [Physician] - Anthony Ace DO [Primary Care Provider] - Diet: Heart Healthy Addtl Provider Instructions: FOLLOW UP WITH PAIN MANAGEMENT SPECALIST DR. BOSE IN 1-2 WEEKS. FOLLOW UP WITH PCP DR. ACE 1 WEEK AFTER DISCHARGE FROM [facility]. PLEASE REFER TO ACCOMPANYING HOSPITAL DISCHARGE SUMMARY FOR FURTHER DETAILS. Prescriptions: New gabapentin 100 mg Capsule 100 mg PO HS 30 Days Qty: 30 RF: 0 tramadol 50 mg tablet 50 mg PO Q6H PRN (Reason: Pain) 7 Days Qty: 10 RF: 0 lidocaine 5 % Adhesive Patch,Medicated 1 patch Transdermal QAM 14 Days Qty: 14 RF: 0 Continue olanzapine 5 mg Tablet 5 mg PO HS RF: 0 aspirin 81 mg Tablet,Delayed Release (Dr/Ec) 81 mg PO QAM RF: 0 levothyroxine 75 mcg Tablet 75 mcg PO QAM RF: 0 simvastatin 20 mg Tablet 20 mg PO PM RF: 0 divalproex 500 mg Tablet Extended Release 24 Hr 500 mg PO AMPM RF: 0 clobetasol 0.05 % Ointment 1 applic TOPICAL DIRECTED PRN (Reason: jock itch) RF: 0 multivitamin with minerals Tablet 1 tab PO DAILY RF: 0 carbidopa-levodopa 25-100 mg Tablet 1 tab PO TID RF: 0 lisinopril 40 mg Tablet 40 mg PO DAILY RF: 0 fluticasone [Flonase Allergy Relief] 50 mcg/actuation [place],Suspension 2 spray INTRANASAL DAILY RF: 0 psyllium husk [Metamucil] 3.4 gram/5.4 gram Powder 1 dose PO HS PRN (Reason: Constipation) RF: 0 latanoprost (PF) 0.005 % Drops 1 drp OPHTHALMIC (EYE) HS RF: 0 Stand-Alone Forms: [facility] Discharge Orders: Discharge Order (Routine); Ordered 09/15/18 Ordered By: Robles Morataya Skilled Items Patient informed of condition?: Yes DNR: No Discharge Level of Care: Acute rehab Communicable Disease: No Discharge Prognosis: Improving Admission Data Admit Date/Time: 09/11/18 15:55 Attending Provider: Delia Peraza Admit Provider: Delia Peraza Primary Care Provider: Anthony Ace Other Providers: Delia Peraza ; Tone Dominguez ; Jose Liriano ; Sebastian Hurst ; Diandra Harris Thomas J ; Shonda Avina ; Mj Rust ; Brandan Woody ; Robles Yeager ; Oleg Benitez Jr ; Brandan Stewart ; Dieudonne Shah. ; Robles Hutchinson ; Guille Pedersen ; Mohan Man ; Orlando Fox ; Babak Villavicencio ; Kervin Bill ; Talat Henderson ; Julian Felix ; Shonda Leal ; Fredo Ashton ; Anthony Schmitt ; Abdulaziz Goldman ; Hitesh Ross ; Kendy Hurst Service: Telemetry
[2018-09-15] MEDS ORDERED: methylPREDNISolone 4 MG TAB PO SCH (21:00)
[2018-09-16] MEDS ORDERED: methylPREDNISolone 4 MG TAB PO SCH (07:00)
[2018-09-17] MEDS ORDERED: methylPREDNISolone 4 MG TAB PO SCH (07:00)
[2018-09-18] MEDS ORDERED: methylPREDNISolone 4 MG TAB PO SCH (07:00)
[2018-09-19] MEDS ORDERED: methylPREDNISolone 4 MG TAB PO SCH (07:00)
== END 2018-09-15 14:45 | DRG 552 ==
LOC: ED 11:08 → 2S 15:55 → 4E 09-12 13:07

== ENCOUNTER 2019-07-25 14:39 | Inpatient (IN) ==
--- NOTE | 2019-07-25 15:44 | XRay Report ---
XR chest 1V portable CLINICAL HISTORY: 84 years-old Male presenting with ams. TECHNIQUE: Portable upright AP view of the chest was obtained. COMPARISON: 01/19/2017. FINDINGS: Atherosclerosis of the aortic arch. Cardiac silhouette normal in size. Minimal left basilar opacity. Architectural distortion at the left lung base. No new focal opacity. No large effusion or pneumothor ax. Several posterior upper left ribs demonstrate chronic fracture deformities as on prior. Degenerat phuong changes of the spine. Upper abdomen normal. IMPRESSION: 1. 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 No acute cardiopulmonary dis ease. Electronically signed by: Kervin Maher M.D. 07/25/2019 3:43 PM
[2019-07-25 16:11] LABS: Basophils # (auto) 0.01 K/uL (0-0.2); Basophils % (auto) 0.1 %; Hemoglobin 18.5 g/dL (14.0-18.0); Immature Granulocytes # (auto) 0.01 K/uL (0.00-0.02); Immature Granulocytes % (auto) 0.1 %; Lymphocytes # (auto) 0.83 K/uL (1.2-3.4); Lymphocytes % (auto) 12.3 %; Mean Corpuscular Hemoglobin 33.9 pg (25-34); Mean Corpuscular Hgb Conc 34.3 g/dL (32-36); Mean Corpuscular Volume 99.1 fL (80-100); Mean Platelet Volume 10.2 fL (7.4-10.4); Monocytes # (auto) 0.72 K/uL (0.11-0.59); Monocytes % (auto) 10.7 %; Neutrophils # (auto) 5.18 K/uL (1.4-6.5); Neutrophils % (auto) 76.8 %; Platelet Count 117 K/uL (130-400); RDW Coefficient of Variation 13.2 % (11.5-14.5); RDW Standard Deviation 47.4 fL (36.4-46.3); Red Blood Count 5.45 M/uL (4.7-6.1); White Blood Count 6.75 K/uL (4.8-10.8)
--- NOTE | 2019-07-25 16:19 | CT Scan Report ---
CT head/brain wo con CLINICAL HISTORY: 84 years-old Male with ams. Acute confusion with altered mental status TECHNIQUE: Multiple axial CT images of the head were obtained without contrast. A dose lowering tech nique was utilized adhering to the principles of ALARA. CT DOSE: 614.27 mGy.cm COMPARISON: Head CT 01/19/2017 FINDINGS: No acute intracranial hemorrhage, midline shift, intracranial mass, hydrocephalus, territorial ischem ia or abnormal extra-axial collection. Age-related involutional changes with ex vacuo ventriculomegal y. Patchy white matter hypodensity suggest chronic microvascular ischemic disease. The calvarium is intact. Mild mucosal thickening of the ethmoid sinuses. The mastoid air cells and r emaining paranasal sinuses are clear. Soft tissues and orbits are unremarkable. IMPRESSION: No acute intracranial abnormality. The above report was generated using voice recognition software. It may contain grammatical, syntax o r spelling errors. Electronically signed by: Vipin Esparza M.D. 07/25/2019 4:18 PM
[2019-07-25 16:24] LABS: Partial Thromboplastin Time 25.9 Seconds (21.0-31.0); Prothrombin Time 10.3 Seconds (9.0-12.0)
[2019-07-25 16:29] LABS: Calcium 9.9 mg/dl (8.5-10.1); Creatinine Clr Calc Pharmacy 60.4 ml/min; Est GFR (African American) 69.1; Est GFR (Non-African American) 59.6; Potassium 5.2 mmol/L (3.5-5.1)
[2019-07-25 16:40] LABS: Influenza A virus by PCR Neg for Influ A (Neg); Influenza B virus by PCR Neg for Influ B (Neg)
[2019-07-25 16:54] LABS: Magnesium 2.3 mg/dl (1.8-2.4)
[2019-07-25 16:59] LABS: Appearance Urine Clear (Clear); Bacteria Urine Automated Negative (Negative); Bilirubin Urine Negative (Negative); Blood Urine Negative (Negative); Cast Urine Automated 0 /lpf (0-5); Color Urine Yellow; Glucose Urine UA Negative (Negative); Ketones Urine Negative (Negative); Leukocyte Esterase Urine Negative (Negative); Nitrite Urine Negative (Negative); RBC Urine Automated 0-4 /hpf (0-4); Specific Gravity Urine 1.017 (1.000-1.030); Urobilinogen Urine Negative (Negative); WBC Urine Automated 0 /hpf (0-5)
[2019-07-25 17:00] LABS: Protein Urine Trace (Negative)
[2019-07-25 17:01] LABS: Sulfosalicylic Acid Urine Positive (Negative)
--- NOTE | 2019-07-25 17:51 | History & Physical Report ---
Date of Service July 25, 2019 Assessment & Plan (1) Altered mental status: This is an 84-year-old male with a PMH of Parkinson's disease, bipolar disorder, hypertension, RBBB, LAFB, and other medical problems listed below who presents with worsening weakness and confusion since this morning. -Likely progression of Parkinson's disease with some dementia present. No evidence of delirium -No acute lab abnormalities, urinalysis normal, CT head without intracranial abnormality, CXR without acute cardiopulmonary abnormality -Monitor. Likely to need placement as does not feel she can adequately continue caring for patient at their home (2) Weakness: Worsening weakness in the setting of Parkinson's disease -No focal neurological deficits noted -Ambulates with walker at baseline, requires help from at home -PT/OT evaluation, likely need for rehab placement (3) Parkinson's disease: Continue carbidopa levodopa (4) Bipolar disorder: Depakote level pending -Plan to continue home Depakote dose twice daily (5) HTN (hypertension): Will hold Lisinopril tomorrow in setting of hyperkalemia of 5.2. Recently noted by PCP to have hyperkalemia so lisinopril dose was reduced -Hydralazine Q6H PRN for SBP >170 (6) HLD (hyperlipidemia): Continue statin DVT Ppx: SQ heparin Code status: FULL per discussion with patient and PCP: Malka Dispo: Admitted to med/surg. Discharge planning ordered. Patient seen in collaboration with Dr. Peraza. Please see addendum. History of Present Illness Chief Complaint: Confusion, weakness Primary Care Provider: Anthony Ace, DO This is an 84-year-old male with a PMH of Parkinson's disease, bipolar disorder, hypertension, RBBB, LAFB, and other medical problems listed below who presents with worsening weakness and confusion since this morning. Patient had difficulty getting out of bed this morning as well as transferring out of chair. Lives with who helps patient with ADLs but with her own health constraints, she does not feel that she is strong enough to to continue to help him. Also notes that patient was confused since this morning, not understanding where he was or why he was me to the hospital. Also endorses shaking of bilateral upper extremities, which is not his baseline with Parkinson's. Denies any pain. Denies any fever, chills, lightheadedness, visual changes, chest pain, palpitations, shortness of breath, nausea, vomiting, abdominal pain, dysuria, diarrhea or constipation. interested in placement for patient as well as therapy. Patient has benefited from admissions to [facility] in the past for help with ambulation. Ambulates with walker at baseline. Allergies Allergy/AdvReac Type Severity Reaction Status Date / Time rofecoxib Allergy Mild ITCHING Verified 06/08/19 10:56 clonazepam Allergy Unknown Unknown Verified 07/25/19 16:20 fluphenazine Allergy Unknown Unknown Verified 07/25/19 16:20 imipramine Allergy Unknown Unknown Verified 07/25/19 16:20 lovastatin Allergy Unknown Unknown Verified 07/25/19 16:20 risperidone Allergy Unknown Unknown Verified 07/25/19 16:20 thioridazine Allergy Unknown Unknown Verified 07/25/19 16:20 valproic acid AdvReac Severe unknown Verified 06/08/19 10:56 pseudoephedrine AdvReac Unknown Unknown Verified 07/25/19 16:20 Ethanol Allergy Unknown unk Uncoded 06/08/19 10:56 Home Medications Home Medications Medication Instructions Recorded Confirmed Type carbidopa-levodopa 1 tab PO TID 09/11/18 07/25/19 History divalproex 500 mg PO AMPM 09/11/18 07/25/19 History fluticasone propionate [Flonase 2 spray INTRANASAL DAILY 09/11/18 07/25/19 History Allergy Relief] latanoprost (PF) 1 drp OPB HS 09/11/18 07/25/19 History levothyroxine 75 mcg PO QAM 09/11/18 07/25/19 History olanzapine 5 mg PO HS 09/11/18 07/25/19 History lisinopril 20 mg PO DAILY 06/08/19 07/25/19 History acetaminophen 1,000 mg PO Q8H PRN 07/25/19 07/25/19 History aspirin [Aspir-81] 81 mg PO DAILY 07/25/19 07/25/19 History gabapentin 100 mg PO DAILY 07/25/19 07/25/19 History lidocaine 1 patch TOPICAL DAILY PRN 07/25/19 07/25/19 History multivitamin 1 tab PO DAILY 07/25/19 07/25/19 History polyethylene glycol 3350 [Miralax] 17 g PO DAILY PRN 07/25/19 07/25/19 History psyllium husk 0.4 g PO DAILY 07/25/19 07/25/19 History simvastatin 20 mg PO PM 07/25/19 07/25/19 History Past Med/Surg History Medical History (Updated 07/25/19 @ 20:06 by Eliz Mcintosh PA-C) 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) Bipolar disorder (Chronic) BPH (benign prostatic hyperplasia) Dyslipidemia HLD (hyperlipidemia) (Chronic) HTN (hypertension) (Chronic) LAFB (left anterior fascicular block) (Chronic) Parkinson's disease RBBB (Chronic) Secondary polycythemia Surgical History S/P TURP (status post transurethral resection of prostate) Family History Other Stroke Social History Preferred Language: Nepali Communication Ability: Effective Hearing Ability: Hard of Hearing Loss Prevention Manager Required: No Beliefs That Will Affect Care: None marital status: Current Living Situation: Spouse current occupational status: retired Other Information That Helps Us Care for You: Yes ( unable to care for pt) Feels Safe at Home: No Is there a partner from a previous relationship who is making you feel unsafe now?: No Any Concerns about Your Family Situation: Yes (needs placement. weak/near falls at home) Would You Like to Speak to Someone About Your Situation: Yes Safety Concerns: Afraid for Self Smoking Status: Never smoker Do You Dip or Chew Tobacco: No ; Second Hand Exposure: No ; Hx Alcohol Use: No Hx Substance Use: No Review of Systems Review of Systems: At least ten systems reviewed and negative except as noted in the HPI. Physical Exam Physical Exam: General Appearance: WD/WN, vitals as above, NAD, pleasant, chronically ill appearing Head: normocephalic, atraumatic Eyes: normal inspection, PERRL, conjunctivae normal, anicteric sclerae ENT: external ear and nose normal, oropharynx normal Neck: trachea midline, no thyromegaly normal visual inspection Respiratory: normal respiratory effort, lungs clear to auscultation, no wheeze, rales, rhonchi. Normal insp/exp effort, no accessory muscle use Cardiovascular: regular rate, rhythm, no murmur, normal peripheral pulses. Vessels: no JVD or carotid bruit Chest: normal inspection of chest Abdomen/GI: normal bowel sounds, soft, nontender, no hepatosplenomegaly Extremities/Musculoskelatal: no cyanosis or clubbing, extremities motor strength 5/5 Neurologic: PERRL, EOMI, accommodation nl, no face palsy, no dysarthria, CN's II-XI intact bilaterally and moves all extremities. + BUE tremors Psychiatric: A+O to person and place, not to time. Euthymic affect Skin: no rashes, normal color, warm/dry Results & Data Vital Signs (Past 12 Hours) Vital Signs Temp Pulse Pulse Resp BP BP Pulse Ox 07/25/19 16:36 82 18 152/82 H 96 07/25/19 15:54 97 07/25/19 14:48 36.7 C 82 18 144/78 H 95 Laboratory Results Short CBC 07/25/19 Range/Units 15:46 WBC 6.75 (4.8-10.8) K/uL Hgb 18.5 H (14.0-18.0) g/dL Hct 54.0 H (42-52) % Plt Count 117 L (130-400) K/uL BMP 07/25/19 15:46 Sodium 134 L Potassium 5.2 H Chloride 99 Carbon Dioxide 28 BUN 17 Creatinine 1.12 Glucose 103 H Calcium 9.9 Urine 07/25/19 Range/Units 16:30 Urine Color Yellow Urine Appearance Clear (Clear) Urine pH 8.0 H (4.5-7.5) Ur Specific [place] 1.017 (1.000-1.030) Urine Protein Trace H (Negative) Urine Glucose (UA) Negative (Negative) Diagnostic Findings CT head: IMPRESSION: No acute intracranial abnormality. CXR: IMPRESSION: 1. 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 No acute cardiopulmonary disease. Code Status & VTE Plan VTE Prophylaxis Plan VTE Prophylaxis will be ordered: Yes Supervising Physician Co-Signing Physician Notes Attending addendum The patient was seen and examined in the medical floor He has significant past medical history including Parkinson's disease He complains to have weak legs and increasing shakes and his is not been able to take care of him at home He denies any chest pain and/or palpitation, denies any abdominal pain nausea and/or vomiting On examination No apparent distress at rest Has resting tremor from Parkinson's disease Hemodynamically stable with blood pressure on the upper side Chest-decreased breath sounds but otherwise clear Heart-S1-S2, regular Abdomen-benign Extremities-no edema 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
--- NOTE | 2019-07-25 17:55 | Emergency Department Note ---
Entered by Nicky Abbott acting as a scribe for History of Present Illness General Chief complaint: Confusion Time Seen by Provider: 07/25/19 15:20 Source: patient Limitations: altered mental status History of Present Illness Onset (ago): day(s) (this morning) Location: head Pain Consistency: + other (episode) Quality: + other (confusion) Associated symptoms: + denies other symptoms (abdominal pain, any other pain); no chest pain and no shortness of breath The patient is an 84 year old male who presents to the Emergency Room with complaints of an episode of confusion starting this morning. The patient states that he has no idea why he is here. He notes that he is not in any pain, doesnt have chest pain, doesnt have abdominal pain, and doesnt have shortness of breath. He notes that he is unsure where his is. HPI and ROS are limited secondary to altered mental status. Home Medications Home Medications Medication Instructions Recorded Confirmed Type carbidopa-levodopa 1 tab PO TID 09/11/18 07/25/19 History divalproex 500 mg PO AMPM 09/11/18 07/25/19 History fluticasone propionate [Flonase 2 spray INTRANASAL DAILY 09/11/18 07/25/19 History Allergy Relief] latanoprost (PF) 1 drp OPB HS 09/11/18 07/25/19 History levothyroxine 75 mcg PO QAM 09/11/18 07/25/19 History olanzapine 5 mg PO HS 09/11/18 07/25/19 History lisinopril 20 mg PO DAILY 06/08/19 07/25/19 History aspirin [Aspir-81] 81 mg PO DAILY 07/25/19 07/25/19 History clobetasol 1 applic TOPICAL DAILY 07/25/19 07/25/19 History gabapentin 100 mg PO DAILY 07/25/19 07/25/19 History lidocaine 1 patch TOPICAL DAILY PRN 07/25/19 07/25/19 History multivitamin 1 tab PO DAILY 07/25/19 07/25/19 History polyethylene glycol 3350 [Miralax] 17 g PO DAILY 07/25/19 07/25/19 History psyllium husk 0 g PO DAILY 07/25/19 07/25/19 History simvastatin 20 mg PO PM 07/25/19 07/25/19 History tramadol 50 mg PO BID 07/25/19 07/25/19 History Allergies Allergy/AdvReac Type Severity Reaction Status Date / Time rofecoxib Allergy Mild ITCHING Verified 06/08/19 10:56 clonazepam Allergy Unknown Unknown Verified 07/25/19 16:20 fluphenazine Allergy Unknown Unknown Verified 07/25/19 16:20 imipramine Allergy Unknown Unknown Verified 07/25/19 16:20 lovastatin Allergy Unknown Unknown Verified 07/25/19 16:20 risperidone Allergy Unknown Unknown Verified 07/25/19 16:20 thioridazine Allergy Unknown Unknown Verified 07/25/19 16:20 valproic acid AdvReac Severe unknown Verified 06/08/19 10:56 pseudoephedrine AdvReac Unknown Unknown Verified 07/25/19 16:20 Ethanol Allergy Unknown unk Uncoded 06/08/19 10:56 Past Med/Surg History Medical History 1St degree AV block Allergic rhinitis Bipolar disorder BPH (benign prostatic hyperplasia) Dyslipidemia Epilepsy HLD (hyperlipidemia) HTN (hypertension) Incomplete bladder emptying LAFB (left anterior fascicular block) Parkinson's disease RBBB Secondary polycythemia Surgical History S/P TURP (status post transurethral resection of prostate) Family History Other Stroke Social History Preferred Language: Greek Communication Ability: Effective Hearing Ability: Hard of Hearing Hand Tacker Required: No Beliefs That Will Affect Care: None marital status: Current Living Situation: Spouse current occupational status: retired Feels Safe at Home: Yes Smoking Status: Never smoker Second Hand Exposure: No ; Hx Alcohol Use: No Hx Substance Use: No Review of Systems HPI and ROS are limited secondary to altered mental status Physical Exam Vital Signs Vital Signs - 24 hr 07/25/19 14:48 07/25/19 15:54 07/25/19 16:36 Temperature 36.7 C Temperature Source Oral Pulse Rate 82 Pulse Rate [Left Finger] 82 Respiratory Rate 18 18 Respiratory Effort / Characteristics Non-Labored Spontaneous Respiratory Depth Normal Blood Pressure 144/78 H Blood Pressure [Left Arm] 152/82 H Blood Pressure Mean 100 Blood Pressure Mean [Left Arm] 105 Pulse Oximetry 95 97 96 Oxygen Delivery Method Room Air Room Air Room Air Sepsis Recent Fever Within 48 Hours No Sepsis New/Unexplained Change in Mental Status No Sepsis Action Taken by Nursing No Action Required HENT: Exam performed. - Head: Normocephalic and atraumatic. - Right Ear: External ear normal. No mastoid tenderness. - Left Ear: External ear normal. No mastoid tenderness. - Mouth/Throat: The oropharynx is clear and moist. No trismus in the jaw. No dental abscesses or uvula swelling. No oropharyngeal exudate or tonsillar abscesses. EYES: Conjunctivae and EOM are normal. Pupils are equal, round, and reactive to light. Right eye exhibits no discharge. Left eye exhibits no discharge. No scleral icterus. NECK: Normal range of motion. Neck supple. No JVD present. No spinous process tenderness present. No carotid bruit present. No rigidity. No tracheal deviation and normal range of motion present. No Brudzinski's sign and no Kernig's sign noted. CV: Normal rate, regular rhythm, normal heart sounds and intact distal pulses. There is no peripheral edema. Palpable radial pulses bue. PULM/CHEST: Effort normal and breath sounds normal. No respiratory distress. No stridor. He has no wheezes. He has no rales. - Chest Wall: He exhibits no tenderness. ABD: The abdomen is soft. Bowel sounds are normal. He has no distension. No mass is present. There is no tenderness. There is no rebound, no guarding, no George's sign and no tenderness at McBurney's point. Rovsig negative. MUSC/SKEL: Normal range of motion. There is no peripheral edema, tenderness or deformity. LYMPH: No cervical adenopathy. NEURO: He is alert and oriented x1. He appears to have a masked face. SKIN: Skin is warm and dry. He is not diaphoretic. Course Course 152: The patient was evaluated in room A12B. A complete history and physical exam was performed. 1743: Vital signs stable. Labs and imaging are within normal limits. The patient's is at bedside and states she is having extreme difficulty taking care of the patient at home. She states she cannot care for him as she is ill and her daughter is very ill with cancer. She states that she needs to get to [place] to care for her daughter. She is interested in the patient being admitted for possible senior care placement. I spoke with Eliz Mcintosh [facility]. She will evaluate the patient for further management under Dr. Peraza's service. Medical Decision Making Medical Records Attestation: I reviewed the patient's medical records. Home Medications Current Medication List: was personally reviewed by me Laboratory Data Attestation: I reviewed the patient's lab results. Result diagrams: 07/25/19 15:46 07/25/19 15:46 Lab Results 07/25/19 07/25/19 07/25/19 Range/Units 15:46 15:46 15:46 WBC 6.75 (4.8-10.8) K/uL RBC 5.45 (4.7-6.1) M/uL Hgb 18.5 H (14.0-18.0) g/dL Hct 54.0 H (42-52) % MCV 99.1 (80-100) fL MCH 33.9 (25-34) pg MCHC 34.3 (32-36) g/dL RDW Std Deviation 47.4 H (36.4-46.3) fL RDW Coeff of Dada 13.2 (11.5-14.5) % Plt Count 117 L (130-400) K/uL MPV 10.2 (7.4-10.4) fL Immature Gran % (Auto) 0.1 % Neut % (Auto) 76.8 % Lymph % (Auto) 12.3 % Centre % (Auto) 10.7 % Eos % (Auto) 0.0 % Baso % (Auto) 0.1 % Immature Gran # (Auto) 0.01 (0.00-0.02) K/uL Neut # (Auto) 5.18 (1.4-6.5) K/uL Lymph # (Auto) 0.83 L (1.2-3.4) K/uL Centre # (Auto) 0.72 H (0.11-0.59) K/uL Eos # (Auto) 0.00 (0-0.5) K/uL Baso # (Auto) 0.01 (0-0.2) K/uL PT 10.3 (9.0-12.0) Seconds INR 1.0 (0.9-1.1) APTT 25.9 (21.0-31.0) Seconds PTT Ratio 1.0 Sodium 134 L (136-145) mmol/L Potassium 5.2 H (3.5-5.1) mmol/L Chloride 99 (98-107) mmol/L Carbon Dioxide 28 (21-32) mmol/L Anion Gap 7.0 (3-11) BUN 17 (7-18) mg/dl Creatinine 1.12 (0.6-1.4) mg/dl Est Cr Clr Drug Dosing 60.4 ml/min Est GFR ( Amer) 69.1 Est GFR (Non-Af Amer) 59.6 BUN/Creatinine Ratio 15.0 (10-20) Glucose 103 H (70-99) mg/dl POC Glucose (70-99) Calcium 9.9 (8.5-10.1) mg/dl Magnesium 2.3 (1.8-2.4) mg/dl Urine Color Urine Appearance (Clear) Urine pH (4.5-7.5) Ur Specific [place] (1.000-1.030) Urine Protein (Negative) Urine Glucose (UA) (Negative) Urine Ketones (Negative) Urine Blood (Negative) Urine Nitrite (Negative) Urine Bilirubin (Negative) Urine Urobilinogen (Negative) Ur Leukocyte Esterase (Negative) Urine WBC (Auto) (0-5) /hpf Urine RBC (Auto) (0-4) /hpf U Hyaline Cast (Auto) (0-5) /lpf U Epithel Cells (Auto) (0-5) /lpf Urine Bacteria (Auto) (Negative) Influenza Type A (PCR) (Neg) Influenza Type B (PCR) (Neg) 07/25/19 07/25/19 07/25/19 Range/Units 15:46 16:01 16:30 WBC (4.8-10.8) K/uL RBC (4.7-6.1) M/uL Hgb (14.0-18.0) g/dL Hct (42-52) % MCV (80-100) fL MCH (25-34) pg MCHC (32-36) g/dL RDW Std Deviation (36.4-46.3) fL RDW Coeff of Dada (11.5-14.5) % Plt Count (130-400) K/uL MPV (7.4-10.4) fL Immature Gran % (Auto) % Neut % (Auto) % Lymph % (Auto) % Centre % (Auto) % Eos % (Auto) % Baso % (Auto) % Immature Gran # (Auto) (0.00-0.02) K/uL Neut # (Auto) (1.4-6.5) K/uL Lymph # (Auto) (1.2-3.4) K/uL Centre # (Auto) (0.11-0.59) K/uL Eos # (Auto) (0-0.5) K/uL Baso # (Auto) (0-0.2) K/uL PT (9.0-12.0) Seconds INR (0.9-1.1) APTT (21.0-31.0) Seconds PTT Ratio Sodium (136-145) mmol/L Potassium (3.5-5.1) mmol/L Chloride (98-107) mmol/L Carbon Dioxide (21-32) mmol/L Anion Gap (3-11) BUN (7-18) mg/dl Creatinine (0.6-1.4) mg/dl Est Cr Clr Drug Dosing ml/min Est GFR ( Amer) Est GFR (Non-Af Amer) BUN/Creatinine Ratio (10-20) Glucose (70-99) mg/dl POC Glucose 102 H (70-99) Calcium (8.5-10.1) mg/dl Magnesium (1.8-2.4) mg/dl Urine Color Yellow Urine Appearance Clear (Clear) Urine pH 8.0 H (4.5-7.5) Ur Specific [place] 1.017 (1.000-1.030) Urine Protein Trace H (Negative) Urine Glucose (UA) Negative (Negative) Urine Ketones Negative (Negative) Urine Blood Negative (Negative) Urine Nitrite Negative (Negative) Urine Bilirubin Negative (Negative) Urine Urobilinogen Negative (Negative) Ur Leukocyte Esterase Negative (Negative) Urine WBC (Auto) 0 (0-5) /hpf Urine RBC (Auto) 0-4 (0-4) /hpf U Hyaline Cast (Auto) 0 (0-5) /lpf U Epithel Cells (Auto) 5-10 H (0-5) /lpf Urine Bacteria (Auto) Negative (Negative) Influenza Type A (PCR) Neg for Influ A (Neg) Influenza Type B (PCR) Neg for Influ B (Neg) Imaging Data Radiologist's Impression: Radiology results as stated below per my review and the radiologist's interpretation: XR chest 1V portable CLINICAL HISTORY: 84 years-old Male presenting with ams. TECHNIQUE: Portable upright AP view of the chest was obtained. COMPARISON: 01/19/2017. FINDINGS: Atherosclerosis of the aortic arch. Cardiac silhouette normal in size. Minimal left basilar opacity. Architectural distortion at the left lung base. No new focal opacity. No large effusion or pneumothorax. Several posterior upper left ribs demonstrate chronic fracture deformities as on prior. Degenerative changes of the spine. Upper abdomen normal. IMPRESSION: 1. 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 No acute cardiopulmonary disease. Electronically signed by: Kervin Maher M.D. 07/25/2019 3:[address] head/brain wo con CLINICAL HISTORY: 84 years-old Male with ams. Acute confusion with altered mental status TECHNIQUE: Multiple axial CT images of the head were obtained without contrast. A dose lowering technique was utilized adhering to the principles of ALARA. CT DOSE: 614.27 mGy.cm COMPARISON: Head CT 01/19/2017 FINDINGS: No acute intracranial hemorrhage, midline shift, intracranial mass, hydrocephalus, territorial ischemia or abnormal extra-axial collection. Age- related involutional changes with ex vacuo ventriculomegaly. Patchy white matter hypodensity suggest chronic microvascular ischemic disease. The calvarium is intact. Mild mucosal thickening of the ethmoid sinuses. The mastoid air cells and remaining paranasal sinuses are clear. Soft tissues and orbits are unremarkable. IMPRESSION: No acute intracranial abnormality. The above report was generated using voice recognition software. It may contain grammatical, syntax or spelling errors. Electronically signed by: Vipin Esparza M.D. 07/25/2019 4:18 PM ECG Data Attestation: I personally reviewed and interpreted this ECG as follows: Indication: + altered mental status Rate (beats per minute): 88 Rhythm: + sinus rhythm ECG Intervals/blocks: + First degree AV block ECG ST segments: no ST depression and no ST elevation ECG Findings: + Other (TX interval 264, QRS interval 142, QT-c interval 467, bifasicular block present); no PACs and no PVCs Blood Pressure Blood Pressure Findings: Elevated blood pressure Blood Pressure Disposition: Referred to patients primary care provider MDM Narrative Vital signs stable. Labs and imaging are within normal limits. The patient's is at bedside and states she is having extreme difficulty taking care of the patient at home. She states she cannot care for him as she is ill and her daughter is very ill with cancer. She states that she needs to get to [place] to care for her daughter. She is interested in the patient being admitted for possible senior care placement. I spoke with VERONICA Hart. She will evaluate the patient for further management under Dr. Peraza's service. Impression & Plan Altered mental status, Parkinson's disease dementia Discharge Plan Visit Data Chief Complaint: Confusion ED Provider: Esau Blake Discharge Problem: Altered mental status, Parkinson's disease dementia Patient Disposition: Being Evaluated by Hospitalist Forms Stand Alone Forms: My [facility] Prescriptions Prescriptions: No Action olanzapine 5 mg Tablet 5 mg PO HS RF: 0 levothyroxine 75 mcg Tablet 75 mcg PO QAM RF: 0 divalproex 500 mg Tablet Extended Release 24 Hr 500 mg PO AMPM RF: 0 carbidopa-levodopa 25-100 mg Tablet 1 tab PO TID RF: 0 fluticasone propionate [Flonase Allergy Relief] 50 mcg/actuation [place],Suspension 2 spray INTRANASAL DAILY RF: 0 latanoprost (PF) 0.005 % Drops 1 drp OPB HS RF: 0 lisinopril 20 mg Tablet 20 mg PO DAILY RF: 0 multivitamin Tablet 1 tab PO DAILY RF: 0 polyethylene glycol 3350 [Miralax] 17 gram Powder In Packet 17 g PO DAILY RF: 0 clobetasol 0.05 % Cream 1 applic TOPICAL DAILY RF: 0 aspirin [Aspir-81] 81 mg Tablet,Delayed Release (Dr/Ec) 81 mg PO DAILY RF: 0 tramadol 50 mg Tablet 50 mg PO BID RF: 0 simvastatin 40 mg Tablet 20 mg PO PM RF: 0 lidocaine 5 % Adhesive Patch,Medicated 1 patch TOPICAL DAILY PRN (Reason: Pain) RF: 0 gabapentin 100 mg capsule 100 mg PO DAILY RF: 0 psyllium husk 0.4 gram Capsule 0 g PO DAILY RF: 0 Referrals Referrals: Anthony Ace DO [Primary Care Provider] - Discharge Problem: Altered mental status Qualifiers: Altered mental status type: unspecified Qualified Code(s): R41.82 - Altered men buffy status, unspecified Parkinson's disease dementia Qualifiers: Dementia behavioral disturbance: without behavioral disturbance Qualified Code(s): G20 - Parkinson's disease The scribe's documentation has been prepared under my direction and personally reviewed by me in its entirety. I confirm that the note above accurately reflects all work, treatment, procedures, and medical decision making performed by me.
[2019-07-25] MEDS ORDERED: ACETAMINOPHEN 325 MG TAB PO PRN (19:10)
[2019-07-25] MEDS ORDERED: ONDANSETRON INJ 2 MG/ML 2 ML VIAL IV PRN (19:10)
[2019-07-25] MEDS ORDERED: LIDOCAINE 5% 1 PATCH TD PRN (19:26)
[2019-07-25] MEDS ORDERED: POLYETHYLENE (MIRALAX) 17 GM PACK PO PRN (19:26)
[2019-07-25] MEDS ORDERED: ACETAMINOPHEN 500 MG TAB PO PRN (19:26)
[2019-07-25] MEDS: DIVALPROEX EXTENDED RELEASE 500 MG TAB PO SCH (20:38)
[2019-07-25] MEDS: OLANZapine 5 MG TABLET PO SCH (20:39)
[2019-07-25] MEDS: CARBIDOPA/LEVODOPA 25/100MG TAB PO SCH (20:39)
[2019-07-25] MEDS: SIMVASTATIN 20 MG TAB PO SCH (20:39)
[2019-07-25] MEDS: LATANOPROST 0.005% OP SOLN 2.5 ML BTL OP SCH (20:39)
[2019-07-25] MEDS: HEPARIN SOD 5,000 UNIT/0.5 ML VIAL SQ SCH (21:02)
[2019-07-26] MEDS: HEPARIN SOD 5,000 UNIT/0.5 ML VIAL SQ SCH ×3 (05:19→20:05)
[2019-07-26] MEDS: LEVOTHYROXINE SODIUM 75 MCG TABLET PO SCH (05:19)
[2019-07-26 07:23] LABS: Hematocrit (blood only) 50.3 % (42-52); Hemoglobin 17.5 g/dL (14.0-18.0); Mean Corpuscular Hgb Conc 34.8 g/dL (32-36); Mean Corpuscular Volume 97.9 fL (80-100); Mean Platelet Volume 10.3 fL (7.4-10.4); Platelet Count 115 K/uL (130-400); RDW Coefficient of Variation 13.1 % (11.5-14.5); RDW Standard Deviation 47.4 fL (36.4-46.3); Red Blood Count 5.14 M/uL (4.7-6.1); White Blood Count 7.66 K/uL (4.8-10.8)
[2019-07-26 07:55] LABS: BUN Creatinine Ratio 16.4 (10-20); Calcium 9.1 mg/dl (8.5-10.1); Est GFR (African American) 90.8; Est GFR (Non-African American) 78.3; Potassium 4.3 mmol/L (3.5-5.1)
[2019-07-26] MEDS: GABAPENTIN 100 MG CAP PO SCH (08:39)
[2019-07-26] MEDS: PSYLLIUM 58.6% POWDER PACKET PO SCH (08:39)
[2019-07-26] MEDS: MULTIVITAMIN TAB PO SCH (08:39)
[2019-07-26] MEDS: CARBIDOPA/LEVODOPA 25/100MG TAB PO SCH ×3 (08:39→20:05)
[2019-07-26] MEDS: DIVALPROEX EXTENDED RELEASE 500 MG TAB PO SCH ×2 (08:39→20:05)
[2019-07-26] MEDS: ASPIRIN 81 MG ECTAB PO SCH (08:39)
[2019-07-26] MEDS: FLUTICASONE PROPIONATE NA SPR 16 GM BTL NAE SCH (08:39)
[2019-07-26] MEDS: POLYETHYLENE (MIRALAX) 17 GM PACK PO PRN (08:57)
--- NOTE | 2019-07-26 16:25 | Hospitalist Progress Note ---
Date of Service July 26, 2019 Assessment & Plan (1) Altered mental status: This is an 84-year-old male with a PMH of Parkinson's disease, bipolar disorder, hypertension, RBBB, LAFB, and other medical problems listed below who presents with worsening weakness and confusion on 07/25/19 -No acute lab abnormalities, urinalysis normal, CT head without intracranial abnormality, CXR without acute cardiopulmonary abnormality -mental status appears to be baseline as of 07/26/19 hospitalist evaluation (2) Weakness: Ambulatory dysfunction -possible worsening weakness in the setting of Parkinson's disease -07/26/19: Discussed with patient that his thinks he needs to have more physical therapy and that therapists and vocational case manager appear to assess that patient may benefit from physical rehabilitation or prison facility in regards to his known problems with mobility from Parkinson's. On my exam, patient cannot really sit up and lean forward for lung auscultation. He does try to pull himself up with his legs. He was able to do some walking today under guidance of physical/occupational therapist. (3) Parkinson's disease: -Continue carbidopa levodopa (4) Bipolar disorder: -07/25/19 Depakote levels 50 mcg/ml -continue home Depakote dose twice daily (5) HTN (hypertension): -lisinopril 20 mg daily home medication was held to avoid hypokalemia -resume as lisinopril 5 mg daily for now (6) HLD (hyperlipidemia): -Continue statin DVT Ppx: SQ heparin Code status: FULL per discussion with patient and PCP: Malka Díaz Patient appears to be answer questions appropriately throughout. The confusion for which patient's had brought the hospital for on 07/25/19 appears resolved. Discussed with patient that his thinks he needs to have more physical therapy and that therapists and vocational case manager appear to assess that patient may benefit from physical rehabilitation or prison facility in regards to his known problems with mobility from Parkinson's. On my exam, patient cannot really sit up and lean forward for lung auscultation. He does try to pull himself up with his legs. He was able to do some walking today under guidance of physical/occupational therapist. denies headache or shortness of breath or acute pain. Review of Systems Review of Systems: All systems reviewed & are unremarkable except as noted in HPI & below Physical Exam Constitutional: comfortable Eyes: PERRL, conjunctivae normal, anicteric sclerae EOM intact bilaterally Neck: normal visual inspection Respiratory: normal respiratory effort, lungs clear to auscultation Gastrointestinal (Abdomen): normal bowel sounds, soft, nontender, no hepatosplenomegaly Musculoskeletal: patient cannot really sit up and lean forward for lung auscultation. He does try to pull himself up with his legs Psychiatric: Orientation: alert and cooperative Results & Data Vital Signs (Past 12 Hours) Vital Signs Temp Pulse Resp BP Pulse Ox 07/26/19 16:15 36.7 C 68 19 112/70 91 07/26/19 11:53 36.8 C 75 20 138/76 92 07/26/19 07:48 36.5 C 77 18 153/75 H 91 (1) Altered mental status Altered mental status type: unspecified Qualified Code(s): R41.82 - Altered mental status, unspecified
[2019-07-26] MEDS: LISINOPRIL 5 MG TAB PO SCH (18:23)
[2019-07-26] MEDS: LATANOPROST 0.005% OP SOLN 2.5 ML BTL OP SCH (20:05)
[2019-07-26] MEDS: SIMVASTATIN 20 MG TAB PO SCH (20:05)
[2019-07-26] MEDS: OLANZapine 5 MG TABLET PO SCH (20:06)
[2019-07-27] MEDS: HEPARIN SOD 5,000 UNIT/0.5 ML VIAL SQ SCH ×2 (06:19→13:34)
[2019-07-27] MEDS: LEVOTHYROXINE SODIUM 75 MCG TABLET PO SCH (06:19)
[2019-07-27 07:06] LABS: Hematocrit (blood only) 48.4 % (42-52); Hemoglobin 16.9 g/dL (14.0-18.0); Mean Corpuscular Hemoglobin 34.1 pg (25-34); Mean Corpuscular Hgb Conc 34.9 g/dL (32-36); Mean Corpuscular Volume 97.8 fL (80-100); Mean Platelet Volume 9.8 fL (7.4-10.4); Platelet Count 115 K/uL (130-400); RDW Coefficient of Variation 13.3 % (11.5-14.5); RDW Standard Deviation 47.2 fL (36.4-46.3); Red Blood Count 4.95 M/uL (4.7-6.1); White Blood Count 6.39 K/uL (4.8-10.8)
[2019-07-27 07:31] LABS: BUN Creatinine Ratio 20.5 (10-20); Calcium 9.6 mg/dl (8.5-10.1); Creatinine Clr Calc Pharmacy 66.2 ml/min; Est GFR (African American) 78.2; Est GFR (Non-African American) 67.5; Potassium 4.5 mmol/L (3.5-5.1)
[2019-07-27] MEDS: DIVALPROEX EXTENDED RELEASE 500 MG TAB PO SCH (07:58)
[2019-07-27] MEDS: ASPIRIN 81 MG ECTAB PO SCH (07:58)
[2019-07-27] MEDS: MULTIVITAMIN TAB PO SCH (07:58)
[2019-07-27] MEDS: CARBIDOPA/LEVODOPA 25/100MG TAB PO SCH ×2 (07:58→13:34)
[2019-07-27] MEDS: GABAPENTIN 100 MG CAP PO SCH (07:59)
[2019-07-27] MEDS: LISINOPRIL 5 MG TAB PO SCH (07:59)
[2019-07-27] MEDS: FLUTICASONE PROPIONATE NA SPR 16 GM BTL NAE SCH (07:59)
[2019-07-27] MEDS: PSYLLIUM 58.6% POWDER PACKET PO SCH (07:59)
[2019-07-27] MEDS: POLYETHYLENE (MIRALAX) 17 GM PACK PO PRN (08:00)
[2019-07-27] MEDS ORDERED: ACETAMINOPHEN 325 MG TAB PO PRN (12:41)
--- NOTE | 2019-07-27 13:00 | Hospitalist Progress Note ---
Date of Service July 27, 2019 Assessment & Plan (1) Altered mental status: This is an 84-year-old male with a PMH of Parkinson's disease, bipolar disorder, hypertension, RBBB, LAFB, and other medical problems listed below who presents with worsening weakness and confusion on 07/25/19 -No acute lab abnormalities, urinalysis normal, CT head without intracranial abnormality, CXR without acute cardiopulmonary abnormality -mental status appears to be baseline as of 07/26/19 hospitalist evaluation (2) Weakness: Ambulatory dysfunction -possible worsening weakness in the setting of Parkinson's disease -07/26/19: Discussed with patient that his thinks he needs to have more physical therapy and that therapists and disease case manager appear to assess that patient may benefit from physical rehabilitation or long-term facility in regards to his known problems with mobility from Parkinson's. On my exam, patient cannot really sit up and lean forward for lung auscultation. He does try to pull himself up with his legs. He was able to do some walking today under guidance of physical/occupational therapist. -07/27/19: Discharge to [facility] Outpatient appointments 08/06/2019 3:00 PM Provider Anthony Ace DO Department General Internal Medicine [facility] 08/20/2019 1:00 PM Provider Anthony Ace DO Department General Internal Medicine [facility] 10/23/2019 1:00 PM Provider Jodee Banuelos DO Department Sleep Disorders, [facility] (3) Parkinson's disease: -Continue carbidopa levodopa (4) Bipolar disorder: -07/25/19 Depakote levels 50 mcg/ml -continue home Depakote dose twice daily (5) HTN (hypertension): -lisinopril 20 mg daily home medication was held to avoid hypokalemia -continue as lisinopril 5 mg daily and ongoing after hospial discharge (6) HLD (hyperlipidemia): -Continue statin DVT Ppx: SQ heparin while in hospital Code status: FULL per discussion with patient and Main diagnosis: Parkinson's disease, Bipolar disorder, Hypertension, Generalized weakness, Ambulatory dysfunction Subjective Patient does not have acute confusion. pleasant and cooperative. he has been able to move his extremities. he pulls up on the bed rails for posterior lung auscultation. denies problems with eating. no vomiting. no chest pain. no abdominal pain. Review of Systems Review of Systems: All systems reviewed & are unremarkable except as noted in HPI & below Physical Exam Constitutional: comfortable Eyes: PERRL, conjunctivae normal, anicteric sclerae EOM intact bilaterally Neck: normal visual inspection Respiratory: normal respiratory effort, lungs clear to auscultation Cardiovascular: Rate/Rhythm: regular rate and regular rhythm Gastrointestinal (Abdomen): normal bowel sounds, soft, nontender, no hepatosplenomegaly Musculoskeletal: Head/Neck/Chest: normocephalic and head atraumatic Neurologic: PERRL, EOMI, accommodation nl, no face palsy, no dysarthria moves all extremities Psychiatric: Orientation: alert and cooperative Results & Data Vital Signs (Past 12 Hours) Vital Signs Temp Pulse BP 07/27/19 08:04 36.5 C 58 L 97/56 L (1) Altered mental status Altered mental status type: unspecified Qualified Code(s): R41.82 - Altered mental status, unspecified
--- NOTE | 2019-07-27 13:03 | Discharge Summary ---
Date of Service July 27, 2019 Admission HPI Per Admitting Provider This is an 84-year-old male with a PMH of Parkinson's disease, bipolar disorder, hypertension, RBBB, LAFB, and other medical problems listed below who presents with worsening weakness and confusion since this morning. Patient had difficulty getting out of bed this morning as well as transferring out of chair. Lives with who helps patient with ADLs but with her own health constraints, she does not feel that she is strong enough to to continue to help him. Also notes that patient was confused since this morning, not understanding where he was or why he was me to the hospital. Also endorses shaking of b ilateral upper extremities, which is not his baseline with Parkinson's. Denies any pain. Denies any fever, chills, lightheadedness, visual changes, chest pain, palpitations, shortness of breath, nausea, vomiting, abdominal pain, dysuria, diarrhea or constipation. interested in placement for patient as well as therapy. Patient has benefited from admissions to [facility] in the past for help with ambulation. Ambulates with walker at baseline. Admission Exam Per Admitting Provider General Appearance: WD/WN, vitals as above, NAD, pleasant, chronically ill appearing Head: normocephalic, atraumatic Eyes: normal inspection, PERRL, conjunctivae normal, anicteric sclerae ENT: external ear and nose normal, oropharynx normal Neck: trachea midline, no thyromegaly normal visual inspection Respiratory: normal respiratory effort, lungs clear to auscultation, no wheeze, rales, rhonchi. Normal insp/exp effort, no accessory muscle use Cardiovascular: regular rate, rhythm, no murmur, normal peripheral pulses. Vessels: no JVD or carotid bruit Chest: normal inspection of chest Abdomen/GI: normal bowel sounds, soft, nontender, no hepatosplenomegaly Extremities/Musculoskelatal: no cyanosis or clubbing, extremities motor strength 5/5 Neurologic: PERRL, EOMI, accommodation nl, no face palsy, no dysarthria, CN's II-XI intact bilaterally and moves all extremities. + BUE tremors Psychiatric: A+O to person and place, not to time. Euthymic affect Skin: no rashes, normal color, warm/dry Principal Diagnosis Main diagnosis: Parkinson's disease, Bipolar disorder, Hypertension, Generalized weakness, Ambulatory dysfunction Discharge Exam Constitutional comfortable Eyes PERRL, conjunctivae normal, anicteric sclerae EOM intact bilaterally Neck normal visual inspection Respiratory normal respiratory effort, lungs clear to auscultation Cardiovascular Rate/Rhythm: regular rate and regular rhythm Gastrointestinal (Abdomen) normal bowel sounds, soft, nontender, no hepatosplenomegaly Musculoskeletal Head/Neck/Chest: normocephalic and head atraumatic Neurologic PERRL, EOMI, accommodation nl, no face palsy, no dysarthria moves all extremities Psychiatric Orientation: alert and cooperative Discharge Data Allergies Allergy/AdvReac Type Severity Reaction Status Date / Time rofecoxib Allergy Mild ITCHING Verified 06/08/19 10:56 clonazepam Allergy Unknown Unknown Verified 07/25/19 16:20 fluphenazine Allergy Unknown Unknown Verified 07/25/19 16:20 imipramine Allergy Unknown Unknown Verified 07/25/19 16:20 lovastatin Allergy Unknown Unknown Verified 07/25/19 16:20 risperidone Allergy Unknown Unknown Verified 07/25/19 16:20 thioridazine Allergy Unknown Unknown Verified 07/25/19 16:20 valproic acid AdvReac Severe unknown Verified 06/08/19 10:56 pseudoephedrine AdvReac Unknown Unknown Verified 07/25/19 16:20 Ethanol Allergy Unknown unk Uncoded 06/08/19 10:56 Consultations 07/25/19 17:46 ED Decision to Admit Stat 07/25/19 19:10 Consult Case Management - Discharge Planning Routine Ordered Studies 07/25/19 15:29 CT head/brain wo con Stat Hospital Course (1) Altered mental status: This is an 84-year-old male with a PMH of Parkinson's disease, bipolar disorder, hypertension, RBBB, LAFB, and other medical problems listed below who presents with worsening weakness and confusion on 07/25/19 -No acute lab abnormalities, urinalysis normal, CT head without intracranial abnormality, CXR without acute cardiopulmonary abnormality -mental status appears to be baseline as of 07/26/19 hospitalist evaluation (2) Weakness: Ambulatory dysfunction -possible worsening weakness in the setting of Parkinson's disease -07/26/19: Discussed with patient that his thinks he needs to have more physical therapy and that therapists and case making machine operator appear to assess that patient may benefit from physical rehabilitation or longterm facility in regards to his known problems with mobility from Parkinson's. On my exam, patient cannot really sit up and lean forward for lung auscultation. He does try to pull himself up with his legs. He was able to do some walking today under guidance of physical/occupational therapist. -07/27/19: Discharge to [facility] Outpatient appointments 08/06/2019 3:00 PM Provider Anthony Ace DO Department General Internal Medicine [facility] 08/20/2019 1:00 PM Provider Anthony Ace DO Department General Internal Medicine [facility] 10/23/2019 1:00 PM Provider Jodee Banuelos DO Department Sleep Disorders, [facility] (3) Parkinson's disease: -Continue carbidopa levodopa (4) Bipolar disorder: -07/25/19 Depakote levels 50 mcg/ml -continue home Depakote dose twice daily (5) HTN (hypertension): -lisinopril 20 mg daily home medication was held to avoid hypokalemia -continue as lisinopril 5 mg daily and ongoing after hospial discharge (6) HLD (hyperlipidemia): -Continue statin DVT Ppx: SQ heparin while in hospital Code status: FULL per discussion with patient and Main diagnosis: Parkinson's disease, Bipolar disorder, Hypertension, Generalized weakness, Ambulatory dysfunction Total Time Total Time Spent Total Time Spent (In Minutes): 40 minutes Total Time Includes: Examination of the Patient, Discharge Planning, Medication Reconciliation and Communication With Other Providers Discharge Plan Discharge Items Patient Disposition: Transfer Inpatient Rehab Fac Reason For Visit: AMS,NEED FOR PLACEMENT Discharge Diagnosis: Parkinson's disease, Bipolar disorder, Hypertension, Generalized weakness, Ambulatory dysfunction Condition on Discharge: Good Activity: Per Instructions section Non-emergency contact: Primary Care Provider Call non-emergency contact if: you have any medication questions Follow-up/Referrals: Anthony Ace DO [Primary Care Provider] - Diet: Heart Healthy Addtl Attending Provider Instructions: Discharge to [facility] Outpatient appointments 08/06/2019 3:00 PM Provider Anthony Ace DO Department General Internal Medicine [facility] 08/20/2019 1:00 PM Provider Anthony Ace DO Department General Internal Medicine [facility] 10/23/2019 1:00 PM Provider Jodee Banuelos DO Department Sleep Disorders, [facility] Pending Studies at Discharge: No Stand-Alone Forms: My [facility] Skilled Items Patient informed of condition?: Yes DNR: No Discharge Level of Care: Acute rehab Communicable Disease: No Discharge Prognosis: Stable Lines: None Urinary Catheter: No Medications and DC Order Prescriptions: New lisinopril [Zestril] 5 mg Tablet 5 mg PO QAM 30 Days Qty: 30 RF: 0 acetaminophen [Mapap (acetaminophen)] 325 mg Tablet 325 mg PO Q6H PRN (Reason: fever or pain) 5 Days Qty: 20 RF: 0 Continued olanzapine 5 mg Tablet 5 mg PO HS RF: 0 levothyroxine 75 mcg Tablet 75 mcg PO QAM RF: 0 divalproex 500 mg Tablet Extended Release 24 Hr 500 mg PO AMPM RF: 0 carbidopa-levodopa 25-100 mg Tablet 1 tab PO TID RF: 0 fluticasone propionate [Flonase Allergy Relief] 50 mcg/actuation [place],Susp ension 2 spray INTRANASAL DAILY RF: 0 latanoprost (PF) 0.005 % Drops 1 drp OPB HS RF: 0 multivitamin Tablet 1 tab PO DAILY RF: 0 polyethylene glycol 3350 [Miralax] 17 gram Powder In Packet 17 g PO DAILY PRN (Reason: Constipation) RF: 0 aspirin [Aspir-81] 81 mg Tablet,Delayed Release (Dr/Ec) 81 mg PO DAILY RF: 0 simvastatin 40 mg Tablet 20 mg PO PM RF: 0 lidocaine 5 % Adhesive Patch,Medicated 1 patch TOPICAL DAILY PRN (Reason: Pain) RF: 0 gabapentin 100 mg capsule 100 mg PO DAILY RF: 0 psyllium husk 0.4 gram Capsule 0.4 g PO DAILY RF: 0 Discontinued lisinopril 20 mg Tablet 20 mg PO DAILY RF: 0 acetaminophen 500 mg Tablet 1,000 mg PO Q8H PRN (Reason: Pain) RF: 0 Discharge Orders: Discharge Order (Routine); Ordered 07/27/19 Ordered By: Luis Duff Admission Data Admit Date/Time: 07/25/19 17:51 Attending Provider: Luis Duff Admit Provider: Delia Peraza Primary Care Provider: Anthony Ace Other Providers: Delia Peraza ; [facility] Other Interventions: Discharge Summary Assessment (RN) Last Done: 07/27/19 12:58
== END 2019-07-27 14:05 | DRG 57 ==
LOC: ED 14:39 → SUATTDRO 17:51 → 2N 17:51